=== PATIENT | male | born 1985 | race Caucasian/White ===

== ENCOUNTER 2022-08-26 10:23 | Outpatient (OUT) | payer OTHER, SELFPAY ==
[2022-08-26 10:59] LABS: Bilirubin Urine NEGATIVE (NEGATIVE); Blood Urine NEGATIVE (NEGATIVE); Clarity Urine CLEAR (CLEAR); Color Urine LT. YELLOW (YELLOW); Glucose Urine UA NEGATIVE (NEGATIVE); Ketones Urine NEGATIVE (NEGATIVE); Leukocyte Esterase Urine SMALL (NEGATIVE); Nitrite Urine NEGATIVE (NEGATIVE); Protein Urine NEGATIVE (NEG/TRACE); Specific Gravity Urine 1.015 (1.005-1.025); Urobilinogen Urine 0.2 EU/dL (0.2-1.0); pH Urine 7.5 (5.0-9.0)
[2022-08-26 11:08] LABS: Hematocrit 42.8 % (42.0-54.0); Hemoglobin 14.4 g/dL (14.0-18.0)
[2022-08-26 11:25] LABS: Alanine Aminotransferase 19 U/L (16-63); Albumin Globulin Ratio 1.2; Albumin Level 4.1 g/dL (3.4-5.0); Alkaline Phosphatase 68 U/L (46-116); Amylase 63 U/L (25-115); Anion Gap 12.4; Aspartate Amino Transferase 14 U/L (15-37); BUN Creatinine Ratio 14.3; Bilirubin Total 0.6 mg/dL (0.2-1.0); Calcium 9.3 mg/dL (8.5-10.1); Carbon Dioxide 29.9 mmol/L (21.0-32.0); Chloride 103 mmol/L (98-107); Chol HDL Ratio 3.2; Cholesterol 180 mg/dL (<=200); Estimated GFR (African America >60 (>=60); Estimated GFR (Non-African Ame >60 (>=60); Globulin 3.4 g/dL; Glucose 106 mg/dL (74-106); HDL Cholesterol 57 mg/dL (40-60); LDL Cholesterol Calculated 114.2 mg/dL; Potassium 4.3 mmol/L (3.5-5.1); Sodium 141 mmol/L (136-145); Total Protein 7.5 g/dL (6.4-8.2); Triglycerides 44 mg/dL (<=150); VLDL CHOLESTEROL 8.8 mg/dL
[2022-08-26 11:27] LABS: Estimated Average Glucose 100 mg/dL; Glycohemoglobin A1C 5.1 % (4.5-6.2)
[2022-08-26 11:35] LABS: Prostate Specific Antigen Scrn 1.46 ng/mL (<=4.00)
[2022-08-27 07:09] LABS: HCV Ab Non Reactive (Non Reactive)
[2022-08-27 08:11] LABS: HIV Ab/p24 Ag Screen Non Reactive (Non Reactive)
== END 2022-08-26 10:24 ==
LOC: LAB 10:28
PROVIDERS: PCP Nurse Practitioner Primary Care; Visit Provider Nurse Practitioner Primary Care
DX: Z00.00 Encounter for general adult medical examination without abnormal findings (principal); Z11.59 Encounter for screening for other viral diseases; Z11.4 Encounter for screening for human immunodeficiency virus [HIV]; Z13.6 Encounter for screening for cardiovascular disorders; Z12.5 Encounter for screening for malignant neoplasm of prostate
CPT/HCPCS: 36415; 80053; 80061; 81003; 82150; 83036; 83690; 85014; 85018; 87086; 87150; 87186; G0103

== ENCOUNTER 2022-08-26 15:05 | Outpatient (REF) | payer OTHER, SELFPAY | END 2022-08-26 15:06 | disposition home or self-care (01) | LOC: LAB 15:05 | PROVIDERS: PCP Nurse Practitioner Primary Care; Visit Provider Nurse Practitioner Primary Care | DX: R30.0 Dysuria (principal) ==

== ENCOUNTER 2022-09-20 10:03 | Outpatient (REF) | payer OTHER, SELFPAY | END 2022-09-20 10:04 | disposition home or self-care (01) | LOC: LAB 10:03 | PROVIDERS: PCP Nurse Practitioner Primary Care; Visit Provider Nurse Practitioner Primary Care | DX: N39.0 Urinary tract infection, site not specified (principal) | CPT/HCPCS: 87086 ==

== ENCOUNTER 2022-10-03 20:51 | Outpatient (REF) | payer OTHER, SELFPAY ==
[2022-10-03 21:30] LABS: Bilirubin Urine NEGATIVE (NEGATIVE); Blood Urine SMALL (NEGATIVE); Clarity Urine CLEAR (CLEAR); Color Urine LT. YELLOW (YELLOW); Glucose Urine UA NEGATIVE (NEGATIVE); Ketones Urine NEGATIVE (NEGATIVE); Leukocyte Esterase Urine MODERATE (NEGATIVE); Nitrite Urine NEGATIVE (NEGATIVE); Protein Urine 30 mg/dL (NEG/TRACE); pH Urine 7.5 (5.0-9.0)
[2022-10-03 21:43] LABS: Bacteria Urine SMALL #/HPF (NONE SEEN); Cast Seen? NONE SEEN #/LPF (NONE SEEN); Crystals Seen? None Seen #/HPF (None Seen); Mucus Urine NONE SEEN (NONE SEEN); RBC Urine 0-2 #/HPF (0-2); Squamous Epithelial Cell Urine RARE #/LPF (NONE/RARE); WBC Urine 50-75 #/HPF (NONE SEEN)
== END 2022-10-03 20:52 | disposition home or self-care (01) ==
LOC: LAB 20:51
PROVIDERS: PCP Nurse Practitioner Primary Care; Visit Provider Nurse Practitioner Primary Care
DX: R30.0 Dysuria (principal)
CPT/HCPCS: 81001; 87086; 87150; 87186

== ENCOUNTER 2022-12-20 13:37 | Outpatient (OUT) | payer OTHER, SELFPAY ==
--- NOTE | 2022-12-20 | XR_ITS ---
The [address] [address] Patient Name: MARIAM PURVIS MRN: [id number] date: 1985 Sex: M Assigned Patient Location: LAB Current Patient Location: Accession/Order Number: [id number] Exam Date: 12/20/2022 13:55 Report Date: 12/21/2022 00:15 At the request of: SREEDHAR GARCIA Procedure: XR abdomen 1V EXAMINATION: XR abdomen 1V HISTORY: Kidney stone N20.0 COMPARISON: CT abdomen pelvis 01/25/2021 FINDINGS: KIDNEY/URETER - RIGHT: Questionable 2 adjacent calcifications projecting over superior pole of right kidney, 8 mm and 7 mm respectively. KIDNEY/URETER - LEFT: No visible renal or ureteral calcifications. PELVIS: No visible ureteral stones. Stable pelvic calcifications compatible with phleboliths. BOWEL: No abnormal dilation or deviation. BONES: No acute abnormality. OTHER: Negative. No abnormal gaseous collections. XR/XR abdomen 1V IMPRESSION: 1. Right nephrolithiasis versus summation artifact; new since prior study. Electronically authenticated by: ALDA ALANIS Date: 12/21/2022 00:15
[2022-12-20 15:39] LABS: Prostate Specific Antigen Dx 1.37 ng/mL (<=4.00)
== END 2022-12-20 13:38 | disposition home or self-care (01) ==
LOC: LAB 13:40
PROVIDERS: PCP Nurse Practitioner Primary Care; Visit Provider Urology
DX: Z12.5 Encounter for screening for malignant neoplasm of prostate (principal); N20.0 Calculus of kidney
CPT/HCPCS: 36415; 74018; 84153

== ENCOUNTER 2023-01-03 12:17 | Outpatient (OUT) | payer OTHER, SELFPAY ==
--- NOTE | 2023-01-03 13:04 | PM.PRESUREVA ---
History of Present Illness History of Present Illness Chief complaint: right kidney stone Narrative: Patient presented for preadmission testing. Please see HPI from Dr. Carroll dated 12/30/2022. Review of Systems ROS Narrative Please see ROS from Dr. Carroll dated 12/30/2022. PFSH PFS Medical History (Updated 01/03/23 @ 12:49 by Lizzie Prieto NP) Anxiety ?F41.9 - Anxiety disorder, unspecified (ICD-10) COVID-19 ?U07.1 - COVID-19 (ICD-10) Depression ?F32.A - Depression, unspecified (ICD-10) Electronic cigarette use ?Z78.9 - Other specified health status (ICD-10) Heartburn ?R12 - Heartburn (ICD-10) Hypotension ?I95.9 - Hypotension, unspecified (ICD-10) Insomnia ?G47.00 - Insomnia, unspecified (ICD-10) Kidney stones ?N20.0 - Calculus of kidney (ICD-10) Pancreatitis (2021) ?K85.90 - Acute pancreatitis without necrosis or infection, unspecified (ICD-10) Prostatitis ?N41.9 - Inflammatory disease of prostate, unspecified (ICD-10) Surgical History (Updated 01/03/23 @ 12:49 by Lizzie Prieto NP) History of tonsillectomy ?Z90.89 - Acquired absence of other organs (ICD-10) Family History (Updated 01/03/23 @ 12:49 by Lizzie Prieto NP) Other Family history of colon cancer Family history of diabetes mellitus Family history of heart disease Social History (Updated 01/03/23 @ 12:46 by Lizzie Prieto NP) Within the past year, how often did you have a drink containing alcohol: 2-3 times a week Smoking status: Never smoker Do you use any of these nicotine containing products: e-cigarettes and vaping products Non-prescribed substance use: cannabis (any form) Previous occupational history: [employer] Highest level of school completed/degree received: high school graduate Meds Home Medications and Allergies Allergies Allergy/AdvReac Type Severity Reaction Status Date / Time clindamycin Allergy kim Verified 01/03/23 12:43 metronidazole Allergy kim Verified 01/03/23 12:43 Sulfa (Sulfonamide Allergy Hives Verified 01/03/23 12:43 Antibiotics) Exam Narrative Exam Narrative: Constitutional: Awake, alert, comfortable, well-appearing, nontoxic, interactive, vital signs as charted Head: Normocephalic, atraumatic Neck: Supple, normal appearance, normal range of motion, no meningeal signs, no lymphadenopathy Respiratory: No respiratory distress, breath sounds clear Cardiovascular: Regular rate and rhythm, strong and regular heart tones Abdomen: Nontender, normal bowel sounds, soft, no CVA tenderness Musculoskeletal: Normal gait, no swelling or edema Skin: No rashes or induration, no lesions, only visible skin inspected Neuro: No neurological deficits, normal sensation Psychiatric: Oriented ?3, normal affect Assessment and Plan Assessment and Plan (1) Kidney stones: Plan Right ESWL, possible cystoscopy, right stent placement scheduled with Dr. Carroll 01/19/2023.
--- NOTE | 2023-01-03 13:06 | XR_ITS ---
The [address] [address] Patient Name: MARIAM PURVIS MRN: [id number] date: 1985 Sex: M Assigned Patient Location: [facility] Current Patient Location: [facility] Accession/Order Number: [id number] Exam Date: 01/03/2023 13:00 Report Date: 01/03/2023 13:22 At the request of: SREEDHAR GARCIA Procedure: XR chest 2V EXAM: XR chest 2V HISTORY: Preop exam COMPARISON: None. TECHNIQUE: PA and lateral views of the chest. FINDINGS: The cardiomediastinal silhouette is normal. No focal consolidation is identified. There is no pneumothorax. No pleural effusion is noted. The osseous structures are intact. XR/XR chest 2V IMPRESSION: No acute cardiopulmonary process. Suggestion of COPD. Electronically authenticated by: RUBIN HUYNH Date: 01/03/2023 13:22
[2023-01-03 13:07] LABS: Basophils Percent Auto 0.7 % (0.2-2.0); Eosinophils Absolute Auto 0.1 10^3/uL (0.0-0.7); Hematocrit 41.1 % (42.0-54.0); Hemoglobin 13.7 g/dL (14.0-18.0); Immature Granulocytes Abs Auto 0.02 10^3/uL (0.00-0.03); Immature Granulocytes Pct Auto 0.3 % (0.0-0.5); Lymphocytes Absolute Auto 1.4 10^3/uL (1.2-3.8); Lymphocytes Percent Auto 24.6 % (20.5-60.0); Mean Corpuscular HGB Conc 33.3 g/dL (29.9-35.2); Mean Corpuscular Hemoglobin 32.6 pg (25.9-34.0); Mean Corpuscular Volume 97.9 fL (80.0-94.0); Mean Platelet Volume 9.4 fL (9.5-13.5); Monocytes Absolute Auto 0.3 10^3/uL (0.3-0.8); Monocytes Percent Auto 5.5 % (1.7-12.0); Neutrophils Percent Auto 67.9 % (43.0-75.0); Platelet Count 207 10^3/uL (150-450); Red Cell Distribution Width 12.6 % (11.0-15.0); White Blood Count 5.8 10^3/uL (4.0-11.0)
[2023-01-03 13:51] LABS: Anion Gap 11.9; BUN Creatinine Ratio 12.1; Calcium 8.8 mg/dL (8.5-10.1); Carbon Dioxide 27.7 mmol/L (21.0-32.0); Chloride 104 mmol/L (98-107); Estimated GFR (African America >60 (>=60); Estimated GFR (Non-African Ame >60 (>=60); Glucose 105 mg/dL (74-106); Potassium 4.6 mmol/L (3.5-5.1); Sodium 139 mmol/L (136-145)
[2023-01-03 14:14] LABS: INR 0.96; Partial Thromboplastin Time 26.1 sec (22.3-36.2); Prothrombin Time 10.2 sec (9.0-11.6)
== END 2023-01-03 12:18 | disposition home or self-care (01) ==
PROVIDERS: PCP Nurse Practitioner Primary Care; Visit Provider Urology
DX: Z01.812 Encounter for preprocedural laboratory examination (principal); N20.0 Calculus of kidney; F98.8 Other specified behavioral and emotional disorders with onset usually occurring in childhood and adolescence; N40.0 Benign prostatic hyperplasia without lower urinary tract symptoms; G47.00 Insomnia, unspecified
CPT/HCPCS: 71046; 80048; 85025; 85610; 85730; G0463

== ENCOUNTER 2023-01-19 06:57 | Day surgery (SDC) | payer OTHER, SELFPAY ==
[2023-01-03 13:01] VITALS: BP 95/54; PULSE 60; RESP 14; TEMP 36.3; O2SAT 97; BMI 20.7
[2023-01-19] VITALS (8 sets, daily range): BP systolic 104–178; BP diastolic 73–101; PULSE 49–66; RESP 12–18; TEMP 35.9–36.8; O2SAT 98–100
--- NOTE | 2023-01-19 07:08 | XR_ITS ---
[address] [address] Patient Name: MARIAM PURVIS MRN: [id number] date: 1985 Sex: M Assigned Patient Location: [facility] Current Patient Location: [facility] Accession/Order Number: [id number] Exam Date: 01/19/2023 07:04 Report Date: 01/19/2023 07:35 At the request of: SREEDHAR GARCIA Procedure: XR abdomen 1V EXAMINATION: XR abdomen 1V HISTORY: kidney stone COMPARISON: 12/20/2022 FINDINGS: KIDNEY/URETER - RIGHT: Stable right nephrolith projected over the upper pole measuring 1.4 x 0.8 cm KIDNEY/URETER - LEFT: No visible renal or ureteral calcifications. PELVIS: No visible ureteral calcifications. Any visible calcifications favor phleboliths. BOWEL: No abnormal dilation or deviation. BONES: No acute abnormality. OTHER: Negative. No abnormal gaseous collections. XR/XR abdomen 1V IMPRESSION: Stable right nephrolith Electronically authenticated by: SHAWN FLAHERTY Date: 01/19/2023 07:35
[2023-01-19] MEDS: LACTATED RINGER'S SOLUTION 1,000 ML 50 ML IV (07:29)
[2023-01-19] MEDS: CEFAZOLIN SODIUM/DEXTROSE,ISO 1 GM/50 ML IV.SOLN IV (08:08)
--- NOTE | 2023-01-19 08:48 | PM.URSON ---
Urology Surgery Operative Note Operative Note Procedure Date: 01/19/23 Time Out Performed: yes Pre-op Diagnosis: right nephrolithiasis Post-op Diagnosis: same as pre-op Procedures performed: #1. Right ESWL. Anesthesia: General-LMA Primary Surgeon: Carlos A Carroll Complications: none Estimated blood loss (mL): 0 Findings: large right renal calculus Specimens: none Indications for Procedures: this gentleman has a 1.4 cm right renal calculus which is nonobstructing. He now presents for right ESWL. He has signed an informed consent for this procedure alonng with possible cystoscopy and right stent placement after all risks were explained. Some of these include bleeding, perinephric hematoma, infection and anesthesia. Detailed description of Procedure: The patient was brought to the Operating Room and placed on Siemens electromagnetic lithotripsy treatment table in the supine position. SCDs were placed on their lower extremities and turned on and functioning during the entire case. Timeout was done by all parties in the room. We all agreed upon the patient's identification and the planned procedures for this patient. General Anesthesia was then administered via LMA. Treatment head was then brought to the patient's right side. While using flourscopy the 1.4 cm stone was identified and lined up into the crosshairs. We then began applying shocks at power level II.0 and increased to a maximum power level of 3.5. Intermittent fluoroscopy showed that the stone steadily fragmented. We applied a total of 3000 shocks and our last fluoroscopic image revealed no evidence of soliid stone remaining. The procedure was then terminated. He was then transferred to a rpinckney bed and wheeled to PACU in stable condition.
== END 2023-01-19 09:50 | disposition home or self-care (01) ==
PROVIDERS: PCP Nurse Practitioner Primary Care; Visit Provider Urology
PROC: (CPT 873; principal; 2023-01-19 08:00)
DX: N20.0 Calculus of kidney (principal); G47.00 Insomnia, unspecified; F17.290 Nicotine dependence, other tobacco product, uncomplicated; F41.9 Anxiety disorder, unspecified; Z86.16 Personal history of COVID-19; F32.A Depression, unspecified; R12 Heartburn; Z90.89 Acquired absence of other organs; N40.0 Benign prostatic hyperplasia without lower urinary tract symptoms; N41.1 Chronic prostatitis; N28.1 Cyst of kidney, acquired
CPT/HCPCS: 50590; 36415; 74018; J2704

== ENCOUNTER 2023-08-17 15:38 | Outpatient (OUT) | payer OTHER, SELFPAY ==
--- OUTSIDE RECORDS SUMMARY | 2023-08-17 15:49 | XMS_ITS | CCD ---
Author Organization [facility] Care Team Providers Care Ebay Reseller Name Role Phone ROBERTO KINSEY Referring Unavailable REBECCA HAWKINS Attending Unavailable ROBERTO KINSEY Referring Unavailable Carmen Rebekah Unavailable YUMIKO Holland Attending Provider [phone] Melissa Holland Attending Unavailable Mleissa Holland Admitting Unavailable NO FAMILY, PHYSICIAN Primary [...] Care Unavailable Carlos A CARROLL Attending Unavailable Orzech, Ladonna X Attending Unavailable SHAMMO, NITESH Primary Care Unavailable SHAMMO, NITESH Primary Care Unavailable Orzech, Ladonna X Admitting Unavailable Orzech, Ladonna X Attending Unavailable SHAMMO, NITESH Primary Care Unavailable Carlos A CARROLL Attending Unavailable Allergies Allergy Classification Reported Allergen(s) Allergy Type Date of Onset Reaction(s) Facility (5 sources) Sulfamethoxazole / Trimethoprim; Translations: [sulfamethoxazole-t rimethoprim] Drug Allergy Weal (disorder) [facility] (1 source) Dairy Propensity to adverse reactions stomach upset [place] Other (2 sources) Sulfonamides (Antibiotic); Translations: [Sulfa (Sulfonamide Antibiotics)] Allergy to substance 06-15-19 [facility] (2 sources) Clindamycin; Translations: [clindamycin] Drug Allergy 06-23-19 [facility] (1 source) metroNIDAZOLE Drug Allergy 04-20-19 [facility] (2 sources) Sulfamethoxazole / Trimethoprim; Translations: [Bactrim] Drug Allergy [facility] (4 sources) Clindamycin; Translations: [clindamycin] Drug Allergy Weal (disorder) [facility] (5 sources) Metronidazole; Translations: [metronidazole containing compounds] Drug allergy Weal (disorder) [facility] Medications Current Medications Medication Drug Class(es) Dates Sig (Normalized) Sig (Original) 24 hr alfuzosin hydrochloride 10 mg extended release oral tablet (3 sources) alpha-Adrenergic King Start: 12-30-2022 End: 12-25-2023 take 1 tablet by mouth once daily alfuzosin 10 mg ER Tab 10 mg = 1 tab(s), Oral, Daily, X 90 day(s), # 90 tab(s), Refills(s) 3, Pharmacy: [facility], 181, cm, 12/30/22 9:45:00 EDT, Height/Length [...] day(s), # 42 tab(s), Refills(s) 0, Pharmacy: [facility], 181, cm, 12/30/22 9:45:00 EDT, Height/Length [...] week(s), # 56 cap(s), Refills(s) 0, Pharmacy: [facility], 181, cm, 05/16/23 11:35:00 EST, Height/Length [...] day(s), # 14 tab(s), Refills(s) 0, Pharmacy: [facility], 181, cm, 10/24/22 10:07:00 EDT, Height/Length [...] 10-24-2022 Episodic Other aftercare (1 source) 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; Translations: [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] Onset: 06-24-2022 Episodic Other [...] 19:28 EST FREE TEXT SOURCE: Ivis CALDERON, BOILER OPERATORS SUPERVISOR-C, Ivis CALDERON, BOILER OPERATORS SUPERVISOR-C, Ladonna X Ladonna X FINAL REPORTS Final Report [] Verified Date/Time: 05/18/2023 12:35 EST 5,000 cfu/ml Mixed skin contaminants Performing Locations R1: This test was performed at: [facility], [address] [place] [address], [facility]- , , [facility] Comment on above: Performed By: #### 2 [id number] ####[facility] [address] [place] [address] Screenson 05-18-2023 Screens [id number]#1.00 TIFF Normal [facility] Screens [id number]#1.00 TIFF Normal [facility] Patient Educationon 05-17-19 24 Patient Education Infectious [...] these instructions at home: Medicines ? Take dsaw-osk-izftuus and prescription medicines only as told by [...] Where to find more information ? National [place] of Diabetes and Digestive and Kidney Diseases: (more content not included)... Normal [facility] Urology Office/Clinic Noteon 05-17-2023 Urology Office/Clinic Note [...] Given Patien (more content not included)... Normal [facility] Comment on above: Result Comment: Elec tronically Signed By: CHELY Langston APRN, Ladonna Rodrigues\.br\Date and Time Signed: 05/17/23 16:57 EST RAD - MISCon 01-27-2023 RAD - MISC [id number] 105 [id number]#1.00T IFF Normal [facility] Operative Reporton Operative Report [id number]#1.00T IFF Normal [facility] Lab Reportson 01-12-2023 Lab Reports [id number]#1.00T IFF Normal [facility] Lab Reports [id number]#1.00T IFF Normal [facility] Lab Reports [id number]#1.00T IFF Normal [facility] RAD - MISCon 01-12-2023 RAD - MISC [id number]#1.00T IFF Normal [facility] Ambulatory Visit Summaryon 1 Ambulatory Visit Summary [...] Schedule the Following Appointments Follow Up with JOSE GUTHRIE, Carlos A Burgos, CRYSTAL When: Comments: sched R ESWL w/ poss stent Where: [facility] [address], [place] [address]- [phone] Medications What How Much When Instructions Unchanged [...] these instructions at home: Medicines ? Take txet-lgs-tdflhwx and prescription medicines only as told by [...] ? Ke (more content not included)... Normal [facility] Consent for Procedure/Surger yon 12-30-2022 Consent for Procedure/Surgery [id number]#1.00T IFF Normal [facility] Lab Reportson 12-30-2022 Lab Reports [id number]#1.00T IFF Normal [facility] Patient Educationon 12-31-19 Patient Education Urology Kidney [...] these instructions at home: Medicines ? Take plkz-cfo-hjdndhq and prescription medicines only as told by [...] provider. Document Revised: 11/08/2021 Document Reviewed: 11/08/2021 [employer] Patient Education ? 2022 MD [employer]. Normal [facility] Physician Orderon 12-30-2022 Physician Order [id number]#1.00T IFF Normal [facility] Urology Office/Clinic Noteon 12-30-2022 Urology Office/Clinic Note Chief Complaint PSAKUB HPI Staff 37 yo male here for 2 month f/u. Previous Dx: prostatitis, renal cyst. No hx of urological surgeries. Previous PSA 08/26/22 was 1.4. Pt then started on Levaquin 500mg h89rnmr. [facility] those [facility]... KUB ordered and done 12/20/22 at [facility]. Pt called our office 11/22/22 c/o [...] cortical hypode (more content not included)... Normal [facility] Comment on above: Result Comment: Elec tronically Signed By: JOSE GUTHRIE, Carlos A Burgos\.br\Date and Time Signed: 12/30/22 10:19 EDT\.br\Electronically Co-Signed By: Mary Carmen Montoya\.br\Date and Time Co-Signed: 12/30/22 10:17 EDT RAD - MISCon 12-26-2022 RAD - MISC [id number]#1.00T IFF Normal [facility] Lab Reportson 12-23-2022 Lab Reports [id number]#1.00T IFF Normal [facility] RAD - CT Reporton 11-21-2022 RAD - CT Report [id number]#1.00C D:127 [facility] Lab Reportson 10-25-2022 Lab Reports [id number] [id number]#1.00 CD:127 [facility] Ambulatory Visit Summaryon 0 10-24-2022 Ambulatory Visit Summary MARIAM CLEVELAND :1985 Visit Date:10/24/2022 Ambulatory Visit Instructions Your Diagnosis Prostatitis Renal cyst Prostate cancer screening Tests Performed Urnls Dip Stick Auto w/o Microscopy POC 50704 Your Care Team Attending Physician - Carlos [...] A CARROLL MD Where: [facility] Normal [facility] Lab Reportson 10-24-2022 Lab Reports [id number]#1.00C D:127 Normal [facility] Lab Reports [id number]#1.00 CD:127 Normal [facility] Lab Reports [id number]#1.00 CD:127 Normal [facility] Lab Reports [id number]#1.00 CD:127 Normal [facility] Lab Reports [id number]#1.00 CD:127 Normal [facility] Lab Reports [id number] [id number]#1.00 CD:127 Normal [facility] Patient Educationon 10-25-19 23 Patient Education Infectious [...] these instructions at home: Medicines ? Take zhas-idy-hxbdaxx and prescription medicines only as told by [...] Where to find more information ? National [place] of Diabetes and Digestive and Kidney Diseases: (more content not included)... Normal [facility] Physician Referralon 023 Physician Referral [id number]#1.00C D:127 Normal [facility] Reminderson 10-24-2022 Reminders - [facility] Carm[facility]oya [facility] Sent: 10/24/2022 13:29:00 EDT Show up: 11/24/2022 13:27:00 EDT Subject: PSA Reminder Message Please Remember to:_have pt get PSA drawn after completing abx course (should be done by 11/08/22) for prostatitis. Normal [facility] Urology Office/Clinic Noteon 10-24-2022 Urology Office/Clinic Note [...] [facility] [address], [place] [address]- [phone] Additional Instructions: 2 mos w/ PSA Patient Education Prostatitis I, Mary Carmen Montoya, personally scribed for Dr. Carroll on 10/24/2022 10:54:04. . Documentation recorded by the scribe, Mary Carmen Montoya, accurately reflects the services(s) I performed and decisions made by me. Authenticated by Dr. Carroll on 10/24/2022 10:56:19. Documentation recorded by the scribe, Mary Carmen Montoya, accurately reflects the services(s) I performed and decisions made by me. Authenticated by (more content not included)... Normal [facility] Comment on above: Result Comment: Elec tronically [...] Trimethoprim/Sulfametho xazole <=20 S F Normal [facility] Comment on above: Performed By: #### U RCX #### [facility] [address] [place] [address] Dr. Anisa Carreno UA (CLEAN/CATCH) MICROSCOPIC IF INDICATEon 07-27-2022 Bilirubin Ql (U) Negative Normal NEGATIVE [facility] Comment on above: Performed By: #### U MICRO, ERUR #### [facility] [address] [place] [address] Dr. Anisa Carreno Clarity (U) CLEAR Normal CLEAR [facility] Comment on above: Performed By: #### U MICRO, ERUR #### [facility] [address] [address] [address] Anisa Carreno Color (U) LT. YELLOW Normal YELLOW [facility] Comment on above: Performed By: #### U MICRO, ERUR #### [facility] [address] [place] [address] Dr. Anisa Carreno Glucose Ql (U) Negative Normal NEGATIVE [facility] Comment on above: Performed By: #### U MICRO, ERUR #### [facility] [address] [place] [address] Dr. Anisa Carreno Hemoglobin Ql (U) TRACE-INTACT Abnormal NEGATIVE [facility] Comment on above: Performed By: #### U MICRO, ERUR #### [facility] [address] [place] [address] Dr. Anisa Carreno Ketones Ql (U) Negative Normal NEGATIVE [facility] Comment on above: Performed By: #### U MICRO, ERUR #### [facility] [address] [place] [address] Dr. Anisa Carreno LEUKOCYTES SMALL Abnormal NEGATIVE [facility] Comment on above: Performed By: #### U MICRO, ERUR #### [facility] [address] [place] [address] Dr. Anisa Carreno Nitrite Ql (U) Negative Normal NEGATIVE [facility] Comment on above: Performed By: #### U MICRO, ERUR #### [facility] [address] [address] [address] Anisa Carreno pH (U) 5.5 [pH] Normal 5-9 [facility] Comment on above: Performed By: #### U MICRO, ERUR #### [facility] [address] [place] [address] Dr. Anisa Carreno SPEC GRAVITY 1.025 Normal 1.005-<=1.025 [facility] Comment on above: Performed By: #### U MICRO, ERUR #### [facility] [address] [place] [address] Dr. Anisa Carreno UA PROTEIN Negative Normal NEGATIVE/ TRACE [facility] Comment on above: Performed By: #### U MICRO, ERUR #### [facility] [address] [address] [address] Anisa Carreno UR MICRO IND INDICATED Normal [facility] Comment on above: Performed By: #### U MICRO, ERUR #### [facility] [address] [address] [address] Anisa Carreno Urobilinogen Qn (U) 0.2 {Jody'U}/dL Normal 0.2 - 1.0 [facility] Comment on above: Performed By: #### U MICRO, ERUR #### [facility] [address] [address] [address] Anisa Carreno URINE MICROSCOPIC ONLYon BACTERIA SMALL Abnormal NONE SEEN [facility] Comment on above: Performed By: #### U MICRO, ERUR #### [facility] [address] [place] [address] Dr. Anisa Carreno Bacteria identified Cx Nom (U) CX ALREADY ORDERED Normal [facility] Comment on above: Performed By: #### U MICRO, ERUR #### [facility] [address] [place] [address] Dr. Anisa Carreno CAST NONE SEEN Normal NONE SEEN [facility] Comment on above: Performed By: #### U MICRO, ERUR #### [facility] [address] [address] [address] Anisa Carreno Crystals LM Nom (Urine sed) NONE SEEN Normal NONE SEEN [facility] Comment on above: Performed By: #### U MICRO, ERUR #### [facility] [address] [address] [address] Anisa Carreno Epithelial cells LM Ql (Urine sed) RARE Normal NONE SEEN /RARE [facility] Comment on above: Performed By: #### U MICRO, ERUR #### [facility] [address] [address] [address] Anisa Carreno MUCOUS NONE SEEN Normal NONE SEEN [facility] Comment on above: Performed By: #### U MICRO, ERUR #### [facility] [address] [place] [address] Dr. Anisa Carreno RBC 5-10 Abnormal 0-2 [facility] Comment on above: Performed By: #### U MICRO, ERUR #### [facility] [address] [place] [address] Dr. Anisa Carreno WBC 10-20 Abnormal NONE SEEN [facility] Comment on above: Performed By: #### U MICRO, ERUR #### [facility] [address] [place] [address] Dr. Anisa Carreno CHLAMYDIA/GONOCOCCUS NIDIA (SW AB/URINE/PAPon 06-25-2022 Chlamydia trachomatis, NIDIA Negative Normal Negative [facility] Comment on above: Performed By: #### C T/NGNA #### [facility] [address] [place] [address] Dr. Anisa Carreno Neisseria gonorrhoeae, NIDIA Negative Normal Negative [facility] Comment on above: Performed By: #### C T/NGNA #### [facility] [address] [place] [address] Dr. Anisa Carreno CULTURE URINEon 06-25-2022 CULTURE [...] Trimethoprim/Sulfametho xazole <=20 S F Normal [facility] Comment on above: Performed By: #### U RCX #### [facility] [address] [place] [address] Dr. Anisa Carreno ER URINE PROFILEon 3 Bilirubin Ql (U) Negative Normal NEGATIVE [facility] Comment on above: Performed By: #### U MICRO, ERUR #### [facility] [address] [address] [address] Anisa Carreno Clarity (U) SL CLOUDY Abnormal CLEAR [facility] Comment on above: Performed By: #### U MICRO, ERUR #### [facility] [address] [place] [address] Dr. Anisa Carreno Color (U) LT. YELLOW Normal YELLOW [facility] Comment on above: Performed By: #### U MICRO, ERUR #### [facility] [address] [place] [address] Dr. Anisa Carreno ERUAHD A micrscopic examination will be performed if indicated. Normal [facility] Comment on above: Performed By: #### U MICRO, ERUR #### [facility] [address] [place] [address] Dr. Anisa Carreno Glucose Ql (U) Negative Normal NEGATIVE [facility] Comment on above: Performed By: #### U MICRO, ERUR #### [facility] [address] [place] [address] Dr. Anisa Carreno Hemoglobin Ql (U) TRACE-INTACT Abnormal NEGATIVE [facility] Comment on above: Performed By: #### U MICRO, ERUR #### [facility] [address] [place] [address] Dr. Anisa Carreno Ketones Ql (U) Negative Normal NEGATIVE [facility] Comment on above: Performed By: #### U MICRO, ERUR #### [facility] [address] [place] [address] Dr. Anisa Carreno LEUKOCYTES MODERATE Abnormal NEGATIVE [facility] Comment on above: Performed By: #### U MICRO, ERUR #### [facility] [address] [address] [address] Anisa Carreno Nitrite Ql (U) Negative Normal NEGATIVE [facility] Comment on above: Performed By: #### U MICRO, ERUR #### [facility] [address] [place] [address] Dr. Anisa Carreno pH (U) 6.5 [pH] Normal 5-9 [facility] Comment on above: Performed By: #### U MICRO, ERUR #### [facility] [address] [place] [address] Dr. Anisa Carreno SPEC GRAVITY 1.010 Normal 1.005-<=1.025 [facility] Comment on above: Performed By: #### U MICRO, ERUR #### [facility] [address] [place] [address] Dr. Anisa Carreno UA PROTEIN Negative Normal NEGATIVE/ TRACE [facility] Comment on above: Performed By: #### U MICRO, ERUR #### [facility] [address] [place] [address] Dr. Anisa Carreno UR MICRO IND INDICATED Normal [facility] Comment on above: Performed By: #### U MICRO, ERUR #### [facility] [address] [place] [address] Dr. Anisa Carreno Urobilinogen Qn (U) 0.2 {Jody'U}/dL Normal 0.2 - 1.0 [facility] Comment on above: Performed By: #### U MICRO, ERUR #### [facility] [address] [place] [address] Dr. Anisa Carreno URINE MICROSCOPIC ONLYon BACTERIA TRACE Abnormal NONE SEEN [facility] Comment on above: Performed By: #### U MICRO, ERUR #### [facility] [address] [place] [address] Dr. Anisa Carreno Bacteria identified Cx Nom (U) INDICATED Normal [facility] Comment on above: Performed By: #### U MICRO, ERUR #### [facility] [address] [place] [address] Dr. Anisa Carreno CAST NONE SEEN Normal NONE SEEN [facility] Comment on above: Performed By: #### U MICRO, ERUR #### [facility] [address] [place] [address] Dr. Anisa Carreno Crystals LM Nom (Urine sed) NONE SEEN Normal NONE SEEN [facility] Comment on above: Performed By: #### U MICRO, ERUR #### [facility] [address] [place] [address] Dr. Anisa Carreno Epithelial cells LM Ql (Urine sed) NONE SEEN Normal NONE SEEN /RARE [facility] Comment on above: Performed By: #### U MICRO, ERUR #### [facility] [address] [place] [address] Dr. Anisa Carreno MUCOUS NONE SEEN Normal NONE SEEN [facility] Comment on above: Performed By: #### U MICRO, ERUR #### [facility] [address] [place] [address] Dr. Anisa Carreno RBC 0-2 Normal 0-2 [facility] Comment on above: Performed By: #### U MICRO, ERUR #### [facility] [address] [place] [address] Dr. Anisa Carreno WBC 10-20 Abnormal NONE SEEN [facility] Comment on above: Performed By: #### U MICRO, ERUR #### [facility] [address] [place] [address] Dr. Anisa Carreno CHLAMYDIA/GONOCOCCUS NIDIA ( AB/URINE/PAPon 04-23-2022 Chlamydia trachomatis, NIDIA Negative Normal Negative [facility] Comment on above: Performed By: #### C T/NGNA #### [facility] [address] [address] [address] Anisa Carreno Neisseria gonorrhoeae, NIDIA Negative Normal Negative [facility] Comment on above: Performed By: #### C T/NGNA #### [facility] [address] [place] [address] Dr. Anisa Carreno CULTURE URINEon 04-22-2022 CULTURE [...] Trimethoprim/Sulfametho xazole <=20 S F Normal [facility] Comment on above: Performed By: #### U MICRO, ERUR #### [facility] [address] [place] [address] Dr. Anisa Carreno CBC AUTO DIFFon 04-20-2022 BASO # 0.0 103/ul Normal 0.0-0.1 [facility] Comment on above: Performed By: #### U MICRO, ERUR #### [facility] [address] [place] [address] Dr. Anisa Carreno Basophils/100 WBC (Bld) 0.6 % Normal 0.2-2.0 [facility] Comment on above: Performed By: #### U MICRO, ERUR #### [facility] [address] [place] [address] Dr. Anisa Carreno EO # 0.1 103/ul Normal 0.0-0.7 [facility] Comment on above: Performed By: #### U MICRO, ERUR #### [facility] [address] [place] [address] Dr. Anisa Carreno Eosinophils/100 WBC (Bld) 0.9 % Normal 0.9-7.0 [facility] Comment on above: Performed By: #### U MICRO, ERUR #### [facility] [address] [place] [address] Dr. Anisa Carreno Erythrocyte distribution width (RBC) [Ratio] 12.1 % Normal 11.0-15.0 [facility] Comment on above: Performed By: #### U MICRO, ERUR #### [facility] [address] [place] [address] Dr. Anisa Carreno Hematocrit (Bld) [Volume fraction] 47.2 % Normal 42.0-54.0 [facility] Comment on above: Performed By: #### U MICRO, ERUR #### [facility] [address] [place] [address] Dr. Anisa Carreno Hemoglobin (Bld) [Mass/Vol] 15.8 g/dL Normal 14.0-18.0 [facility] Comment on above: Performed By: #### U MICRO, ERUR #### [facility] [address] [address] [address] Anisa Carreno IG # 0.02 10e3/ul Normal 0.00-0.03 [facility] Comment on above: Performed By: #### U MICRO, ERUR #### [facility] [address] [address] [address] Anisa Carreno IG % 0.3 % Normal 0.0-0.5 [facility] Comment on above: Performed By: #### U MICRO, ERUR #### [facility] [address] [address] [address] Anisa Carreno LYMPH # 1.6 103/ul Normal 1.2-3.8 [facility] Comment on above: Performed By: #### U MICRO, ERUR #### [facility] [address] [place] [address] Dr. Anisa Carreno Lymphocytes/100 WBC (Bld) 24.4 % Normal 20.5-60.0 [facility] Comment on above: Performed By: #### U MICRO, ERUR #### [facility] [address] [place] [address] Dr. Anisa Carreno MANUAL DIFF REQ NO Normal [facility] Comment on above: Performed By: #### U MICRO, ERUR #### [facility] [address] [address] [address] Anisa Carreno MCH (RBC) [Entitic mass] 32.3 pg Normal 25.9-34.0 [facility] Comment on above: Performed By: #### U MICRO, ERUR #### [facility] [address] [address] [address] Anisa Carreno MCHC (RBC) [Mass/Vol] 33.5 g/dL Normal 29.9-35.2 [facility] Comment on above: Performed By: #### U MICRO, ERUR #### [facility] [address] [address] [address] Anisa Carreno MCV (RBC) [Entitic vol] 96.5 fL Critically high 80.0-94.0 [facility] Comment on above: Performed By: #### U MICRO, ERUR #### [facility] [address] [address] [address] Anisa Carreno MONO # 0.5 103/ul Normal 0.3-0.8 [facility] Comment on above: Performed By: #### U MICRO, ERUR #### [facility] [address] [address] [address] Anisa Carreno Monocytes/100 WBC (Bld) 8.1 % Normal 1.7-12.0 [facility] Comment on above: Performed By: #### U MICRO, ERUR #### [facility] [address] [address] [address] Anisa Carreno NEUT # 4.4 103/ul Normal 1.4-6.5 [facility] Comment on above: Performed By: #### U MICRO, ERUR #### [facility] [address] [place] [address] Dr. Anisa Carreno Neutrophils/100 WBC (Bld) 65.7 % Normal 43.0-75.0 [facility] Comment on above: Performed By: #### U MICRO, ERUR #### [facility] [address] [address] [address] Anisa Carreno Platelet mean volume (Bld) [Entitic vol] 8.8 fL Critically low 9.5-13.5 [facility] Comment on above: Performed By: #### U MICRO, ERUR #### [facility] [address] [address] [address] Anisa Carreno PLT 289 103/ul Normal 150-450 [facility] Comment on above: Performed By: #### U MICRO, ERUR #### [facility] [address] [address] [address] Anisa Carreno RBC 4.89 106/ul Normal 4.70-6.10 [facility] Comment on above: Performed By: #### U MICRO, ERUR #### [facility] [address] [address] [address] Anisa Carreno WBC 6.7 103/ul Normal 4.0-11.0 [facility] Comment on above: Performed By: #### U MICRO, ERUR #### [facility] [address] [address] [address] Anisa MOHR URINE PROFILEon 3 Bilirubin Ql (U) Negative Normal NEGATIVE [facility] Comment on above: Performed By: #### U MICRO, ERUR #### [facility] [address] [place] [address] Dr. Anisa Carreno Clarity (U) CLEAR Normal CLEAR [facility] Comment on above: Performed By: #### U MICRO, ERUR #### [facility] [address] [address] [address] Anisa Carreno Color (U) LT. YELLOW Normal YELLOW [facility] Comment on above: Performed By: #### U MICRO, ERUR #### [facility] [address] [place] [address] Dr. Anisa PULLIAMD A micrscopic examination will be performed if indicated. Normal [facility] Comment on above: Performed By: #### U MICRO, ERUR #### [facility] [address] [place] [address] Dr. Anisa Carreno Glucose Ql (U) Negative Normal NEGATIVE [facility] Comment on above: Performed By: #### U MICRO, ERUR #### [facility] [address] [place] [address] Dr. Anisa Carreno Hemoglobin Ql (U) TRACE-INTACT Abnormal NEGATIVE [facility] Comment on above: Performed By: #### U MICRO, ERUR #### [facility] [address] [address] [address] Anisa Carreno Ketones Ql (U) Negative Normal NEGATIVE [facility] Comment on above: Performed By: #### U MICRO, ERUR #### [facility] [address] [address] [address] Anisa Carreno LEUKOCYTES SMALL Abnormal NEGATIVE [facility] Comment on above: Performed By: #### U MICRO, ERUR #### [facility] [address] [place] [address] Dr. Anisa Carreno Nitrite Ql (U) Negative Normal NEGATIVE [facility] Comment on above: Performed By: #### U MICRO, ERUR #### [facility] [address] [place] [address] Dr. Anisa Carreno pH (U) 6.0 [pH] Normal 5-9 [facility] Comment on above: Performed By: #### U MICRO, ERUR #### [facility] [address] [place] [address] Dr. Anisa Carreno SPEC GRAVITY 1.015 Normal 1.005-<=1.025 [facility] Comment on above: Performed By: #### U MICRO, ERUR #### [facility] [address] [place] [address] Dr. Anisa Carreno UA PROTEIN Negative Normal NEGATIVE/ TRACE [facility] Comment on above: Performed By: #### U MICRO, ERUR #### [facility] [address] [place] [address] Dr. Anisa Carreno UR MICRO IND INDICATED Normal [facility] Comment on above: Performed By: #### U MICRO, ERUR #### [facility] [address] [place] [address] Dr. Anisa Carreno Urobilinogen Qn (U) 0.2 {Jody'U}/dL Normal 0.2 - 1.0 [facility] Comment on above: Performed By: #### U MICRO, ERUR #### [facility] [address] [place] [address] Dr. Anisa Carreno LIPASEon 04-20-2022 Lipase [Catalytic activity/Vol] 166.0 U/L Normal 73.0-393.0 [facility] Comment on above: Performed By: #### L IPA, CMP ####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
[2023-08-17 16:39] LABS: Hematocrit 42.4 % (42.0-54.0); Hemoglobin 14.2 g/dL (14.0-18.0); Mean Corpuscular HGB Conc 33.5 g/dL (29.9-35.2); Mean Corpuscular Hemoglobin 32.5 pg (25.9-34.0); Mean Platelet Volume 9.7 fL (9.5-13.5); Platelet Count 269 10^3/uL (150-450); Red Blood Count 4.37 10^6/uL (4.70-6.10); Red Cell Distribution Width 11.9 % (11.0-15.0); White Blood Count 7.8 10^3/uL (4.0-11.0)
[2023-08-17 16:58] LABS: Chol HDL Ratio 3.5; Cholesterol 222 mg/dL (<=200); HDL Cholesterol 63 mg/dL (40-60); Triglycerides 54 mg/dL (<=150); VLDL CHOLESTEROL 10.8 mg/dL
[2023-08-17 16:59] LABS: Alanine Aminotransferase 53 U/L (16-63); Albumin Globulin Ratio 1.6; Albumin Level 4.5 g/dL (3.4-5.0); Alkaline Phosphatase 73 U/L (46-116); Anion Gap 9.9; Aspartate Amino Transferase 11 U/L (15-37); BUN Creatinine Ratio 12.6; Calcium 9.1 mg/dL (8.5-10.1); Carbon Dioxide 30.1 mmol/L (21.0-32.0); Chloride 100 mmol/L (98-107); Estimated GFR (African America >60 (>=60); Estimated GFR (Non-African Ame >60 (>=60); Globulin 2.9 g/dL; Glucose 97 mg/dL (74-106); Sodium 136 mmol/L (136-145); Total Protein 7.4 g/dL (6.4-8.2)
== END 2023-08-17 15:39 | disposition home or self-care (01) ==
LOC: LAB 15:39
PROVIDERS: PCP Nurse Practitioner; Visit Provider Nurse Practitioner
DX: R53.83 Other fatigue (principal); Z13.6 Encounter for screening for cardiovascular disorders; R25.2 Cramp and spasm
CPT/HCPCS: 36415; 80053; 80061; 83735; 84402; 84403; 85027

== ENCOUNTER 2023-08-17 15:45 | Outpatient (OUT) | payer OTHER, SELFPAY ==
--- OUTSIDE RECORDS SUMMARY | 2023-07-27 11:51 | XMS_ITS | CCD ---
Author Organization [facility] Care Team Providers Care Solar Mechanical Engineer Name Role Phone ROBERTO KINSEY Referring Unavailable REBECCA HAWKINS Attending Unavailable ROBERTO KINSEY Referring Unavailable Rebekah Morales Unavailable YUMIKO Holland Attending Provider Melissa Holland Attending Unavailable Melissa Holland Admitting Unavailable NO FAMILY, PHYSICIAN Primary Care Unavailable REQUEST, NONE LISTED Primary Care Unavaila ble REINECK, DR GIO Walters Admitting Unavailabl e REINECK, DR GIO Walters Attending Unavailabl e GRECHNY ., SABRA LOPEZ Consulting Unavailabl e SHAMMO, NITESH Admitting Unavailable SHAMMO, NITESH Attending Unavailable REQUEST, NONE LISTED Primary Care Unavaila ble SHAMMO, NITESH Consulting Unavailable REQUEST, NONE LISTED Primary Care Unavaila ble DIAB ., MARLYS Admitting Unavailable DIAB ., MARLYS Attending Unavailable DIAB ., MARLYS Consulting Unavailable HAY ., DR BECKER Admitting Unavailable HAY ., DR BECKER Attending Unavailable REQUEST, NONE LISTED Primary Care Unavaila ble HAY ., DR BECKER Consulting Unavailable SOUZA ., MR SHERMAN Consulting Unavailable SHAMMO, NITESH MARY LOU Primary Care Physician SHAMMO, NITESH Primary Care Unavailable Carlos A CARROLL Attending Unavailable SHAMMO, NITESH Primary Care Unavailable SHAMMO, NITESH Referring Unavailable Carlos A CARROLL Attending Unavailable SHAMMO, NITESH Primary Care Unavailable Carlos A CARROLL Attending Unavailable Orzech Ladonna X Attending Unavailable SHAMMO, NITSEH Primary Care Unavailable SHAMMO, NITESH Primary Care Unavailable Orzech, Ladonna X Admitting Unavailable Orzech, Ladonna X Attending Unavailable SHAMMO, NITESH Primary Care Unavailable Carlos A CARROLL Attending Unavailable Allergies Allergy Classification Reported Allergen(s) Allergy Type Date of Onset Reaction(s) Facility (5 sources) Sulfamethoxazole / Trimethoprim; Translations: [sulfamethoxazole-t rimethoprim] Drug Allergy Weal (disorder) [facility] (1 source) Dairy Propensity to adverse reactions stomach upset [employer] Other (2 sources) Sulfonamides (Antibiotic); Translations: [Sulfa (Sulfonamide Antibiotics)] Allergy to substance 06-15-19 [facility] (2 sources) Clindamycin; Translations: [clindamycin] Drug Allergy 06-23-19 23 [facility] (1 source) metroNIDAZOLE Drug Allergy 04-20-19 23 [facility] (2 sources) Sulfamethoxazole / Trimethoprim; Translations: [Bactrim] Drug Allergy [facility] (4 sources) Clindamycin; Translations: [clindamycin] Drug Allergy Weal (disorder) [facility] (5 sources) Metronidazole; Translations: [metronidazole containing compounds] Drug allergy Weal (disorder) [facility] Medications Current Medications Medication Drug Class(es) Dates Sig (Normalized) Sig (Original) 24 hr alfuzosin hydrochloride 10 mg extended release oral tablet (3 sources) alpha-Adrenergic King Start: 12-30-2022 End: 12-25-2023 take 1 tablet by mouth once daily alfuzosin 10 mg ER Tab 10 mg = 1 tab(s), Oral, Daily, X 90 day(s), # 90 tab(s), Refills(s) 3, Pharmacy: [id number], 181, cm, 12/30/22 9:45:00 EDT, Height/Length Dosing, 70, kg, 12/30/22 9:45:00 EDT, Weight Dosing Start Date: 12/30/22 Stop Date: 12/25/23 Status: Ordered Calcium and Magnesium oral tablet (1 source) Start: 10-24-2022 Calcium and Magnesium oral tablet 1 tab(s), Oral, Daily, 30 tab(s) Start Date: 10/24/22 Status: Ordered ciprofloxacin 500 mg oral tablet (1 source) Quinolone Antimicrobial Start: 12-30-2022 End: 01-20-2023 take 1 tablet by mouth every twelve hours Cipro 500 mg Tab 500 mg = 1 tab(s), Oral, q12hr, X 21 day(s), # 42 tab(s), Refills(s) 0, Pharmacy: [id number], 181, cm, 12/30/22 9:45:00 EDT, Height/Length Dosing, 70, kg, 12/30/22 9:45:00 EDT, Weight Dosing Start Date: 12/30/22 Stop Date: 01/20/23 Status: Ordered cyclobenzaprine hydrochloride 10 mg oral tablet (1 source) Muscle Relaxant Start: 05-02-2017 take 10 mg by mouth three times daily Cyclobenzaprine Active 10 MG PO Three times daily May 02, 2017 12:00am diclofenac sodium 0.01 mg/mg topical gel (1 source) Nonsteroidal Anti-inflammatory Drug Start: 05-02-2017 apply 2 g topically four times daily Diclofenac Sodium (Voltaren) 1 % gel Active 2 GM TOPICAL Four times daily May 02, 2017 1:34pm apply to single elbow, wrist or hand; gently massage into area; for hand includes palm/fingers/back of hand doxycycline hyclate 100 mg oral capsule (2 sources) Tetracycline-class Drug Start: 05-16-2023 End: 06-13-2023 take 1 capsule by mouth twice daily doxycycline hyclate 100 mg Cap 100 mg = 1 cap(s), Oral, BID, X 4 week(s), # 56 cap(s), Refills(s) 0, Pharmacy: [id number], 181, cm, 05/16/23 11:35:00 EST, Height/Length Dosing, 70, kg, 05/16/23 11:35:00 EST, Weight Dosing Start Date: 05/16/23 Stop Date: 06/13/23 Status: Ordered levoFLOXacin 500 mg oral tablet (1 source) Quinolone Antimicrobial Start: 10-24-2022 End: 11-07-2022 take 1 tablet by mouth every twenty-four hours Levaquin 500 mg Tab 500 mg = 1 tab(s), Oral, q24hr, X 14 day(s), # 14 tab(s), Refills(s) 0, Pharmacy: [id number], 181, cm, 10/24/22 10:07:00 EDT, Height/Length Dosing, 70, kg, 10/24/22 10:07:00 EDT, Weight Dosing Start Date: 10/24/22 Stop Date: 11/07/22 Status: Ordered Multi Vitamin+ (4 sources) Start: 10-24-2022 Multi Vitamin+ 1 tab Start Date: 10/24/22 Status: Ordered predniSONE (2 sources) Start: 05-16-2023 predniSONE 10 mg Tab 10 mg = 1 tab(s) Start Date: 05/16/23 Status: Ordered tiZANidine 4 mg oral tablet (1 source) Central alpha-2 Adrenergic Agonist Start: 06-14-2017 take 4 mg by mouth once daily Tizanidine Active 4 MG PO Daily June 13, 2017 11:00pm Problems Active Problems Problem Classification Problem Date Documented Da te Episodic/Chronic Attention-deficit, conduct, and disruptive behavior disorders (4 sources) Attention deficit hyperactivity disorder, 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 Chronic Calculus of urinary tract (4 sources) Kidney stone; Translations: [Calculus of kidney] Onset: 12-30-2022 Episodic Gastrointestinal hemorrhage (1 source) Hematochezia; Translations: [Melena] 06-14-2017 Episodic Genitourinary symptoms and ill-defined conditions (4 sources) Dysuria; Translations: [Dysuria] Onset: 03-18-2022 Episodic Hyperplasia of prostate (5 sources) Benign prostatic hypertrophy without outflow obstruction; Translations: [Benign prostatic hyperplasia without lower urinary tract symptoms] Onset: 12-30-2022 Chronic Immunizations and screening for infectious disease (2 sources) Contact with and (suspected) exposure to other viral communicable diseases; Translations: [Contact with and (suspected) exposure to other viral communicable diseases] Onset: 11-15-2021 Resolved: 11-15-2021 Episodic Inflammatory conditions of male genital organs (5 sources) Chronic prostatitis; Translations: [Chronic prostatitis] Onset: 12-30-2022 Chronic Inflammatory conditions of male genital organs (1 source) Prostatitis; Translations: [Inflammatory disease of prostate, unspecified] Onset: 10-24-2022 Episodic Other aftercare (1 source) Other long-term (current) drug therapy; Translations: [OTH ADJUNCT PHILOSOPHY FACULTY CURRENT DRUG THERAPY] Onset: 06-24-2022 Episodic Other diseases of kidney and ureters (2 sources) Acquired renal cyst without neoplastic change; Translations: [Cyst of kidney, acquired] Onset: 10-24-2022 Episodic Other diseases of kidney and ureters (4 sources) Cyst of kidney 10-24-2022 Episodic Other screening for suspected conditions (not mental disorders or infectious disease) (2 sources) Encounter for screening for malignant neoplasm of prostate; Translations: [Screening for malignant neoplasm done] Onset: 10-24-2022 Episodic Residual codes; unclassified (4 sources) Insomnia 10-19-2022 Episodic Spondylosis; intervertebral disc disorders; other back problems (1 source) Chronic thoracic back pain; Translations: [Pain in thoracic spine] 06-14-2017 Episodic Substance-related disorders (1 source) Nicotine dependence, cigarettes, uncomplicated; Translations: [NICOTINE DEPEND CIGARETTES UNCOMP] Onset: 06-24-2022 Chronic Unclassified (4 sources) Chronic pain of right upper limb 10-19-2022 Unclassified (4 sources) Patient encounter status 10-24-2022 Urinary tract infections (2 sources) Other urethritis; Translations: [Urinary tract infection, site not specified] Onset: 04-22-2022 Episodic Past or Other Problems Problem Classification Problem Date Documented Da te Episodic/Chronic Bacterial infection; unspecified site (1 source) Chlamydial infection, unspecified; Translations: [CHLAMYDIAL INFECTION UNSPECIFIED] Onset: 04-22-2022 Episodic E Codes: Struck by; against (1 source) Striking against or struck by other objects, initial encounter; Translations: [STRIKING AGNST/STRUCK OTH OBJ INIT] Onset: 10-04-2021 Episodic Nausea and vomiting (4 sources) Nausea; Translations: [NAUSEA] Onset: 04-20-2022 Episodic Open wounds of head; neck; and trunk (1 source) Laceration without foreign body of right eyelid and periocular area, initial encounter; Translations: [LAC NO FB RT EYELID PERIOCULAR INIT] Onset: 10-04-2021 Episodic Other eye disorders (3 sources) Ocular pain, right eye; Translations: [OCULAR PAIN RIGHT EYE] Onset: 10-03-2021 Episodic Other upper respiratory infections (1 source) Acute upper respiratory infection, unspecified Onset: 11-15-2021 Resolved: 11-15-2021 Episodic Sexually transmitted infections (not HIV or hepatitis) (1 source) Gonococcal infection, unspecified; Translations: [GONOCOCCAL INFECTION UNSPECIFIED] Onset: 04-22-2022 Episodic Superficial injury; contusion (3 sources) Contusion of right eyelid and periocular area, initial encounter; Translations: [Injury of conjunctiva and corneal abrasion without foreign body, right eye, initial encounter] Onset: 10-04-2021 Episodic Results Test Name Value Interpretation Reference Range Facility C Urineon 05-18-2023 Bacteria identified Cx Nom (U) Microbiology PROCEDURE: Urine Culture [R1] SOURCE: U Random BODY SITE: COLLECTED DATE/TIME: 05/16/2023 11:46 EST RECEIVED DATE/TIME: 05/16/2023 19:28 EST START DATE/TIME: 05/16/2023 19:28 EST FREE TEXT SOURCE: Ivis CALDERON, PETROLEUM INSPECTOR SUPERVISOR-C, Ivis CALDERON, PETROLEUM INSPECTOR SUPERVISOR-C, Ladonna X Ladonna X FINAL REPORTS Final Report [] Verified Date/Time: 05/18/2023 12:35 EST 5,000 cfu/ml Mixed skin contaminants Performing Locations R1: This test was performed at: [facility], [address] [place] [address], [facility] , , [facility] Comment on above: Performed By: #### [id number] ####[facility] [address] [place], [place] [id number] Screenson 05-18-2023 Screens [id number]#1.00 TIFF Normal [facility] Screens [id number] TIFF Normal [facility] Patient Educationon 05-17-19 24 Patient Education Infectious Disease Prostatitis Prostatitis is swelling or inflammation of the prostate gland, also called the prostate. This gland is about 1.5 inches wide and 1 inch high, and it is involved in making semen. The prostate is located below a man's bladder, in front of the rectum. There are four types of prostatitis: ? Chronic prostatitis (CP), also called chronic pelvic pain syndrome (CPPS). This is the most common type of prostatitis. It is associated with increased muscle tone in the area between the hip bones (pelvic area), around the prostate. This type is also known as a pelvic floor disorder. ? Chronic bacterial prostatitis. This type usually results from an acute bacterial infection in the prostate gland that keeps coming back or has not been treated properly. The symptoms are less severe than those caused by acute bacterial prostatitis, which lasts a shorter time. ? Asymptomatic inflammatory prostatitis. This type does not have symptoms and does not need treatment. This is diagnosed when tests are done for other disorders of the urinary tract or reproductive tract. ? Acute bacterial prostatitis. This type starts quickly and results from an acute bacterial infection in the prostate gland. It is usually associated with a bladder infection, high fever, and chills. This is the least common type of prostatitis. What are the causes? Bacterial prostatitis is caused by an infection from bacteria. Chronic nonbacterial prostatitis may be caused by: ? Factors related to the nervous system. This system includes thebrain, spinal cord, and nerves. ? An autoimmune response. This happens when the body's disease-fighting system attacks healthy tissue in the body by mistake. ? Psychological factors. These have to do with how the mind works. The causes of the other types of prostatitis are usually not known. What are the signs or symptoms? Symptoms of this condition depend on the type of prostatitis you have. Acute bacterial prostatitis Symptoms may include: ? Pain or burning during urination. ? Frequent and sudden urges to urinate. ? Trouble starting to urinate. ? Fever. ? Chills. ? Pain in your muscles or joints, lower back, or lower abdomen. Other types of prostatitis Symptoms may include: ? Sudden urges to urinate, or urinating often. ? Trouble starting to urinate. ? Weak urine stream. ? Dribbling after urination. ? Discharge coming from the penis. ? Pain in the testicles, the penis, or the tip of the penis. ? Pain in the area in front of the rectum and below the scrotum (perineum). ? Pain when ejaculating. How is this diagnosed? This condition may be diagnosed based on: ? A physical and medical exam. ? A digital rectal exam. For this, the health care provider may use a finger to feel the prostate. ? A urine test to check for bacteria. ? A semen sample or blood tests. ? Ultrasound. ? Urodynamic tests to check how your body handles urine. ? Cystoscopy to look inside your bladder or inside the part of your body that drains urine from the bladder (urethra). How is this treated? Treatment for this condition depends on the type of prostatitis. Treatment may involve: ? Medicines to relieve pain or inflammation, or to help relax your muscles. ? Physical therapy. ? Heat therapy. ? Biofeedback. These techniques help you control certain body functions. ? Relaxation exercises. ? Antibiotic medicine, if your condition is caused by bacteria. ? Sitz baths. These warm water baths help to relax your pelvic floor muscles, which helps to relieve pressure on the prostate. Follow these instructions at home: Medicines ? Take qhrr-vaq-cmvinnz and prescription medicines only as told by your health care provider. ? If you were prescribed an antibiotic medicine, take it as told by your health care provider. Do not stop using the antibiotic even if you start to feel better. Managing pain and swelling ? Take sitz baths as directed by your health care provider. For a sitz bath, sit in warm water that is deep enough to cover your hips and buttocks. ? If directed, apply heat to the affected area as often as told by your health care provider. Use the heat source that your health care provider recommends, such as a moist heat pack or a heating pad. ? Place a towel between your skin and the heat source. ? Leave the heat on for 20?30 minutes. ? Remove the heat if your skin turns bright red. This is especially important if you are unable to feel pain, heat, or cold. You may have a greater risk of getting burned. General instructions ? Do exercises as told by your health care provider, if you were prescribed physical therapy, biofeedback, or relaxation exercises. ? Keep all follow-up visits as told by your health care provider. This is important. Where to find more information ? National [place] of Diabetes and Digestive and Kidney Diseases: (more content not included)... Normal [facility] Urology Office/Clinic Noteon 05-17-2023 Urology Office/Clinic Note Chief Complaint possible prostatitis HPI Staff 37 year old male here for possible prostatitis. Dr. Carroll Pt. Last seen 12/30/22. Previous DX: kidney stone, chronic prostatitis (Pt. was given Cipro 250mg x3wks at last visit), BPH and renal cyst. S/P Rt. ESWL done 01/19/23. Dysuria: mild Incomplete bladder emptying: no Hematuria: UA shows trace today Frequency: no Urgency: yes Nocturia: no Stream: good stream Post void dripping: no Wearing pads/ Depends: no Urge incontinence: no Stress incontinence: no Incontinence without Sensory Awareness: no Abdominal pain: no Flank pain: no History of Present Illness I have reviewed and verified the staff HPI to be accurate for this encounter. Review of Systems PHQ Score Initial Depression Screen Score: 0 SCORE Physical Exam Vitals & Measurements HT: 71 in HT: 181 cm WT: 70 kg WT: 154 lb BMI: 21.37 General: Well developed, well nourished, in no acute distress. Genitourinary: Flank Pain: none. Bladder: nonpalpable. Assessment/Plan 1. Chronic prostatitis (N41.1: Chronic prostatitis) UCx 04/20/22, 06/22/22, 07/27/22 - Proteus mirabilis, given Keflex, Rocephin, Doxycycline, and Cipro. Was tx'd with Levaquin 500mg QD x14 days at prior OV and again on 11/23/22 due presentation of pressure in prostate. [1] UA today negative for infection, does have trace intact blood. Pt denies gross hematuria, but does admit to perineal pressure. States that this is not overly bothersome right now, but typically starts as pressure and progresses to full blown UTI . C/o muscle and joint aches, which have been worse since taking cipro months ago. Does admit that he tends to be very sensitive to medications. Reports that he generally improves w/ abx but sxs come right back. Pt is here today requesting cysto d/t prostatitis. Discussed w/ pt that cysto does not necessarily have any clinical significance regarding prostatitis at this time. Pt has tolerated doxycycline okay in the past. Recommend completing longer course of doxycycline to see if this prevents recurrence. Continue alfuzosin 10 mg QD, timed voids. If pt fails therapy, may consider cysto in the future. Will discuss at time of f/u visit. - f/u 3 mos w/ metabolic workup, sooner if needed 2. BPH (benign prostatic hyperplasia) (N40.0: Benign prostatic hyperplasia without lower urinary tract symptoms) Pt previously prescribed alfuzosin 10 mg QD. Reports he has recently stopped this as he does not feel it makes a difference. Discussed importance of alfuzosin in optimizing urination to prevent prostatitis flares. Ordered: Urine Culture 3. Kidney stone (N20.0: Calculus of kidney) CTU 10/25/22 [facility] - nonobstructing 1.2cm RUP stone, no hydro, no L stones. KUB 12/20/22 [facility] - two questionable adjacent 8mm and 7mm stones in RSP, no L stones. [2] s/p R ESWL 01/19/23 Reports that he still occasionally sees small dark grains of sand that pass. Denies flank pain or hematuria. Discussed generalized stone prevention - pt encouraged to increase fluid intake so that he/she producing 2.5L of urine daily. Add 1/4 cup of lemon juice to water throughout the day or can also drink sugar free lemonade or clear soda. Avoid dark marycruz. Restrict sodium intake. Restrict animal protein. Pt was to f/u w/ metabolic workup, but was not able to get ahold of pt. Discussed metabolic workup and valuable information it can potentially give us regarding stone prevention. Pt agrees to complete. - f/u 3 mos w/ met workup. 4. Renal cyst (N28.1: Cyst of kidney, acquired) CT AP w/ con 01/25/21 - bilateral cortical hypodensities, favoring cysts. No hydro. [3] 5. Prostate cancer screening (Z12.5: Encounter for screening for malignant neoplasm of prostate) PSA 08/26/22 - 1.46 12/20/22 - 1.37 [4] Follow-up No qualifying data available Patient Education Benign Prostatic Hyperplasia Dietary Guidelines to Help Prevent Kidney Stones Prostatitis Problem List/Past Medical History Ongoing ADD (attention deficit disorder) BPH (benign prostatic hyperplasia) Chronic prostatitis Chronic right shoulder pain Insomnia Kidney stone Prostate cancer screening Renal cyst Historical No qualifying data Procedure/Surgical History Tonsillectomy. Medications alfuzosin 10 mg ER Tab, 10 mg= 1 tab(s), Oral, Daily, 3 refills, Not taking doxycycline hyclate 100 mg Cap, 100 mg= 1 cap(s), Oral, BID Multi Vitamin+, 1 tab predniSONE 10 mg Tab, 10 mg= 1 tab(s) Allergies clindamycin (Hives) Bactrim (Hives) metronidazole (Hives) Social History Tobacco Never (less than 100 in lifetime) Tobacco Use:. Current vaping or e-cigarette use Smokeless Tobacco Use:. Vaping, Household tobacco concerns: No. Yes, 12/30/2022 Family History Colon cancer stage 1: Grandparent. Diabetes mellitus type 1: Grandparent. Immunizations Vaccine Date Status Comments influenza virus vaccine, inactivated - Not Given Patien (more content not included)... Normal [facility] Comment on above: Result Comment: Elec tronically Signed By: CHELY Langston APRN, Ladonna Rodrigues\.br\Date and Time Signed: 05/17/23 16:57 EST RAD - MISCon 01-27-2023 RAD - MISC [id number] IFF Normal [facility] Operative Reporton Operative Report [id number] IFF Normal [facility] Lab Reportson 01-12-2023 Lab Reports [id number]#1.00T IFF Normal [facility] Lab Reports [id number] IFF Normal [facility] Lab Reports [id number] IFF Normal [facility] RAD - MISCon 01-12-2023 RAD - MISC [id number] IFF Normal [facility] Ambulatory Visit Summaryon 1 Ambulatory Visit Summary MARIAM [place] :1985 Visit Date:12/30/2022 Ambulatory Visit Instructions Your Diagnosis Kidney stone Chronic prostatitis Prostate cancer screening Renal cyst Your Care Team Attending Physician - Carlos A CARROLL MD Primary Care Physician - NITESH JACOBSEN CNP This Is Your Medications List Contact prescribing physician if questions or concerns multivitamin (Multi Vitamin+) Procedures Performed Tonsillectomy. Discharge Vitals Heart Rate (Peripheral) 68 Respiratory Rate 16 Blood Pressure 95/70 Height 181 cm Height 71 in Weight 70 kg Weight 154 lb BMI 21.37 What to do next You Need to Schedule the Following Appointments Follow Up with Carlos A CARROLL MD, URL When: Comments: tracy R ESWL w/ poss stent Where: [facility] [address], [place] [address] [phone] Medications What How Much When Instructions Unchanged multivitamin (Multi Vitamin+) 1 tab Contact prescribing physician if questions or concerns Allergies clindamycin (Hives) Bactrim (Hives) metronidazole (Hives) Problems Ongoing - Any problem that you are currently receiving treatment for. ADD (attention deficit disorder) Chronic prostatitis Chronic right shoulder pain Insomnia Kidney stone Prostate cancer screening Renal cyst Education Materials Kidney Stones Kidney stones are rock-like masses that form inside of the kidneys. Kidneys are organs that make pee (urine). A kidney stone may move into other parts of the urinary tract, including: ? The tubes that connect the kidneys to the bladder (ureters). ? The bladder. ? The tube that carries urine out of the body (urethra). Kidney stones can cause very bad pain and can block the flow of pee. The stone usually leaves your body (passes) through your pee. You may need to have a doctor take out the stone. What are the causes? Kidney stones may be caused by: ? A condition in which certain glands make too much parathyroid hormone (primary hyperparathyroidism). ? A buildup of a type of crystals in the bladder made of a chemical called uric acid. The body makes uric acid when you eat certain foods. ? Narrowing (stricture) of one or both of the ureters. ? A kidney blockage that you were born with. ? Past surgery on the kidney or the ureters, such as gastric bypass surgery. What increases the risk? You are more likely to develop this condition if: ? You have had a kidney stone in the past. ? You have a family history of kidney stones. ? You do not drink enough water. ? You eat a diet that is high in protein, salt (sodium), or sugar. ? You are overweight or very overweight (obese). What are the signs or symptoms? Symptoms of a kidney stone may include: ? Pain in the side of the belly, right below the ribs (flank pain). Pain usually spreads (radiates) to the groin. ? Needing to pee often or right away (urgently). ? Pain when going pee (urinating). ? Blood in your pee (hematuria). ? Feeling like you may vomit (nauseous). ? Vomiting. ? Fever and chills. How is this treated? Treatment depends on the size, location, and makeup of the kidney stones. The stones will often pass out of the body through peeing. You may need to: ? Drink more fluid to help pass the stone. In some cases, you may be given fluids through an IV tube put into one of your veins at the hospital. ? Take medicine for pain. ? Make changes in your diet to help keep kidney stones from coming back. Sometimes, medical procedures are needed to remove a kidney stone. This may involve: ? A procedure to break up kidney stones using a beam of light (laser) or shock waves. ? Surgery to remove the kidney stones. Follow these instructions at home: Medicines ? Take hhvx-ypt-cwqvmry and prescription medicines only as told by your doctor. ? Ask your doctor if the medicine prescribed to you requires you to avoid driving or using heavy machinery. Eating and drinking ? Drink enough fluid to keep your pee pale yellow. You may be told to drink at least 8?10 glasses of water each day. This will help you pass the stone. ? If told by your doctor, change your diet. This may include: ? Limiting how much salt you eat. ? Eating more fruits and vegetables. ? Limiting how much meat, poultry, fish, and eggs you eat. ? Follow instructions from your doctor about eating or drinking restrictions. General instructions ? Collect pee samples as told by your doctor. You may need to collect a pee sample: ? 24 hours after a stone comes out. ? 8?12 weeks after a stone comes out, and every 6?12 months after that. ? Strain your pee every time you pee (urinate), for as long as told. Use the strainer that your doctor recommends. ? Do not throw out the stone. Keep it so that it can be tested by your doctor. ? Ke (more content not included)... [facility] Consent for Procedure/Surger yon 12-30-2022 Consent for Procedure/Surgery [id number] IFF Normal [facility] Lab Reportson 12-30-2022 Lab Reports [id number] IFF Normal [facility] Patient Educationon 12-31-19 Patient Education Urology Kidney Stones Kidney stones are rock-like masses that form inside of the kidneys. Kidneys are organs that make pee (urine). A kidney stone may move into other parts of the urinary tract, including: ? The tubes that connect the kidneys to the bladder (ureters). ? The bladder. ? The tube that carries urine out of the body (urethra). Kidney stones can cause very bad pain and can block the flow of pee. The stone usually leaves your body (passes) through your pee. You may need to have a doctor take out the stone. What are the causes? Kidney stones may be caused by: ? A condition in which certain glands make too much parathyroid hormone (primary hyperparathyroidism). ? A buildup of a type of crystals in the bladder made of a chemical called uric acid. The body makes uric acid when you eat certain foods. ? Narrowing (stricture) of one or both of the ureters. ? A kidney blockage that you were born with. ? Past surgery on the kidney or the ureters, such as gastric bypass surgery. What increases the risk? You are more likely to develop this condition if: ? You have had a kidney stone in the past. ? You have a family history of kidney stones. ? You do not drink enough water. ? You eat a diet that is high in protein, salt (sodium), or sugar. ? You are overweight or very overweight (obese). What are the signs or symptoms? Symptoms of a kidney stone may include: ? Pain in the side of the belly, right below the ribs (flank pain). Pain usually spreads (radiates) to the groin. ? Needing to pee often or right away (urgently). ? Pain when going pee (urinating). ? Blood in your pee (hematuria). ? Feeling like you may vomit (nauseous). ? Vomiting. ? Fever and chills. How is this treated? Treatment depends on the size, location, and makeup of the kidney stones. The stones will often pass out of the body through peeing. You may need to: ? Drink more fluid to help pass the stone. In some cases, you may be given fluids through an IV tube put into one of your veins at the hospital. ? Take medicine for pain. ? Make changes in your diet to help keep kidney stones from coming back. Sometimes, medical procedures are needed to remove a kidney stone. This may involve: ? A procedure to break up kidney stones using a beam of light (laser) or shock waves. ? Surgery to remove the kidney stones. Follow these instructions at home: Medicines ? Take oovx-vwt-gzrpxxa and prescription medicines only as told by your doctor. ? Ask your doctor if the medicine prescribed to you requires you to avoid driving or using heavy machinery. Eating and drinking ? Drink enough fluid to keep your pee pale yellow. You may be told to drink at least 8?10 glasses of water each day. This will help you pass the stone. ? If told by your doctor, change your diet. This may include: ? Limiting how much salt you eat. ? Eating more fruits and vegetables. ? Limiting how much meat, poultry, fish, and eggs you eat. ? Follow instructions from your doctor about eating or drinking restrictions. General instructions ? Collect pee samples as told by your doctor. You may need to collect a pee sample: ? 24 hours after a stone comes out. ? 8?12 weeks after a stone comes out, and every 6?12 months after that. ? Strain your pee every time you pee (urinate), for as long as told. Use the strainer that your doctor recommends. ? Do not throw out the stone. Keep it so that it can be tested by your doctor. ? Keep all follow-up visits as told by your doctor. This is important. You may need follow-up tests. How is this prevented? To prevent another kidney stone: ? Drink enough fluid to keep your pee pale yellow. This is the best way to prevent kidney stones. ? Eat healthy foods. ? Avoid certain foods as told by your doctor. You may be told to eat less protein. ? Stay at a healthy weight. Where to find more information ? National Kidney Foundation (NKF): www.kidney.org ? [employer] (UCF): www.urologyhealth.org Contact a doctor if: ? You have pain that gets worse or does not get better with medicine. Get help right away if: ? You have a fever or chills. ? You get very bad pain. ? You get new pain in your belly (abdomen). ? You pass out (faint). ? You cannot pee. Summary ? Kidney stones are rock-like masses that form inside of the kidneys. ? Kidney stones can cause very bad pain and can block the flow of pee. ? The stones will often pass out of the body through peeing. ? Drink enough fluid to keep your pee pale yellow. This information is not intended to replace advice given to you by your health care provider. Make sure you discuss any questions you have with your health care provider. Document Revised: 11/08/2021 Document Reviewed: 11/08/2021 [employer] Patient Education ? 2022 [employer]. [facility] Physician Orderon 12-30-2022 Physician Order [id number] IFF Normal [facility] Urology Office/Clinic Noteon 12-30-2022 Urology Office/Clinic Note Chief Complaint PSAKUB HPI Staff 37 yo male here for 2 month f/u. Previous Dx: prostatitis, renal cyst. No hx of urological surgeries. Previous PSA 08/26/22 was 1.4. Pt then started on Levaquin 500mg [id number]. [facility]. due to those results... KUB ordered and done 12/20/22 at [facility]. Pt called our office 11/22/22 c/o prostate pressure. Was given another round of Levaquin therapy. Repeat PSA 12/20/22 is 1.37. Currently having prostate pressure. Not aggravated when sitting. States the pressure is above the pubic bone. Mild Pain & Burning while voiding for the past 2wks. C/O low energy. Denies visible blood in urine. Occasional difficulty getting stream started. Intermittent cloudy urine. History of Present Illness Tests reviewed: reviewed UA, PSA, CTU, KUB I have reviewed the previous health record information and history for this patient from Dr. Carroll. I have reviewed and verified the staff HPI to be accurate for this encounter. Review of Systems PHQ Score Initial Depression Screen Score: 0 ROS - Provider Constitutional: denies weight loss, denies hot flashes. Eyes: denies eye problems. Gastrointestinal: denies nausea, denies vomiting. Cardiovascular: denies chest pain or angina. Integumentary: no dryness Musculoskeletal: denies musculoskeletal symptoms. ENMT: denies otolaryngeal symptoms. Respiratory: no shortness of breath. Heme/Lymph: denies easy bleeding tendency, denies easy bruising tendency. Psychiatric: no confusion, no anxiety. Genitourinary: See HPI. Physical Exam Vitals & Measurements HR: 68(Peripheral) RR: 16 BP: 95/70 HT: 71 in HT: 181 cm WT: 70 kg WT: 154 lb BMI: 21.37 General Appearance: alert, no distress, well nourished, well developed male. Genitourinary: normal scrotum, normal testes, normal urethra, normal epididymis, normal vas deferens/spermatic cord. Flank Pain: none. Bladder: nonpalpable. Assessment/Plan 1. Kidney stone (N20.0: Calculus of kidney) CTU 10/25/22 [facility] - nonobstructing 1.2cm RUP stone, no hydro, no L stones. KUB 12/20/22 [facility] - two questionable adjacent 8mm and 7mm stones in RSP, no L stones. Discussed management options including medical expulsive therapy x 4-6 week vs intervention including extracorporeal shockwave lithotripsy vs ureteroscopy with laser lithotripsy/stone basket extraction possible stent. Risks/benefits of each were discussed including but not limited to: MET- renal damage, pain or infection; ESWL- bleeding, hematoma, pain, infection, inability to break up the stone, ureteral obstruction, cardiac arrhythmias, damage to surrounding structures and need for additional procedures; ureteroscopy - bleeding, pain, infection, damage to surrounding structures, ureteral perforation, stricture, inability to treat the stone and need for additional procedures. If a stent is placed, pt understands this is not permanent and needs to be removed or exchanged within 3 months to prevent encrustation, infection, permanent renal damage and need for more invasive procedures. Pt is candidate for ESWL. -Will schedule R ESWL w/ possible stent placement. The procedure risks, benefits, details and treatment alternatives have been discussed with the patient. These include blood in the urine, infection, bleeding around the kidney, kidney bruising, inability to break up the stone, need for blood transfusion, blockage from stone fragments, and need for additional procedures, among others. Full informed consent has been obtained. Will order General anesthesia. 2. Chronic prostatitis (N41.1: Chronic prostatitis) UCx 04/20/22, 06/22/22, 07/27/22 - Proteus mirabilis, given Keflex, Rocephin, Doxycycline, and Cipro. Was tx'd with Levaquin 500mg QD x14 days at prior OV and again on 11/23/22 due presentation of pressure in prostate. UA today negative for blood and infection. Continues to have prostate pressure. Has mild pain/burning with urination. Reports cloudy urine a few weeks ago. Admits he does have some hesitancy with urination. C/o lethargy. States Cipro improved sxs the most. Pt to take Cipro x3 weeks. -Take Cipro 250mg x3wks. Rx sent to [facility]. 3. BPH (benign prostatic hyperplasia) (N40.0: Benign prostatic hyperplasia without lower urinary tract symptoms) Discussed pt has enlarged prostate which obstructs urine channel and promotes prostate infection. See #2. Advised pt medication for bladder outlet will improve long-term urinary sxs. Pt agrees to try Alfuzosin 10mg qd. Discussed the medication side effects, and the patient will monitor closely for these, as well as for symptom improvement. If severe side effects occur, the medication should be stopped and the office notified. -Begin Alfuzosin. Rx sent to [facility]. 4. Prostate cancer screening (Z12.5: Encounter for screening for malignant neoplasm of prostate) PSA 08/26/22 - 1.46 12/20/22 - 1.37 5. Renal cyst (N28.1: Cyst of kidney, acquired) CT AP w/ con 01/25/21 - bilateral cortical hypode (more content not included)... [facility] Comment on above: Result Comment: Elec tronically Signed By: JOSE GUTHRIE, Carlos A Morton.br\Date and Time Signed: 12/30/22 10:19 EDT\.br\Electronically Co-Signed By: Mary Carmen Montoya\.br\Date and Time Co-Signed: 12/30/22 10:17 EDT RAD - MISCon 12-26-2022 RAD - MISC [id number] IFF Normal [facility] Lab Reportson 12-23-2022 Lab Reports [id number] IFF [facility] RAD - CT Reporton 11-21-2022 RAD - CT Report [id number] D:127 Normal [facility] Lab Reportson 10-25-2022 Lab Reports [id number]#1.00 CD:127 Normal [facility] Ambulatory Visit Summaryon 0 10-24-2022 Ambulatory Visit Summary MARIAM C[place] :1985 Visit Date:10/24/2022 Ambulatory Visit Instructions Your Diagnosis Prostatitis Renal cyst Prostate cancer screening Tests Performed Urnls Dip Stick Auto w/o Microscopy POC 64025 Your Care Team Attending Physician - Carlos A CARROLL MD Primary Care Physician - NITESH JACOBSEN CNP Referring Physician - NITESH JACOBSEN CNP This Is Your Medications List levofloxacin (Levaquin 500 mg Tab) Contact prescribing physician if questions or concerns multivitamin (Multi Vitamin+) multivitamin with minerals (Calcium and Magnesium oral tablet) Procedures Performed Tonsillectomy. Discharge Vitals Heart Rate (Peripheral) 80 Blood Pressure 100/60 Height 181 cm Height 71 in Weight 70 kg Weight 154 lb BMI 21.37 What to do next Scheduled Follow-Up Appointments Monday 9:15 AM EDT With: Carlos A CARROLL MD Where: [facility] Lab Reportson 10-24-2022 Lab Reports [id number] D:127 Normal [facility] Lab Reports [id number] CD:127 Normal [facility] Lab Reports [id number] CD:127 Normal [facility] Lab Reports [id number] CD:127 Normal [facility] Lab Reports [id number] CD:127 Normal [facility] Lab Reports [id number]#1.00 CD:127 Normal [facility] Patient Educationon 10-25-19 23 Patient Education Infectious Disease Prostatitis Prostatitis is swelling or inflammation of the prostate gland, also called the prostate. This gland is about 1.5 inches wide and 1 inch high, and it is involved in making semen. The prostate is located below a man's bladder, in front of the rectum. There are four types of prostatitis: ? Chronic prostatitis (CP), also called chronic pelvic pain syndrome (CPPS). This is the most common type of prostatitis. It is associated with increased muscle tone in the area between the hip bones (pelvic area), around the prostate. This type is also known as a pelvic floor disorder. ? Chronic bacterial prostatitis. This type usually results from an acute bacterial infection in the prostate gland that keeps coming back or has not been treated properly. The symptoms are less severe than those caused by acute bacterial prostatitis, which lasts a shorter time. ? Asymptomatic inflammatory prostatitis. This type does not have symptoms and does not need treatment. This is diagnosed when tests are done for other disorders of the urinary tract or reproductive tract. ? Acute bacterial prostatitis. This type starts quickly and results from an acute bacterial infection in the prostate gland. It is usually associated with a bladder infection, high fever, and chills. This is the least common type of prostatitis. What are the causes? Bacterial prostatitis is caused by an infection from bacteria. Chronic nonbacterial prostatitis may be caused by: ? Factors related to the nervous system. This system includes thebrain, spinal cord, and nerves. ? An autoimmune response. This happens when the body's disease-fighting system attacks healthy tissue in the body by mistake. ? Psychological factors. These have to do with how the mind works. The causes of the other types of prostatitis are usually not known. What are the signs or symptoms? Symptoms of this condition depend on the type of prostatitis you have. Acute bacterial prostatitis Symptoms may include: ? Pain or burning during urination. ? Frequent and sudden urges to urinate. ? Trouble starting to urinate. ? Fever. ? Chills. ? Pain in your muscles or joints, lower back, or lower abdomen. Other types of prostatitis Symptoms may include: ? Sudden urges to urinate, or urinating often. ? Trouble starting to urinate. ? Weak urine stream. ? Dribbling after urination. ? Discharge coming from the penis. ? Pain in the testicles, the penis, or the tip of the penis. ? Pain in the area in front of the rectum and below the scrotum (perineum). ? Pain when ejaculating. How is this diagnosed? This condition may be diagnosed based on: ? A physical and medical exam. ? A digital rectal exam. For this, the health care provider may use a finger to feel the prostate. ? A urine test to check for bacteria. ? A semen sample or blood tests. ? Ultrasound. ? Urodynamic tests to check how your body handles urine. ? Cystoscopy to look inside your bladder or inside the part of your body that drains urine from the bladder (urethra). How is this treated? Treatment for this condition depends on the type of prostatitis. Treatment may involve: ? Medicines to relieve pain or inflammation, or to help relax your muscles. ? Physical therapy. ? Heat therapy. ? Biofeedback. These techniques help you control certain body functions. ? Relaxation exercises. ? Antibiotic medicine, if your condition is caused by bacteria. ? Sitz baths. These warm water baths help to relax your pelvic floor muscles, which helps to relieve pressure on the prostate. Follow these instructions at home: Medicines ? Take potl-teu-kgscbej and prescription medicines only as told by your health care provider. ? If you were prescribed an antibiotic medicine, take it as told by your health care provider. Do not stop using the antibiotic even if you start to feel better. Managing pain and swelling ? Take sitz baths as directed by your health care provider. For a sitz bath, sit in warm water that is deep enough to cover your hips and buttocks. ? If directed, apply heat to the affected area as often as told by your health care provider. Use the heat source that your health care provider recommends, such as a moist heat pack or a heating pad. ? Place a towel between your skin and the heat source. ? Leave the heat on for 20?30 minutes. ? Remove the heat if your skin turns bright red. This is especially important if you are unable to feel pain, heat, or cold. You may have a greater risk of getting burned. General instructions ? Do exercises as told by your health care provider, if you were prescribed physical therapy, biofeedback, or relaxation exercises. ? Keep all follow-up visits as told by your health care provider. This is important. Where to find more information ? National [place] of Diabetes and Digestive and Kidney Diseases: (more content not included)... [facility] Physician Referralon 023 Physician Referral [id number] D:127 Normal [facility] Reminderson 10-24-2022 Reminders - From: Mary Carmen Montoya To: ANTONIO Carroll; Sent: 10/24/2022 13:29:00 EDT Show up: 11/24/2022 13:27:00 EDT Subject: PSA Reminder Message Please Remember to:_have pt get PSA drawn after completing abx course (should be done by 11/08/22) for prostatitis. [facility] Urology Office/Clinic Noteon 10-24-2022 Urology Office/Clinic Note Chief Complaint New Pt referal HPI Staff Evaluation requested by Nitesh POWELL due to recurrent prostatitis. Pt is a new pt. Never before seen in our office. CT AP w/ 01/25/21 - Chlam/Jason Swab 04/20/22 +C&S 04/20/22- >100k Proteus Mirabilis 04/20/22- BUN 16.0 & Cr 0.94 - Chlam/Jason Swab 06/22/22 +C&S 06/22/22- >100k Proteus Mirabilis +C&S 07/27/22- >100k Proteus Mirabilis PSA 08/26/22 1.46 Dysuria: _on and off still feels irritation Incomplete bladder emptying: _denies Hematuria: denies visible blood Frequency: 5 times a day Urgency: denies Nocturia: one a night Stream: a little bit Leaking: denies Post void dripping: denies Wearing pads/ Depends: denies Urge incontinence: denies Stress incontinence: denies Incontinence without Sensory Awareness: denies Abdominal pain: denies Flank pain: denies Sexual complaints: denies History of Present Illness Tests reviewed: reviewed UA, referral records I have reviewed the previous health record information and history for this patient from external providers_. I have reviewed and verified the staff HPI to be accurate for this encounter. There have been no associated fever, chills, flank pain, or blood in the urine. Denies any urinary infections since last encounter. Review of Systems PHQ Score Initial Depression Screen Score: 0 ROS - Provider Constitutional: denies weight loss, denies hot flashes. Eyes: denies eye problems. Gastrointestinal: denies nausea, denies vomiting. Cardiovascular: denies chest pain or angina. Integumentary: no dryness Musculoskeletal: denies musculoskeletal symptoms. ENMT: denies otolaryngeal symptoms. Respiratory: no shortness of breath. Heme/Lymph: denies easy bleeding tendency, denies easy bruising tendency. Psychiatric: no confusion, no anxiety. Genitourinary: See HPI. Physical Exam Vitals & Measurements HR: 80(Peripheral) BP: 100/60 HT: 71 in HT: 181 cm WT: 70 kg WT: 154 lb BMI: 21.37 General Appearance: alert, no distress, well nourished, well developed male. Head: normocephalic . Eyes: normal orbit and globe. ENMT: normal examination of external ears. Chest: Lungs CTA, respirations non labored. Cardiovascular: regular rate and rhythm. Abdomen: soft, non distended, mild R cva tenderness, no mass or organomegaly, no hernia. Genitourinary: normal scrotum, normal testes, normal urethra, normal epididymis, normal vas deferens/spermatic cord. Flank Pain: none. Bladder: nonpalpable. Penis: normal shaft, normal glans. Lymph Nodes: unremarkable palpation of the cervical area. Skin: warm, dry, no bruising. Psychiatric: cooperative, affect appropriate for age, normal judgement, euthymic mood. Assessment/Plan New pt referred by SHERRY Meza for repeated bacterial prostatitis. No hx of urological surgeries. 1. Prostatitis (N41.9: Inflammatory disease of prostate, unspecified) UCx 04/20/22, 06/22/22, 07/27/22 - Proteus mirabilis. Pt was given Keflex, Rocephin, Doxycycline, and Cipro. States Cipro seemed to have improved sxs the most. Reports he was on Cipro x7 days. Admits he does have gut sensitivity to abx. Advised pt to have probiotics and yogurt daily while on abx. Pt to begin Levaquin 500mg QD x14 days. Discussed the medication side effects, and the patient will monitor closely for these, as well as for symptom improvement. If severe side effects occur, the medication should be stopped and the office notified. stream is good. he empties well and voids q2-3 hours during the day. No recent CT scan done. UA today shows trace-intact blood and is negative for infection. Discussed importance of adequate bladder emptying as well as increased fluid intake. Pt has CT scan scheduled tomorrow and will schedule a possible cystoscopy depending on results. All questions/concerns were discussed. Pt to call the office if he encounters any issues prior. Pt acknowledges understanding. 2. Renal cyst (N28.1: Cyst of kidney, acquired) CT AP w/ con 01/25/21 showed bilateral cortical hypodensities, favoring cysts. No hydro. 3. Prostate cancer screening (Z12.5: Encounter for screening for malignant neoplasm of prostate) Most recent PSA 08/26/22 is 1.46. Discussed this may be elevated due to prostate infection. Pt to get PSA redrawn after completing abx course. Follow-up With When Contact Information JOSE GUTHRIE, Carlos A Burgos, URL [facility] [address], [place] [phone]- [phone] Additional Instructions: 2 mos w/ PSA Patient Education Prostatitis I, Mary Carmen Montyoa, personally scribed for Dr. Carroll on 10/24/2022 10:54:04. . Documentation recorded by the scribMary Carmen gooden, accurately reflects the services(s) I performed and decisions made by me. Authenticated by Dr. Carroll on 10/24/2022 10:56:19. Documentation recorded by the bethanyibMary Carmen gooden, accurately reflects the services(s) I performed and decisions made by me. Authenticated by (more content not included)... Normal [facility] Comment on above: Result Comment: Elec tronically Signed By: Carlos A CARROLL MD\.br\Date and Time Signed: 10/24/22 10:57 EDT\.br\Electronically Co-Signed By: Mary Carmen Montoya\.br\Date and Time Co-Signed: 10/24/22 10:54 EDT CULTURE URINEon 07-29-2022 CULTURE URINE Isolate 1 Proteus mirabilis >100,000 cfu/mL of ORGANISM 1 Proteus mirabilis ANTIBIOTIC M.I.C RX STATUS Ampicillin <=2 S F Ampicillin/Sulbactam <=2 S F Piperacillin/Tazobactam <=4 S F Cefazolin <=4 S F Ceftazidime <=1 S F Ceftriaxone <=1 S F Ertapenem <=0.5 S F Imipenem 1 S F Amikacin <=2 S F Gentamicin <=1 S F Tobramycin <=1 S F Ciprofloxacin <=0.25 S F Levofloxacin <=0.12 S F Nitrofurantoin 128 R F Trimethoprim/Sulfametho xazole <=20 S F Normal [facility] Comment on above: Performed By: #### U RCX #### [facility] [address] [place] [address] Dr. Anisa Carreno UA (CLEAN/CATCH) MICROSCOPIC IF INDICATEon 07-27-2022 Bilirubin Ql (U) Negative Normal NEGATIVE [facility] Comment on above: Performed By: #### U MICRO, ERUR #### [facility] [address] [address] [address] Anisa Carreno Clarity (U) CLEAR Normal CLEAR [facility] Comment on above: Performed By: #### U MICRO, ERUR #### [facility] [address] [address] [address] Anisa Carreno Color (U) LT. YELLOW Normal YELLOW [facility] Comment on above: Performed By: #### U MICRO, ERUR #### [facility] [address] [place] [address] Dr. Anisa Carreno Glucose Ql (U) Negative Normal NEGATIVE [facility] Comment on above: Performed By: #### U MICRO, ERUR #### [facility] [address] [place] [address] Dr. Anisa Carreno Hemoglobin Ql (U) TRACE-INTACT Abnormal NEGATIVE [facility] Comment on above: Performed By: #### U MICRO, ERUR #### [facility] [address] [place] [address] Dr. Anisa Carreno Ketones Ql (U) Negative Normal NEGATIVE [facility] Comment on above: Performed By: #### U MICRO, ERUR #### [facility] [address] [place] [address] Dr. Anisa Carreno LEUKOCYTES SMALL Abnormal NEGATIVE [facility] Comment on above: Performed By: #### U MICRO, ERUR #### [facility] [address] [place] [address] Dr. Anisa Carreno Nitrite Ql (U) Negative Normal NEGATIVE [facility] Comment on above: Performed By: #### U MICRO, ERUR #### [facility] [address] [address] [address] Anisa Carreno pH (U) 5.5 [pH] Normal 5-[address] [facility] Comment on above: Performed By: #### U MICRO, ERUR #### [facility] [address] [place] [address] Dr. Anisa Carreno SPEC GRAVITY 1.025 Normal 1.005-<=1.025 [facility] Comment on above: Performed By: #### U MICRO, ERUR #### [facility] [address] [place] [address] Dr. Anisa Carreno UA PROTEIN Negative Normal NEGATIVE/ TRACE [facility] Comment on above: Performed By: #### U MICRO, ERUR #### [facility] [address] [address] [address] Anisa Carreno UR MICRO IND INDICATED Normal [facility] Comment on above: Performed By: #### U MICRO, ERUR #### [facility] [address] [address] [address] Anisa Carreno Urobilinogen Qn (U) 0.2 {Jody'U}/dL Normal 0.2 - 1.0 [facility] Comment on above: Performed By: #### U MICRO, ERUR #### [facility] [address] [address] [address] Anisa Carreno URINE MICROSCOPIC ONLYon BACTERIA SMALL Abnormal NONE SEEN [facility] Comment on above: Performed By: #### U MICRO, ERUR #### [facility] [address] [place] [address] Dr. Anisa Carreno Bacteria identified Cx Nom (U) CX ALREADY ORDERED Normal [facility] Comment on above: Performed By: #### U MICRO, ERUR #### [facility] [address] [address] [address] Anisa Carreno CAST NONE SEEN Normal NONE SEEN [facility] Comment on above: Performed By: #### U MICRO, ERUR #### [facility] [address] [address] [address] Anisa Carreno Crystals LM Nom (Urine sed) NONE SEEN Normal NONE SEEN [facility] Comment on above: Performed By: #### U MICRO, ERUR #### [facility] [address] [address] [address] Anisa Carreno Epithelial cells LM Ql (Urine sed) RARE Normal NONE SEEN /RARE [facility] Comment on above: Performed By: #### U MICRO, ERUR #### [facility] [address] [address] [address] Anisa Carreno MUCOUS NONE SEEN Normal NONE SEEN [facility] Comment on above: Performed By: #### U MICRO, ERUR #### [facility] [address] [place] [address] Dr. Anisa Carreno RBC 5-10 Abnormal 0-2 [facility] Comment on above: Performed By: #### U MICRO, ERUR #### [facility] [address] [place] [address] Dr. Anisa Carreno WBC 10-20 Abnormal NONE SEEN [facility] Comment on above: Performed By: #### U MICRO, ERUR #### [facility] [address] [place] [address] Dr. Anisa Carreno CHLAMYDIA/GONOCOCCUS NIDIA (SW AB/URINE/PAPon 06-25-2022 Chlamydia trachomatis, NIDIA Negative Normal Negative [facility] Comment on above: Performed By: #### C T/NGNA #### [facility] [address] [place] [address] Dr. Anisa Carreno Neisseria gonorrhoeae, NIDIA Negative Normal Negative [facility] Comment on above: Performed By: #### C T/NGNA #### [facility] [address] [place] [address] Dr. Anisa Carreno CULTURE URINEon 06-25-2022 CULTURE URINE Isolate 1 Proteus mirabilis 100,000 cfu/mL of ORGANISM 1 Proteus mirabilis ANTIBIOTIC M.I.C RX STATUS Ampicillin <=2 S F Ampicillin/Sulbactam <=2 S F Piperacillin/Tazobactam <=4 S F Cefazolin <=4 S F Ceftazidime <=1 S F Ceftriaxone <=1 S F Ertapenem <=0.5 S F Imipenem 1 S F Amikacin <=2 S F Gentamicin <=1 S F Tobramycin <=1 S F Ciprofloxacin <=0.25 S F Levofloxacin <=0.12 S F Nitrofurantoin 128 R F Trimethoprim/Sulfametho xazole <=20 S F Normal [facility] Comment on above: Performed By: #### U RCX #### [facility] [address] [place] [address] Dr. Anisa Carreno ER URINE PROFILEon 3 Bilirubin Ql (U) Negative Normal NEGATIVE [facility] Comment on above: Performed By: #### U MICRO, ERUR #### [facility] [address] [address] [address] Anisa Carreno Clarity (U) SL CLOUDY Abnormal CLEAR [facility] Comment on above: Performed By: #### U MICRO, ERUR #### [facility] [address] [place] [address] Dr. Anisa Carreno Color (U) LT. YELLOW Normal YELLOW [facility] Comment on above: Performed By: #### U MICRO, ERUR #### [facility] [address] [place] [address] Dr. Anisa Carreno ERUAHD A micrscopic examination will be performed if indicated. Normal [facility] Comment on above: Performed By: #### U MICRO, ERUR #### [facility] [address] [place] [address] Dr. Anisa Carreno Glucose Ql (U) Negative Normal NEGATIVE [facility] Comment on above: Performed By: #### U MICRO, ERUR #### [facility] [address] [place] [address] Dr. Anisa Carreno Hemoglobin Ql (U) TRACE-INTACT Abnormal NEGATIVE [facility] Comment on above: Performed By: #### U MICRO, ERUR #### [facility] [address] [place] [address] Dr. Anisa Crareno Ketones Ql (U) Negative Normal NEGATIVE [facility] Comment on above: Performed By: #### U MICRO, ERUR #### [facility] [address] [place] [address] Dr. Anisa Carreno LEUKOCYTES MODERATE Abnormal NEGATIVE [facility] Comment on above: Performed By: #### U MICRO, ERUR #### [facility] [address] [place] [address] Dr. Anisa Carreno Nitrite Ql (U) Negative Normal NEGATIVE [facility] Comment on above: Performed By: #### U MICRO, ERUR #### [facility] [address] [place] [address] Dr. Anisa Carreno pH (U) 6.5 [pH] Normal 5-[address] [facility] Comment on above: Performed By: #### U MICRO, ERUR #### [facility] [address] [address] [address] Anisa Carreno SPEC GRAVITY 1.010 Normal 1.005-<=1.025 [facility] Comment on above: Performed By: #### U MICRO, ERUR #### [facility] [address] [place] [address] Dr. Anisa Carreno UA PROTEIN Negative Normal NEGATIVE/ TRACE [facility] Comment on above: Performed By: #### U MICRO, ERUR #### [facility] [address] [place] [address] Dr. Anisa Carreno UR MICRO IND INDICATED Normal [facility] Comment on above: Performed By: #### U MICRO, ERUR #### [facility] [address] [place] [address] Dr. Anisa Carreno Urobilinogen Qn (U) 0.2 {Jody'U}/dL Normal 0.2 - 1.0 [facility] Comment on above: Performed By: #### U MICRO, ERUR #### [facility] [address] [place] [address] Dr. Anisa Carreno URINE MICROSCOPIC ONLYon BACTERIA TRACE Abnormal NONE SEEN [facility] Comment on above: Performed By: #### U MICRO, ERUR #### [facility] [address] [place] [address] Dr. Anisa Carreno Bacteria identified Cx Nom (U) INDICATED Normal [facility] Comment on above: Performed By: #### U MICRO, ERUR #### [facility] [address] [place] [address] Dr. Anisa Carreno CAST NONE SEEN Normal NONE SEEN [facility] Comment on above: Performed By: #### U MICRO, ERUR #### [facility] [address] [place] [address] Dr. Anisa Carreno Crystals LM Nom (Urine sed) NONE SEEN Normal NONE SEEN [facility] Comment on above: Performed By: #### U MICRO, ERUR #### [facility] [address] [place] [address] Dr. Anisa Carreno Epithelial cells LM Ql (Urine sed) NONE SEEN Normal NONE SEEN /RARE [facility] Comment on above: Performed By: #### U MICRO, ERUR #### [facility] [address] [place] [address] Dr. Anisa Carreno MUCOUS NONE SEEN Normal NONE SEEN [facility] Comment on above: Performed By: #### U MICRO, ERUR #### [facility] [address] [address] [address] Anisa Carreno RBC 0-2 Normal 0-2 [facility] Comment on above: Performed By: #### U MICRO, ERUR #### [facility] [address] [place] [address] Dr. Anisa Carreno WBC 10-20 Abnormal NONE SEEN [facility] Comment on above: Performed By: #### U MICRO, ERUR #### [facility] [address] [place] [address] Dr. Anisa Carreno CHLAMYDIA/GONOCOCCUS NIDIA (SW AB/URINE/PAPon 04-23-2022 Chlamydia trachomatis, NIDIA Negative Normal Negative [facility] Comment on above: Performed By: #### C T/NGNA #### [facility] [address] [place] [address] Dr. Anisa Carreno Neisseria gonorrhoeae, NIDIA Negative Normal Negative [facility] Comment on above: Performed By: #### C T/NGNA #### [facility] [address] [place] [address] Dr. Anisa Carreno CULTURE URINEon 04-22-2022 CULTURE URINE Isolate 1 Proteus mirabilis >100,000 cfu/mL of ORGANISM 1 Proteus mirabilis ANTIBIOTIC M.I.C RX STATUS Ampicillin <=2 S F Ampicillin/Sulbactam <=2 S F Piperacillin/Tazobactam <=4 S F Cefazolin <=4 S F Ceftazidime <=1 S F Ceftriaxone <=1 S F Ertapenem <=0.5 S F Imipenem 1 S F Amikacin <=2 S F Gentamicin <=1 S F Tobramycin <=1 S F Ciprofloxacin <=0.25 S F Levofloxacin <=0.12 S F Nitrofurantoin 128 R F Trimethoprim/Sulfametho xazole <=20 S F Normal [facility] Comment on above: Performed By: #### U MICRO, ERUR #### [facility] [address] [place] [address] Dr. Anisa Carreno CBC AUTO DIFFon 04-20-2022 BASO # 0.0 103/ul Normal 0.0-0.[address] [facility] Comment on above: Performed By: #### U MICRO, ERUR #### [facility] [address] [place] [address] Dr. Anisa Carreno Basophils/100 WBC (Bld) 0.6 % Normal 0.2-2.0 [facility] Comment on above: Performed By: #### U MICRO, ERUR #### [facility] [address] [place] [address] Dr. Anisa Carreno EO # 0.1 103/ul Normal 0.0-0.7 [facility] Comment on above: Performed By: #### U MICRO, ERUR #### [facility] [address] [place] [address] Dr. Anisa Carreno Eosinophils/100 WBC (Bld) 0.9 % Normal 0.9-7.0 [facility] Comment on above: Performed By: #### U MICRO, ERUR #### [facility] [address] [place] [address] Dr. Anisa Carreno Erythrocyte distribution width (RBC) [Ratio] 12.1 % Normal 11.0-15.[address] [facility] Comment on above: Performed By: #### U MICRO, ERUR #### [facility] [address] [place] [address] Dr. Anisa Carreno Hematocrit (Bld) [Volume fraction] 47.2 % Normal 42.0-54.0 [facility] Comment on above: Performed By: #### U MICRO, ERUR #### [facility] [address] [place] [address] Dr. Anisa Carreno Hemoglobin (Bld) [Mass/Vol] 15.8 g/dL Normal 14.0-18.0 [facility] Comment on above: Performed By: #### U MICRO, ERUR #### [facility] [address] [address] [address] Anisa Carreno IG # 0.02 10e3/ul Normal 0.00-0.[address] [facility] Comment on above: Performed By: #### U MICRO, ERUR #### [facility] [address] [address] [address] Anisa Carreno IG % 0.3 % Normal 0.0-0.[address] [facility] Comment on above: Performed By: #### U MICRO, ERUR #### [facility] [address] [address] [address] Anisa Carreno LYMPH # 1.6 103/ul Normal 1.2-3.[address] [facility] Comment on above: Performed By: #### U MICRO, ERUR #### [facility] [address] [address] [address] Anisa Carreno Lymphocytes/100 WBC (Bld) 24.4 % Normal 20.5-60.[address] [facility] Comment on above: Performed By: #### U MICRO, ERUR #### [facility] [address] [address] [address] Anisa Carreno MANUAL DIFF REQ NO Normal [facility] Comment on above: Performed By: #### U MICRO, ERUR #### [facility] [address] [address] [address] Anisa Carreno MCH (RBC) [Entitic mass] 32.3 pg Normal 25.9-34.[address] [facility] Comment on above: Performed By: #### U MICRO, ERUR #### [facility] [address] [address] [address] Anisa Carreno MCHC (RBC) [Mass/Vol] 33.5 g/dL Normal 29.9-35.[address] [facility] Comment on above: Performed By: #### U MICRO, ERUR #### [facility] [address] [address] [address] Anisa Carreno MCV (RBC) [Entitic vol] 96.5 fL Critically high 80.0-94.[address] [facility] Comment on above: Performed By: #### U MICRO, ERUR #### [facility] [address] [address] [address] Anisa Carreno MONO # 0.5 103/ul Normal 0.3-0.8 [facility] Comment on above: Performed By: #### U MICRO, ERUR #### [facility] [address] [place] [address] Dr. Anisa Carreno Monocytes/100 WBC (Bld) 8.1 % Normal 1.7-12.[address] [facility] Comment on above: Performed By: #### U MICRO, ERUR #### [facility] [address] [place] [address] Dr. Anisa Carreno NEUT # 4.4 103/ul Normal 1.4-6.5 [facility] Comment on above: Performed By: #### U MICRO, ERUR #### [facility] [address] [place] [address] Dr. Anisa Carreno Neutrophils/100 WBC (Bld) 65.7 % Normal 43.0-75.0 [facility] Comment on above: Performed By: #### U MICRO, ERUR #### [facility] [address] [place] [address] Dr. Anisa Carreno Platelet mean volume (Bld) [Entitic vol] 8.8 fL Critically low 9.5-13.[address] [facility] Comment on above: Performed By: #### U MICRO, ERUR #### [facility] [address] [place] [address] Dr. Anisa Carreno PLT 289 103/ul Normal 150-450 [facility] Comment on above: Performed By: #### U MICRO, ERUR #### [facility] [address] [place] [address] Dr. Anisa Carreno RBC 4.89 106/ul Normal 4.70-6.10 [facility] Comment on above: Performed By: #### U MICRO, ERUR #### [facility] [address] [place] [address] Dr. Anisa Carreno WBC 6.7 103/ul Normal 4.0-11.0 [facility] Comment on above: Performed By: #### U MICRO, ERUR #### [facility] [address] [address] [address] Anisa MOHR URINE PROFILEon 3 Bilirubin Ql (U) Negative Normal NEGATIVE [facility] Comment on above: Performed By: #### U MICRO, ERUR #### [facility] [address] [place] [address] Dr. Anisa Carreno Clarity (U) CLEAR Normal CLEAR [facility] Comment on above: Performed By: #### U MICRO, ERUR #### [facility] [address] [address] [address] Anisa Carreno Color (U) LT. YELLOW Normal YELLOW [facility] Comment on above: Performed By: #### U MICRO, ERUR #### [facility] [address] [place] [address] Dr. Anisa PEREZ A micrscopic examination will be performed if indicated. Normal [facility] Comment on above: Performed By: #### U MICRO, ERUR #### [facility] [address] [address] [address] Anisa Carreno Glucose Ql (U) Negative Normal NEGATIVE [facility] Comment on above: Performed By: #### U MICRO, ERUR #### [facility] [address] [place] [address] Dr. Anisa Carreno Hemoglobin Ql (U) TRACE-INTACT Abnormal NEGATIVE [facility] Comment on above: Performed By: #### U MICRO, ERUR #### [facility] [address] [address] [address] Anisa Carreno Ketones Ql (U) Negative Normal NEGATIVE [facility] Comment on above: Performed By: #### U MICRO, ERUR #### [facility] [address] [place] [address] Dr. Anisa Carreno LEUKOCYTES SMALL Abnormal NEGATIVE [facility] Comment on above: Performed By: #### U MICRO, ERUR #### [facility] [address] [address] [address] Anisa Carreno Nitrite Ql (U) Negative Normal NEGATIVE [facility] Comment on above: Performed By: #### U MICRO, ERUR #### [facility] [address] [address] [address] Anisa Carreno pH (U) 6.0 [pH] Normal 5-[address] [facility] Comment on above: Performed By: #### U MICRO, ERUR #### [facility] [address] [place] [address] Dr. Anisa Carreno SPEC GRAVITY 1.015 Normal 1.005-<=1.025 [facility] Comment on above: Performed By: #### U MICRO, ERUR #### [facility] [address] [place] [address] Dr. Anisa Carreno UA PROTEIN Negative Normal NEGATIVE/ TRACE [facility] Comment on above: Performed By: #### U MICRO, ERUR #### [facility] [address] [place] [address] Dr. Anisa Carreno UR MICRO IND INDICATED Normal [facility] Comment on above: Performed By: #### U MICRO, ERUR #### [facility] [address] [place] [address] Dr. Anisa Carreno Urobilinogen Qn (U) 0.2 {Jody'U}/dL Normal 0.2 - 1.[address] [facility] Comment on above: Performed By: #### U MICRO, ERUR #### [facility] [address] [place] [address] Dr. Anisa Carreno LIPASEon 04-20-2022 Lipase [Catalytic activity/Vol] 166.0 U/L Normal 73.0-393.[address] [facility] Comment on above: Performed By: #### L IPA, CMP #### [facility] [address] [place] [address] Dr. Anisa Carreno PROF 14(COMP METB)on 023 Albumin [Mass/Vol] 4.4 g/dL Normal 3.4-5.[address] [facility] Comment on above: Performed By: #### L IPA, CMP #### [facility] [address] [place] [address] Dr. Anisa Carreno Albumin/Globulin [Mass ratio] 1.3 {ratio} Normal [facility] Comment on above: Performed By: #### L IPA, CMP #### [facility] [address] [place] [address] Dr. Anisa Carreno ALP [Catalytic activity/Vol] 63 U/L Normal 46-[address] [facility] Comment on above: Performed By: #### L IPA, CMP #### [facility] [address] [address] [address] Anisa Carreno ALT [Catalytic activity/Vol] 20 U/L Normal 16-63 [facility] [facility] Comment on above: Performed By: #### L IPA, CMP #### [facility] [address] [place] [address] Dr. Anisa Carreno Anion gap [Moles/Vol] 13.0 mmol/L Normal [facility] Comment on above: Performed By: #### L IPA, CMP #### [facility] [address] [place] [address] Dr. Anisa Carreno AST [Catalytic activity/Vol] 10 U/L Critically low 15-[address] [facility] Comment on above: Performed By: #### L IPA, CMP #### [facility] [address] [place] [address] Dr. Anisa Carreno Bilirubin [Mass/Vol] 0.7 mg/dL Normal 0.2-1.[address] [facility] Comment on above: Performed By: #### L IPA, CMP #### [facility] [address] [place] [address] Dr. Anisa Carreno Calcium [Mass/Vol] 9.4 mg/dL Normal 8.5-10.[address] [facility] Comment on above: Performed By: #### L IPA, CMP #### [facility] [address] [place] [address] Dr. Anisa Carreno Chloride [Moles/Vol] 102 mmol/L Normal 98-[address] [facility] Comment on above: Performed By: #### L IPA, CMP #### [facility] [address] [place] [address] Dr. Anisa Carreno CO2 [Moles/Vol] 29.6 mmol/L Normal 21.0-32.[address] [facility] Comment on above: Performed By: #### L IPA, CMP #### [facility] [address] [address] [address] Anisa Carreno Creatinine [Mass/Vol] 0.94 mg/dL Normal 0.70-1.30 [facility] Comment on above: Performed By: #### L IPA, CMP #### [facility] [address] [address] [address] Anisa Carreno EGFR-AF AUSTRIAN >60 Normal >=[address] [facility] Comment on above: Performed By: #### L IPA, CMP #### [facility] [address] [address] [address] Anisa Carreno EGFR-NON AF AUSTRIAN >60 Normal >=60 [facility] Comment on above: Performed By: #### L IPA, CMP #### [facility] [address] [place] [address] Dr. Anisa Carreno Globulin (S) [Mass/Vol] 3.3 g/dL Normal [facility] Comment on above: Performed By: #### L IPA, CMP #### [facility] [address] [place] [address] Dr. Anisa Carreno Glucose [Mass/Vol] 101 mg/dL Normal 74-[address] [facility] Comment on above: Performed By: #### L IPA, CMP #### [facility] [address] [place] [address] Dr. Anisa Carreno Potassium [Moles/Vol] 4.6 mmol/L Normal 3.5-5.1 [facility] Comment on above: Performed By: #### L IPA, CMP #### [facility] [address] [address] [address] Anisa Carreno Protein [Mass/Vol] 7.7 g/dL Normal 6.4-8.2 [facility] Comment on above: Performed By: #### L IPA, CMP #### [facility] [address] [place] [address] Dr. Anisa Carreno Sodium [Moles/Vol] 140 mmol/L Normal 136-145 [facility] Comment on above: Performed By: #### L IPA, CMP #### [facility] [address] [place] [address] Dr. Anisa Carreno Urea nitrogen [Mass/Vol] 16.0 mg/dL Normal 7.0-18.[address] [facility] Comment on above: Performed By: #### L IPA, CMP #### [facility] [address] [place] [address] Dr. Anisa Carreno Urea nitrogen/Creatini ne [Mass ratio] 17.0 mg/mg Normal [facility] Comment on above: Performed By: #### L IPA, CMP #### [facility] [address] [place] [address] Dr. Anisa Carreno PROTIMEon 04-20-2022 INR Coag (PPP) [Relative time] 0.94 {INR} Normal [facility] Comment on above: Performed By: #### P T, PTT #### [facility] [address] [place] [address] Dr. Anisa Carreno INR GUIDELINES SEE BELOW Normal [facility] Comment on above: Result Comment: SAURABH RED INR: 2.0 - 3.0 CONDITIONS NOT LISTED BELOW 2.5 - 3.5 FOR PROSTHETIC HEART VALVE REPLACEMENT 2.5 - 3.5 RECURRENT THROMBOSIS Performed By: #### P T, PTT #### [facility] [address] [place] [address] Dr. Anisa Carreno PT Coag (PPP) [Time] 10.0 s Normal 9.0-11.6 [facility] Comment on above: Performed By: #### P T, PTT #### [facility] [address] [place] [address] Dr. Anisa Carreno PTTon 04-20-2022 aPTT Coag (Bld) [Time] 29.6 s Normal 22.3-36.2 [facility] Comment on above: Performed By: #### P T, PTT #### [facility] [address] [place] [address] Dr. Anisa Carreno URINE MICROSCOPIC ONLYon BACTERIA SMALL Abnormal NONE SEEN [facility] Comment on above: Performed By: #### U MICRO, ERUR #### [facility] [address] [place] [address] Dr. Anisa Carreno Bacteria identified Cx Nom (U) INDICATED Normal [facility] Comment on above: Performed By: #### U MICRO, ERUR #### [facility] [address] [place] [address] Dr. Anisa Carreno CAST NONE SEEN Normal NONE SEEN [facility] Comment on above: Performed By: #### U MICRO, ERUR #### [facility] [address] [place] [address] Dr. Anisa Carreno Crystals LM Nom (Urine sed) NONE SEEN Normal NONE SEEN [facility] Comment on above: Performed By: #### U MICRO, ERUR #### [facility] [address] [place] [address] Dr. Anisa Carreno Epithelial cells LM Ql (Urine sed) FEW Abnormal NONE SEEN /RARE [facility] Comment on above: Performed By: #### U MICRO, ERUR #### [facility] [address] [place] [address] Dr. Anisa Carreno MUCOUS NONE SEEN Normal NONE SEEN [facility] Comment on above: Performed By: #### U MICRO, ERUR #### [facility] [address] [place] [address] Dr. Anisa Carreno RBC 2-5 Abnormal 0-2 [facility] Comment on above: Performed By: #### U MICRO, ERUR #### [facility] [address] [place] [address] Dr. Anisa Carreno WBC 20-50 Abnormal NONE SEEN [facility] Comment on above: Performed By: #### U MICRO, ERUR #### [facility] [address] [place] [address] Dr. Anisa Carreno Chlamydia/GC/Trich NAAon Chlamydia Trachomotis, NIDIA Negative Normal Negative [facility] Comment on above: Performed By: #### G CCHLAMTRI #### [facility] , Neisseria Gonorrhoeae, NIDIA Negative Normal Negative [facility] Comment on above: Performed By: #### G CCHLAMTRI #### [facility] , Trichomonas NIDIA Negative Normal Negative [facility] Comment on above: Result Comment: Perf ormed at: =G - [facility] [address] [place] [id number] Transportation Worker: Gail Aguilar MD, Phone: [phone] PERFORMED BY: [facility] [place] [address] PATHOLOGIST MANUFACTURING COST ESTIMATOR MARSHA HUGGINS M.D. Performed By: #### G [facility] #### [facility] , SARS-CoV-2 (COVID-19) RNA NA A+probe Ql (Resp)on 11-15-2021 SARS-CoV-2 (COVID-19) RNA NIDIA+probe Ql (Unsp spec) Negative [employer] Other CNOVon 06-07-2018 CNOV Office Visit (GMIT) MARIAM CLEVELAND ([id number]) 1985 M Date Time Provider Department 06/07/18 9:30 AM REBECCA HAWKINS During your visit today, we recorded the following information about you: Rebecca Hawkins MD 06/07/2018 11:10 AM Signed [facility] CONNECTIVE TISSUE DISORDERS CLINIC Patient: Mariam [facility] # [id number] Date of clinic visit: June 07, 2018 PRESENTING PROBLEM: Mariam Cleveland is a 32 year old old man who was comes to Genetics Clinic for evaluation for a possible connective tissue disorder. The [facility] EMR was reviewed prior to the visit including available clinic notes, physician consultations, laboratory tests, imaging reports, cardiac studies, and other investigations and evaluations. Briefly, Mariam Cleveland first came to medical attention due to a long standing history of joint and muscle pain as long as he can remember. He was seen by his PCP and concerns were raised for Marfan syndrome. He was referred to genetics for further evaluation Relevant connective tissue evaluations include: Cardiology: - He had an ECHO in Apr 2018 which was normal. - he has a history of abnormal heart rate and feeling of blacking out after he drinks coffee or after exercise. - He has passed out in the past. He states he was in bad shape mentally and physically. - He has had an EKG in the past and he reports this as normal. We do not have copies of this. - He states he has feeling of triple beating He has never seen a catholic priest. Ophthalmology: - he wears glasses for mild myopia -1.25 - last eye exam 1-2 years ago. He states this was a full exam. No mention of abnormal lens, etc. - he has a sister with macular degeneration Orthopedics: - He has dislocated almost every joint he can think of - He has not seen physicians for this but he has seen chiropractor - No history of fractures - He has a floating rib and experienced lung pain. He read online that this could be a pneumothorax but he never went in for medical attention and it resolved on its own Other: - He has multiple food intolerances and GI issues that have resolved with elimination - he reports increased skin elasticity - He has normal scars - No easy bruising PAST MEDICAL HISTORY: No past medical history on file. MEDICATIONS: None ALLERGIES: ALLERGIES Allergies not on file SOCIAL HISTORY: Social History Socioeconomic History Marital status: Unknown Spouse name: Not on file Number of children: Not on file Years of education: Not on file Highest education level: Not on file Social Needs Financial resource strain: Not on file Food insecurity - worry: Not on file Food insecurity - inability: Not on file Transportation needs - medical: Not on file Transportation needs - non-medical: Not on file Occupational History Not on file Tobacco Use Smoking status: Not on file Substance and Sexual Activity Alcohol use: Not on file Drug use: Not on file Sexual activity: Not on file Other Topics Concerns: Not on file Social History Narrative Not on file He hasn't worked for years 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 FAMILY HISTORY: Please see scanned documents for details. Dad is 6'2 He has a sister who is 5'11 . No history of sudden or known aortic disease. REVIEW OF SYSTEMS: GENERAL: Normal stature for family EYES: as per HPI EARS:No concerns or reported abnormalities ORAL CAVITY: reports high palate CARDIAC:as per HPI RESP:pneumothorax, unknown GI: as per HPI MSI: No concerns for abnormal foot arches, club feet, hammer toes, pectus abnormality, scoliosis, INTEGUMENT: increased elasticity, he thinks he may have hernias NEURO: everything hurts chronic pain improved by chiropractor and diet. All other systems were reviewed and are negative unless otherwise specified. PHYSICAL EXAM: *Please note upper segment lower segment ratios are not calculated due to the inability to objectively assess. General: well appearing, no acute distress HEENT: normocephalic, extraocular muscles intact, pupils are equal, round, and reactive to light, sclerae are non-injected, non-icteric, nondysmoprhic, high palate, dental decay Cardiovascular: RRR, no murmurs, normal perfusion RESP: normal respiratory motion Abdomen: soft, nontender, without palpable masses or organomegaly Neurologic: normal gait, strength and muscle tone SKIN: mildly increased elasticity with normal scars, no evidence of easy bruising SKELETAL EXAM: Facial features: characteristic facial features absent High Arched Palate: Yes Bifid Uvula: No Dental crowding: Yes Arachnodactyly: No Pectus Excavatum: no Pectus Carinatum: no Scoliosis: no Joint Laxity: no Beighton score= 1/9 Pes Planus: no Asthenia: No Reduced Extension of Elbows (<170): No Wrist Sign: No Thumb Sign: No MARFAN ASSESSMENT: REVISED GHENT CRITERIA FOR MARFAN SYNDROME: Scoring of systemic features: - Wrist AND thumb sign- 3 (wrist OR thumb sign- 1) - Pectus carinatum- 2 (Pectus excavatum- 1, chest asymmetry- 1) - Hindfoot deformity- 2 (Plain pes planus- 1) - Pneumothorax- 2 - Dural ectasia- 2 - Protrusio acetabuli- 2 - Reduced US/LS AND increased arm/height AND no severe scoliosis- 1 - Scoliosis or thoracolumbar kyphosis- 1 - Reduced elbow extension- 1 - Facial features (3/5)-1 (dolichocephaly, enophthalmos, downslanting palpebral - fissures, malar hypoplasia, retrognathia) - Skin striae- 1 - Myopia > 3- 1 - MVP- 1 Total (max 20)*= 0/20 *>/=7 indicates systemic involvement In the absence of family history: (1) aortic diameter at the sinuses of Valsalva (Z>/=2.0) AND ectopia lentis= Marfan syndrome* (2)aortic diameter at the sinuses of Valsalva (Z>/=2.0) AND FBN1 mutation = Marfan syndrome (3)aortic diameter at the sinuses of Valsalva (Z>/=2.0) AND systemic features (>/=7 points)= Marfan syndrome* (4) ectopia lentis and FBN1 mutation with known association with aortic dilation= Marfan syndrome In the presence of family history: (5) ectopia lentis AND family history of Marfan syndrome (as defined above)= Marfan syndrome (6) systemic features (>7 points) AND family history of Marfan syndrome (as defined above)= Marfan syndrome* (7) aortic diameter at the sinuses of Valsalva (Z>/=2.0 above 20 years old, >/=3 below 20 years) AND family history of Marfan Syndrome (as defined above) = Marfan syndrome* Note: -Ectopia lentis with or without systemic features and with an FBN1 mutation not known with aortic involvement or no FBN1= ectopia lentis syndrome -aortic diameter at the sinuses of Valsalva (Z<2.0) AND systemic features (<5) without ectopia lentis = MASS (myopia, MVP, borderline, non progressive aortic root dilation, skeletal findings and striae) -MVP AND aortic diameter at the sinuses of Valsalva (Z<2.0) AND systemic features (<5) without ectopia lentis= MVP syndrome *Caveat: Without discriminating features of Sphrintzen Ruelas, Loeys Vandana or vascular Zaida Danlos syndrome AND after TGFBR1/2, biochemistry, COL3A1 if indicated. Reprinted from Aron, et al 2010. Major diagnostic criteria should all be met to establish a diagnosis of EDS, hypermobility type/ Connective tissue disorder NOS: ? Joint hypermobility with score of five or more on the nine-point: ABSENT ? Soft skin with normal or only slightly increased extensibility: PRESENT ? Soft skin: PRESENT ? Skin hyperextensibility greater than 1-1.5 cm assesed on forearm: ABSENT ? Absence of fragility or other significant skin or soft tissue abnormalities, which are suggestive of other types of EDS: ? Spontaneous or easily induced skin cuts or tears ABSENT ? Spontaneous or easily induced tears or ruptures of tendons, ligaments, vessels, or other internal organs ABSENT ? Surgical complications, such as vessel rupture or sutures tearing through tissues and failing to hold ABSENT ? Spontaneous wound dehiscence ABSENT ? Recurrent or incisional hernias ABSENT ? Significant skin hyperextensibility (>1.5 cm on the volar surface of the forearm) ABSENT ? Thin, translucent skin ABSENT ? Atrophic scars ABSENT ? Molluscoid pseudotumors ABSENT Minor diagnostic criteria are supportive of but not sufficient to establish a diagnosis of EDS, hypermobility type: ? Positive family history of EDS, hypermobility type (or family history of joint laxity), without significant skin or soft tissue fragility, in a pattern consistent with autosomal dominant inheritance ABSENT ? Recurrent joint dislocations or subluxations PRESENT ? Chronic joint, limb, and/or back pain PRESENT ? Easy bruising ABSENT ? Functional bowel disorders (functional gastritis, irritable bowel syndrome) Unknown ? Neurally-mediated hypotension or postural orthostatic tachycardia Unknown ? High, narrow palate PRESENT ? Dental crowding PRESENT Vascular EDS ASSESSMENT: -Two major diagnostic criteria has a high specificity for EDS, vascular type; -One or more minor criteria supports the diagnosis of the vascular type of EDS but is not sufficient to establish the diagnosis. MAJOR CRITERIA: Arterial rupture: No Intestinal rupture: No Uterine rupture during : NA Family history of the vascular type of EDS: No MINOR CRITERIA: Thin, translucent skin: No Easy bruising: No Facial appearance (thin lips and philtrum, small chin, thin nose, large eyes): No Acrogeria: No Hypermobility of small joints: No Tendon/muscle rupture: No Early-onset varicose veins: No Arteriovenous carotid-cavernous sinus fistula: Unknown Pneumothorax/pneumohemo thorax: Unknown Chronic joint subluxations/dislocatio ns: Yes Congenital dislocation of the hips: No Talipes equinovarus (clubfoot): No Gingival recession: No IMPRESSION: Mariam Cleveland is a 32 year old male who does not meet criteria required for the clinical diagnosis of Marfan syndrome or other connective tissue disorder. He mentioned that he has been unemployed for many years and is looking to receive disability. We do not assess for disability in our clinic and recommend that he make an appointment with [facility]. In addition, he provides a vague history of near-syncope. It is under very vague circumstances. He may benefit from a cardiology evaluation to better assess. RECOMMENDATIONS: No evidence of a connective tissue disorder No genetic testing is indicated Plan as above The majority time, >50%, was spent on counseling and coordination of care with the patient and/or family member. The approximate physician face to face time was 30 minutes. Rebecca Hawkins MD [facility] [place] [address]/ [place] [id number] [facility]/[phone] or appointments office fax Referring Provider: ROBERTO KINSEY [[id number]] Allergies As of Date: 06/07/2018 (Not on File) Date Reviewed: Never Reviewed Visit Diagnosis:Chronic pain syndrome [G89.4] Problem List As Of Date: 06/07/2018 (None) Encounter Status:Closed by REBECCA HAWKINS MD on 06/07/18 Normal [facility] CNOV Office Visit (GMIT) MARIAM CLEVELAND ([id number]) 1985 M Date Time Provider Department 06/07/18 9:00 AM [facility] During your visit today, we recorded the following information about you: Valeria Gutierrez CGC 07/02/2018 1:45 PM Signed GENETIC COUNSELING CONSULTATION Mariam Cleveland is a 32 year old male with a history of joint pain and hypermobility referred for genetic counseling by Dr. Roberto Kinsey. He is unaccompanied to his appointment today. The patient was seen in conjunction with Dr Rebecca Hawkins, Clinical [facility]. Please see her clinic note for additional information, including physical exam. HISTORY OF PRESENT ILLNESS: Mariam Cleveland raised concern for possible Marfan syndrome with his primary care doctor in April 2017 due to history of Marfanoid habitus, hypermobility, and poor exercise tolerance. Today he also brings up concern for possible Zaida Danlos syndrome. He recalls first hearing about Marfan/EDS when a nurse brought up possibility to him. He reports longstanding issues with his joints including generalized hypermobility and subluxations. He has good success with treatment through chiropractor. He has had issues with chronic pain involving his nerves, bones, joints, and muscles since his 20s. He has fatigue. He has allergies/sensitivites to multiple foods including corn, wheat, eggs, dairy, some nuts. His main symptom is GI. His PCP ordered echocardiogram which was reassuring. He reports different sensation of heartbeat when he overexerts and wonders if this could represent MVP. He will start to black out with exertion. Mariam Cleveland was referred to genetics for further evaluation of connective tissue disorder. Cardiology evaluations: ECHO 05/04/2017 [facility] Aortic dilatation: No, but aortic dimensions not provided on OSH echo report Mitral valve prolapse: No Arterial tortuosity: Unknown Dural ectasia: Unknown Last eye exam: Unsure Checkerer Hand: Unknown - glasses since childhood - myopia -1.25 - dilated eye exams WNL in the past Surgical history: No past surgical history on file. 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 Age diagnosed 30s, in hands; symptoms within the past year. Improved with topicals. Hypermobility: Yes Dislocations: Multiple subluxations, twisted vertebrae , believes most of his joints have been affected at one point. Able to self correct or utilizes chiropractor. Hernias: Umbilical hernia, currently untreated. Has area in L inguinal region that he thinks may be weak Striae: No Soft/Velvety skin: Yes Abnormal scars: No Thin skin: No Hyperextensible skin: No Livedo reticularis: No Easy bruising: No Varicose veins: No Pes planus: High arches, was a toe walker in childhood Food or environmental allergies: Involvement, food and seasonal/environmental Gastrointestinal inflammatory disease: GI ulcers, able to improve with diet changes, supplements Hollow organs such as intestine, uterus and spleen prone to rupture: No SOCIAL HISTORY: Mariam Cleveland lives in [place], [place]. He does not have children. FAMILY HISTORY: The full family history will be available under scanned documents in the electronic medical record. Significant diagnoses are listed below: Sister, 37, 5'11 , macular degeneration, endometriosis, myopia; four children, her daughter wore helmet due to ?plagiocephaly Mother, 58, 5'4 , ortho/spine issues with multiple surgeries, DDD and herniations of discs Maternal aunt, healthy Maternal uncle, healthy Maternal grandfather, 80, knee replacements Maternal grandmother, 80, several of her relatives of CHF in her 60s Father, 58, 6'2 , healthy, knee injuries as a teen, lanky build, similar skin texture Paternal uncle x2, tall stature, healthy Paternal aunt, tall stature, healthy Paternal grandfather, at 78, ?liver v kidney failure, overweight, diabetes Paternal grandmother, at 75, cancer, diabetes Patient's maternal ancestors are of [place], [place], and [place] descent, and paternal ancestors are of [place] and [place] descent. The remainder of the family history is negative for aneurysms, sudden , early-onset stroke/NH, known genetic disease, defects, multiple miscarriages or stillbirths, infant , developmental delay, mental retardation and consanguinity. IMPRESSION AND GENETIC COUNSELING: Mariam Cleveland is a 32 year old male with a history of joint pain, hypermobility, Marfanoid habitus. His family history is significant for tall stature in his sister, father. He had echocardiogram that did not show mitral valve or aortic disease. We briefly discussed the etiology of connective tissue disorders, which encompasses a group of conditions that can affect multiple parts of the body, such as the skeletal system (such as joint hypermobility, scoliosis, chest wall defects), skin (such as abnormal scarring, increased extensibility), eyes (such as myopia), and cardiovascular system (such as aortic dilation or aneurysm). There are multiple genetic syndromes that fall into the category of connective tissue disorders. For some of these conditions, such as Marfan syndrome and the vascular type of Zaida Danlos syndrome, the genetics of these disorders is well understood and clinical genetic testing is available. For other disorders, such as the hypermobile type of EDS, the genetic cause is not yet known. We reviewed the process of the genetics evaluation. Consideration of genetic testing or further clinical evaluations will be based upon his physical examination findings. Mariam Cleveland was evaluated by Dr. Rebecca Hawkins. Please see her note for additional details. Briefly, Mariam Cleveland's exam and history were not consistent with Marfan syndrome, Zaida Danlos syndrome, or other known genetic connective tissue disorder. The patient was seen for a total of 30 minutes in [id number] counseling. This plan is being carried out under oversight of Dr. Rebecca Hawkins, Clinical Machine Sander. This note is available to the patient through [employer] and will be sent to the referring provider through [facility] or the [place] Mail as necessary. Valeria Gutierrez MS, [facility], Licensed Genetic Counselor [facility] CC: Dr. Rebecca Wooten [facility] CC: Mariam Cleveland [address] [facility] [address] Roberto Kinsey DO [address] [facility] [address] Referring Provider: ROBERTO KINSEY [[id number]] Allergies As of Date: 06/07/2018 (Not on File) Date Reviewed: Never Reviewed Primary Visit Diagnosis:Chronic pain syndrome [G89.4] Problem List As Of Date: 06/07/2018 (None) Encounter Status:Closed by VALERIA GUTIERREZ CGC on 07/02/18 [facility] PROGRESSon 06-07-2018 Protein mass conc HNO ID: [id number] Author: Rebecca Hawkins Service: ? Author Type: Physician Type: Progress Notes Filed: 06/07/2018 11:10 AM Note Text: MEDICAL GENETICS CLINIC CONNECTIVE TISSUE DISORDERS CLINIC Patient: Mariam Cleveland Clinic # [id number] Date of clinic visit: June 07, 2018 PRESENTING PROBLEM: Mariam Cleveland is a 32 year old old man who was comes to Genetics Clinic for evaluation for a possible connective tissue disorder. The [facility] EMR was reviewed prior to the visit including available clinic notes, physician consultations, laboratory tests, imaging reports, cardiac studies, and other investigations and evaluations. Briefly, Mariam Cleveland first came to medical attention due to a long standing history of joint and muscle pain as long as he can remember. He was seen by his PCP and concerns were raised for Marfan syndrome. He was referred to genetics for further evaluation Relevant connective tissue evaluations include: Cardiology: - He had an ECHO in Apr 2018 which was normal. - he has a history of abnormal heart rate and feeling of blacking out after he drinks coffee or after exercise. - He has passed out in the past. He states he was in bad shape mentally and physically. - He has had an EKG in the past and he reports this as normal. We do not have copies of this. - He states he has feeling of triple beating He has never seen a catholic priest. Ophthalmology: - he wears glasses for mild myopia -1.25 - last eye exam 1-2 years ago. He states this was a full exam. No mention of abnormal lens, etc. - he has a sister with macular degeneration Orthopedics: - He has dislocated almost every joint he can think of - He has not seen physicians for this but he has seen chiropractor - No history of fractures - He has a floating rib and experienced lung pain. He read online that this could be a pneumothorax but he never went in for medical attention and it resolved on its own Other: - He has multiple food intolerances and GI issues that have resolved with elimination - he reports increased skin elasticity - He has normal scars - No easy bruising PAST MEDICAL HISTORY: No past medical history on file. MEDICATIONS: None ALLERGIES: ALLERGIES Allergies not on file SOCIAL HISTORY: Social History Socioeconomic History Marital status: Unknown Spouse name: Not on file Number of children: Not on file Years of education: Not on file Highest education level: Not on file Social Needs Financial resource strain: Not on file Food insecurity - worry: Not on file Food insecurity - inability: Not on file Transportation needs - medical: Not on file Transportation needs - non-medical: Not on file Occupational History Not on file Tobacco Use Smoking status: Not on file Substance and Sexual Activity Alcohol use: Not on file Drug use: Not on file Sexual activity: Not on file Other Topics Concerns: Not on file Social History Narrative Not on file He hasn't worked for years 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 FAMILY HISTORY: Please see scanned documents for details. Dad is 6'2 He has a sister who is 5'11 . No history of sudden or known aortic disease. REVIEW OF SYSTEMS: GENERAL: Normal stature for family EYES: as per HPI EARS:No concerns or reported abnormalities ORAL CAVITY: reports high palate CARDIAC:as per HPI RESP:pneumothorax, unknown GI: as per HPI MSI: No concerns for abnormal foot arches, club feet, hammer toes, pectus abnormality, scoliosis, INTEGUMENT: increased elasticity, he thinks he may have hernias NEURO: everything hurts chronic pain improved by chiropractor and diet. All other systems were reviewed and are negative unless otherwise specified. PHYSICAL EXAM: *Please note upper segment lower segment ratios are not calculated due to the inability to objectively assess. General: well appearing, no acute distress HEENT: normocephalic, extraocular muscles intact, pupils are equal, round, and reactive to light, sclerae are non-injected, non-icteric, nondysmoprhic, high palate, dental decay Cardiovascular: RRR, no murmurs, normal perfusion RESP: normal respiratory motion Abdomen: soft, nontender, without palpable masses or organomegaly Neurologic: normal gait, strength and muscle tone SKIN: mildly increased elasticity with normal scars, no evidence of easy bruising SKELETAL EXAM: Facial features: characteristic facial features absent High Arched Palate: Yes Bifid Uvula: No Dental crowding: Yes Arachnodactyly: No Pectus Excavatum: no Pectus Carinatum: no Scoliosis: no Joint Laxity: no Beighton score= 1/9 Pes Planus: no Asthenia: No Reduced Extension of Elbows (<170): No Wrist Sign: No Thumb Sign: No MARFAN ASSESSMENT: REVISED GHENT CRITERIA FOR MARFAN SYNDROME: Scoring of systemic features: - Wrist AND thumb sign- 3 (wrist OR thumb sign- 1) - Pectus carinatum- 2 (Pectus excavatum- 1, chest asymmetry- 1) - Hindfoot deformity- 2 (Plain pes planus- 1) - Pneumothorax- 2 - Dural ectasia- 2 - Protrusio acetabuli- 2 - Reduced US/LS AND increased arm/height AND no severe scoliosis- 1 - Scoliosis or thoracolumbar kyphosis- 1 - Reduced elbow extension- 1 - Facial features (3/5)-1 (dolichocephaly, enophthalmos, downslanting palpebral - fissures, malar hypoplasia, retrognathia) - Skin striae- 1 - Myopia > 3- 1 - MVP- 1 Total (max 20)*= 0/20 *>/=7 indicates systemic involvement In the absence of family history: (1) aortic diameter at the sinuses of Valsalva (Z>/=2.0) AND ectopia lentis= Marfan syndrome* (2)aortic diameter at the sinuses of Valsalva (Z>/=2.0) AND FBN1 mutation = Marfan syndrome (3)aortic diameter at the sinuses of Valsalva (Z>/=2.0) AND systemic features (>/=7 points)= Marfan syndrome* (4) ectopia lentis and FBN1 mutation with known association with aortic dilation= Marfan syndrome In the presence of family history: (5) ectopia lentis AND family history of Marfan syndrome (as defined above)= Marfan syndrome (6) systemic features (>7 points) AND family history of Marfan syndrome (as defined above)= Marfan syndrome* (7) aortic diameter at the sinuses of Valsalva (Z>/=2.0 above 20 years old, >/=3 below 20 years) AND family history of Marfan Syndrome (as defined above) = Marfan syndrome* Note: -Ectopia lentis with or without systemic features and with an FBN1 mutation not known with aortic involvement or no FBN1= ectopia lentis syndrome -aortic diameter at the sinuses of Valsalva (Z<2.0) AND systemic features (<5) without ectopia lentis = MASS (myopia, MVP, borderline, non progressive aortic root dilation, skeletal findings and striae) -MVP AND aortic diameter at the sinuses of Valsalva (Z<2.0) AND systemic features (<5) without ectopia lentis= MVP syndrome *Caveat: Without discriminating features of Sphrintzen Ruelas, Loeys Vandana or vascular Zaida Danlos syndrome AND after TGFBR1/2, biochemistry, COL3A1 if indicated. Reprinted from Aron et al 2010. Major diagnostic criteria should all be met to establish a diagnosis of EDS, hypermobility type/ Connective tissue disorder NOS: ? Joint hypermobility with score of five or more on the nine-point: ABSENT ? Soft skin with normal or only slightly increased extensibility: PRESENT ? Soft skin: PRESENT ? Skin hyperextensibility greater than 1-1.5 cm assesed on forearm: ABSENT ? Absence of fragility or other significant skin or soft tissue abnormalities, which are suggestive of other types of EDS: ? Spontaneous or easily induced skin cuts or tears ABSENT ? Spontaneous or easily induced tears or ruptures of tendons, ligaments, vessels, or other internal organs ABSENT ? Surgical complications, such as vessel rupture or sutures tearing through tissues and failing to hold ABSENT ? Spontaneous wound dehiscence ABSENT ? Recurrent or incisional hernias ABSENT ? Significant skin hyperextensibility (>1.5 cm on the volar surface of the forearm) ABSENT ? Thin, translucent skin ABSENT ? Atrophic scars ABSENT ? Molluscoid pseudotumors ABSENT Minor diagnostic criteria are supportive of but not sufficient to establish a diagnosis of EDS, hypermobility type: ? Positive family history of EDS, hypermobility type (or family history of joint laxity), without significant skin or soft tissue fragility, in a pattern consistent with autosomal dominant inheritance ABSENT ? Recurrent joint dislocations or subluxations PRESENT ? Chronic joint, limb, and/or back pain PRESENT ? Easy bruising ABSENT ? Functional bowel disorders (functional gastritis, irritable bowel syndrome) Unknown ? Neurally-mediated hypotension or postural orthostatic tachycardia Unknown ? High, narrow palate PRESENT ? Dental crowding PRESENT Vascular EDS ASSESSMENT: -Two major diagnostic criteria has a high specificity for EDS, vascular type; -One or more minor criteria supports the diagnosis of the vascular type of EDS but is not sufficient to establish the diagnosis. MAJOR CRITERIA: Arterial rupture: No Intestinal rupture: No Uterine rupture during : NA Family history of the vascular type of EDS: No MINOR CRITERIA: Thin, translucent skin: No Easy bruising: No Facial appearance (thin lips and philtrum, small chin, thin nose, large eyes): No Acrogeria: No Hypermobility of small joints: No Tendon/muscle rupture: No Early-onset varicose veins: No Arteriovenous carotid-cavernous sinus fistula: Unknown Pneumothorax/pneumohemo thorax: Unknown Chronic joint subluxations/dislocatio ns: Yes Congenital dislocation of the hips: No Talipes equinovarus (clubfoot): No Gingival recession: No IMPRESSION: Mariam Cleveland is a 32 year old male who does not meet criteria required for the clinical diagnosis of Marfan syndrome or other connective tissue disorder. He mentioned that he has been unemployed for many years and is looking to receive disability. We do not assess for disability in our clinic and recommend that he make an appointment with [facility]. In addition, he provides a vague history of near-syncope. It is under very vague circumstances. He may benefit from a cardiology evaluation to better assess. RECOMMENDATIONS: No evidence of a connective tissue disorder No genetic testing is indicated Plan as above The majority time, >50%, was spent on counseling and coordination of care with the patient and/or family member. The approximate physician face to face time was 30 minutes. Rebecca Hawkins MD [facility] [place] [facility] [address]/ [place] [id number] [facility]/[phone] or appointments office fax Normal [facility] Protein mass conc HNO ID: [id number] Author: Valeria Gutierrez Service: ? Author Type: Genetic Counselor Type: Progress Notes Filed: 07/02/2018 1:45 PM Note Text: GENETIC COUNSELING CONSULTATION Mariam Cleveland is a 32 year old male with a history of joint pain and hypermobility referred for genetic counseling by Dr. Roberto Kinsey. He is unaccompanied to his appointment today. The patient was seen in conjunction with Dr Rebecca Hawkins, Clinical Machine Sander. Please see her clinic note for additional information, including physical exam. HISTORY OF PRESENT ILLNESS: Mariam Cleveland raised concern for possible Marfan syndrome with his primary care doctor in April 2017 due to history of Marfanoid habitus, hypermobility, and poor exercise tolerance. Today he also brings up concern for possible Zaida Danlos syndrome. He recalls first hearing about Marfan/EDS when a nurse brought up possibility to him. He reports longstanding issues with his joints including generalized hypermobility and subluxations. He has good success with treatment through chiropractor. He has had issues with chronic pain involving his nerves, bones, joints, and muscles since his 20s. He has fatigue. He has allergies/sensitivites to multiple foods including corn, wheat, eggs, dairy, some nuts. His main symptom is GI. His PCP ordered echocardiogram which was reassuring. He reports different sensation of heartbeat when he overexerts and wonders if this could represent MVP. He will start to black out with exertion. Mariam Cleveland was referred to genetics for further evaluation of connective tissue disorder. Cardiology evaluations: ECHO 05/04/2017 [facility] Aortic dilatation: No, but aortic dimensions not provided on OSH echo report Mitral valve prolapse: No Arterial tortuosity: Unknown Dural ectasia: Unknown Last eye exam: Unsure Checkerer Hand: Unknown - glasses since childhood - myopia -1.25 - dilated eye exams WNL in the past Surgical history: No past surgical history on file. 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 Age diagnosed 30s, in hands; symptoms within the past year. Improved with topicals. Hypermobility: Yes Dislocations: Multiple subluxations, twisted vertebrae , believes most of his joints have been affected at one point. Able to self correct or utilizes chiropractor. Hernias: Umbilical hernia, currently untreated. Has area in L inguinal region that he thinks may be weak Striae: No Soft/Velvety skin: Yes Abnormal scars: No Thin skin: No Hyperextensible skin: No Livedo reticularis: No Easy bruising: No Varicose veins: No Pes planus: High arches, was a toe walker in childhood Food or environmental allergies: Involvement, food and seasonal/environmental Gastrointestinal inflammatory disease: GI ulcers, able to improve with diet changes, supplements Hollow organs such as intestine, uterus and spleen prone to rupture: No SOCIAL HISTORY: Mariam Cleveland lives in [place], [place]. He does not have children. FAMILY HISTORY: The full family history will be available under scanned documents in the electronic medical record. Significant diagnoses are listed below: Sister, 37, 5'11 , macular degeneration, endometriosis, myopia; four children, her daughter wore helmet due to ?plagiocephaly Mother, 58, 5'4 , ortho/spine issues with multiple surgeries, DDD and herniations of discs Maternal aunt, healthy Maternal uncle, healthy Maternal grandfather, 80, knee replacements Maternal grandmother, 80, several of her relatives of CHF in her 60s Father, 58, 6'2 , healthy, knee injuries as a teen, lanky build, similar skin texture Paternal uncle x2, tall stature, healthy Paternal aunt, tall stature, healthy Paternal grandfather, at 78, ?liver v kidney failure, overweight, diabetes Paternal grandmother, at 75, cancer, diabetes Patient's maternal ancestors are of [place], [place], and [place] descent, and paternal ancestors are of [place] African and [place] descent. The remainder of the family history is negative for aneurysms, sudden , early-onset stroke/NH, known genetic disease, defects, multiple miscarriages or stillbirths, , developmental delay, mental retardation and consanguinity. IMPRESSION AND GENETIC COUNSELING: Mariam Cleveland is a 32 year old male with a history of joint pain, hypermobility, Marfanoid habitus. His family history is significant for tall stature in his sister, father. He had echocardiogram that did not show mitral valve or aortic disease. We briefly discussed the etiology of connective tissue disorders, which encompasses a group of conditions that can affect multiple parts of the body, such as the skeletal system (such as joint hypermobility, scoliosis, chest wall defects), skin (such as abnormal scarring, increased extensibility), eyes (such as myopia), and cardiovascular system (such as aortic dilation or aneurysm). There are multiple genetic syndromes that fall into the category of connective tissue disorders. For some of these conditions, such as Marfan syndrome and the vascular type of Zaida Danlos syndrome, the genetics of these disorders is well understood and clinical genetic testing is available. For other disorders, such as the hypermobile type of EDS, the genetic cause is not yet known. We reviewed the process of the genetics evaluation. Consideration of genetic testing or further clinical evaluations will be based upon his physical examination findings. Mariam Cleveland was evaluated by Dr. Rebecca Hawkins. Please see her note for additional details. Briefly, Mariam Cleveland's exam and history were not consistent with Marfan syndrome, Zaida Danlos syndrome, or other known genetic connective tissue disorder. The patient was seen for a total of 30 minutes in [id number] counseling. This plan is being carried out under oversight of Dr. Rebecca Hawkins, Clinical Machine Sander. This note is available to the patient through [employer] and will be sent to the referring provider through [employer] or the [place] Mail as necessary. Valeria Gutierrez MS, [facility], Licensed Genetic Counselor [facility] CC: Dr. Rebecca Wooten, [facility] CC: Mariam Cleveland [address] [place] [address] Roberto Kinsey, DO [address] [facility] [id number] Normal [facility] Vital Signs Date Time Vital Sign Value Performing Clinician Facility 12-30-2022 09:44-0400 Blood Pressure Location Carlos A CARROLL [facility] 12-30-2022 09:44-0400 Diastolic blood pressure 70 mm[Hg] Carlos A CARROLL [facility] 12-30-2022 09:44-0400 Heart rate 68 /min Carlos A CARROLL [facility] 12-30-2022 09:44-0400 Respiratory rate 16 /min Carlos A CARROLL [facility] 12-30-2022 09:44-0400 Systolic blood pressure 95 mm[Hg] Carlos A CARROLL [facility] 10-24-2022 10:02-0400 Blood Pressure Location Carlos A CARROLL [facility] 10-24-2022 10:02-0400 Diastolic blood pressure 60 mm[Hg] CarlosA CARROLL [facility] 10-24-2022 10:02-0400 Heart rate 80 /min Carlos A CARROLL [facility] 10-24-2022 10:02-0400 Systolic blood pressure 100 mm[Hg] Carlos A CARROLL [facility] 11-15-2021 17:00-0400 Body height 187.96 cm Rebekah Morales Other [employer] Other 11-15-2021 17:00-0400 Body mass index (BMI) [Ratio] 18.61 kg/m2 Rebekah Morales Other [employer] Other 11-15-2021 17:00-0400 Body temperature 97.7 [degF] Rebekah Morales Other [employer] Other 11-15-2021 17:00-0400 Body weight 65.77 kg Rebekah Morales Other [employer] Other 11-15-2021 17:00-0400 Respiratory rate 18 /min Rebekah Morales Other [employer] Other 11-15-2021 17:00-0400 SaO2% (BldA) [Mass fraction] 96 % Rebekah Morales Other [employer] Other Encounters Encounter Date Encounter Type Care Provider Facility Start: 09-04-2023 ambulatory NITESH SHAMMO Facility:[facility] Start: 05-16-2023 End: 05-17-2023 ambulatory NITESH SHAMMO Facility[facility] Start: 05-16-2023 End: 05-16-2023 Lab Drop off Ladonna X [facility] Start: 05-16-2023 End: 05-16-2023 Patient encounter procedure Ladonna X Orzech [facility] Start: 01-19-2023 End: 01-20-2023 ambulatory NITESH SHAMMO Facility:CD:[id number] Start: 12-30-2022 End: 12-31-2022 ambulatory NITESH SHAMMO Facility:[facility] Start: 12-30-2022 End: 12-30-2022 Patient encounter procedure Carlos A CARROLL [facility] Start: 10-24-2022 End: 10-25-2022 ambulatory NITESH SHAMMO Facility:[facility] Start: 10-24-2022 End: 10-24-2022 Patient encounter procedure Carlos A CARROLL [facility] Start: 08-10-2022 ambulatory NITESH SHAMMO Facility:[facility] Start: 07-30-2022 Encounter for genera l adult medical examination without abnormal findings NITESH SHAMMO [facility] Start: 07-27-2022 End: 07-27-2022 ambulatory NITESH SHAMMO Facility: Start: 07-27-2022 End: 07-27-2022 Encounter for general adult medical examination without abnormal findings NITESH SHAMMO Facility:[facility] Start: 06-22-2022 End: 06-22-[address] NONE LISTED REQUEST Facility:[facility] Start: 04-20-2022 End: 04-20-[address] NONE LISTED REQUEST Facility:[facility] Start: 03-18-2022 End: 03-18-2022 ambulatory Melissa Holland Facility:[facility] Start: 03-18-2022 End: 03-18-2022 ambulatory YUMIKO Holland Work Phone: [facility] Work Phone: Start: 03-18-2022 End: 03-18-2022 Departed Referred YUMIKO Holland Work Phone: [facility] [place] Work Phone: Start: 11-15-2021 End: 11-15-2021 ambulatory Rebekah Morales Other [employer] Other Start: 11-15-2021 Office outpatient ne w 20 minutes Rebekah Morales [facility] Start: 10-03-2021 End: 10-03-[address] EUGENIO RIVAS . Facility: Start: 06-07-2018 End: 06-07-2018 Patient encounter procedure REBECCA HAWKINS [facility] Procedures Date Procedure Procedure Detail Performing Clinician Tonsillectomy Carlos Aralph CARROLL Plan of Treatment Date Care Activity Detail Author Start: 03-18-2022 [facility] Immunizations Immunization Date Immunization Notes Care Provider Ramiro perry 06-18-1997 measles, mumps, rubella, and varicella virus vaccine Carlos Aralph CARROLL [facility] NEGATED: Highlighted row has not occurred!05-16-2023 influenza virus vaccine, unspecified formulation Ladonna Langston [facility] Payers Date Payer Category Payer Medicaid [id number] 2022 Self-pay [id number] 1984 Unknown [id number] [id number] 1984 Unknown [id number] 1984 Unknown [id number] 1984 Unknown [id number] 2.16.84 [id number] 1984 Unknown [id number] 2.16.8 [id number] 1984 Unknown [id number] 2.16.8 [id number] 1984 Unknown [id number] 2.16.8 [id number] 1984 Unknown [id number] 2.16.8 [id number] 1984 Unknown [id number] 2.16.8 [id number] 1984 Unknown [id number] 2.16.8 [id number] 1984 Unknown [id number] 2.16.8 [id number] 1959 Unknown [id number] 2.16. [id number] 1959 Unknown [id number] Unknown [id number] 2.16.8 [id number] Social History Date Type Detail Facility Unknown if ever smoked [employer] Other Sex Assigned At [facility] Start: 06-14-2017 Tobacco smoking stat us VAIS Smoker (finding) [facility] Start: 1985 Sex Assigned At Male F [facility] Tobacco Vaping [facility] Tobacco smoking status No Smokin g Status Entered [facility] Start: 12-30-2022 Tobacco smoking status Never s moked tobacco (finding) [facility] Functional Status Date Assessment Result Facility 05-16-2023 Functional Status N/A [facility] 12-30-2022 Functional Status N/A [facility] 10-24-2022 Functional Status N/A [facility] Hospital Discharge instructions 12-30-2022 Note Date & Type Note Facility 12-30-2022 Hospital Discharg e instructions Patient Education 12/30/2022 10:03:39 Kidney Stones, Ctps-jf-Taqd Kidney Stones Kidney stones are rock-like masses that form inside of the kidneys. Kidneys are organs that make pee (urine). A kidney stone may move into other parts of the urinary tract, including: The tubes that connect the kidneys to the bladder (ureters). The bladder. The tube that carries urine out of the body (urethra). Kidney stones can cause very bad pain and can block the flow of pee. The stone usually leaves your body (passes) through your pee. You may need to have a doctor take out the stone. What are the causes? Kidney stones may be caused by: A condition in which certain glands make too much parathyroid hormone (primary hyperparathyroidism). A buildup of a type of crystals in the bladder made of a chemical called uric acid. The body makes uric acid when you eat certain foods. Narrowing (stricture) of one or both of the ureters. A kidney blockage that you were born with. Past surgery on the kidney or the ureters, such as gastric bypass surgery. What increases the risk? You are more likely to develop this condition if: You have had a kidney stone in the past. You have a family history of kidney stones. You do not drink enough water. You eat a diet that is high in protein, salt (sodium), or sugar. You are overweight or very overweight (obese). What are the signs or symptoms? Symptoms of a kidney stone may include: Pain in the side of the belly, right below the ribs (flank pain). Pain usually spreads (radiates) to the groin. Needing to pee often or right away (urgently). Pain when going pee (urinating). Blood in your pee (hematuria). Feeling like you may vomit (nauseous). Vomiting. Fever and chills. How is this treated? Treatment depends on the size, location, and makeup of the kidney stones. The stones will often pass out of the body through peeing. You may need to: Drink more fluid to help pass the stone. In some cases, you may be given fluids through an IV tube put into one of your veins at the hospital. Take medicine for pain. Make changes in your diet to help keep kidney stones from coming back. Sometimes, medical procedures are needed to remove a kidney stone. This may involve: A procedure to break up kidney stones using a beam of light (laser) or shock waves. Surgery to remove the kidney stones. Follow these instructions at home: Medicines Take txgj-srp-agymcjt and prescription medicines only as told by your doctor. Ask your doctor if the medicine prescribed to you requires you to avoid driving or using heavy machinery. Eating and drinking Drink enough fluid to keep your pee pale yellow. You may be told to drink at least 8 10 glasses of water each day. This will help you pass the stone. If told by your doctor, change your diet. This may include: ?Limiting how much salt you eat. ?Eating more fruits and vegetables. ?Limiting how much meat, poultry, fish, and eggs you eat. Follow instructions from your doctor about eating or drinking restrictions. General instructions Collect pee samples as told by your doctor. You may need to collect a pee sample: ?24 hours after a stone comes out. ?8 12 weeks after a stone comes out, and every 6 12 months after that. Strain your pee every time you pee (urinate), for as long as told. Use the strainer that your doctor recommends. Do not throw out the stone. Keep it so that it can be tested by your doctor. Keep all follow-up visits as told by your doctor. This is important. You may need follow-up tests. How is this prevented? To prevent another kidney stone: Drink enough fluid to keep your pee pale yellow. This is the best way to prevent kidney stones. Eat healthy foods. Avoid certain foods as told by your doctor. You may be told to eat less protein. Stay at a healthy weight. Where to find more information National Kidney Foundation (NKF): www.kidney.org U[employer] (UCF): www.urologyhealth.org Contact a doctor if: You have pain that gets worse or does not get better with medicine. Get help right away if: You have a fever or chills. You get very bad pain. You get new pain in your belly (abdomen). You pass out (faint). You cannot pee. Summary Kidney stones are rock-like masses that form inside of the kidneys. Kidney stones can cause very bad pain and can block the flow of pee. The stones will often pass out of the body through peeing. Drink enough fluid to keep your pee pale yellow. This information is not intended to replace advice given to you by your health care provider. Make sure you discuss any questions you have with your health care provider. Document Revised: 11/08/2021 Document Reviewed: 11/08/2021 [employer] Patient Education 2022 [employer]. Follow Up Care 10/24/2022 10:53:30 With:JOSE GUTHRIE, Carlos A Burgos, URL Address: [facility] [address] , [place] [address] [phone] When: Unknown Comments:tracy Burgos ESWL w/ poss stent [facility] Hospital Discharge instructions 10-24-2022 Note Date & Type Note Facility 10-24-2022 Hospital Discharg e instructions Patient Education 10/24/2022 10:53:50 Prostatitis Prostatitis Prostatitis is swelling or inflammation of the prostate gland, also called the prostate. This gland is about 1.5 inches wide and 1 inch high, and it is involved in making semen. The prostate is located below a man's bladder, in front of the rectum. There are four types of prostatitis: Chronic prostatitis (CP), also called chronic pelvic pain syndrome (CPPS). This is the most common type of prostatitis. It is associated with increased muscle tone in the area between the hip bones (pelvic area), around the prostate. This type is also known as a pelvic floor disorder. Chronic bacterial prostatitis. This type usually results from an acute bacterial infection in the prostate gland that keeps coming back or has not been treated properly. The symptoms are less severe than those caused by acute bacterial prostatitis, which lasts a shorter time. Asymptomatic inflammatory prostatitis. This type does not have symptoms and does not need treatment. This is diagnosed when tests are done for other disorders of the urinary tract or reproductive tract. Acute bacterial prostatitis. This type starts quickly and results from an acute bacterial infection in the prostate gland. It is usually associated with a bladder infection, high fever, and chills. This is the least common type of prostatitis. What are the causes? Bacterial prostatitis is caused by an infection from bacteria. Chronic nonbacterial prostatitis may be caused by: Factors related to the nervous system. This system includes thebrain, spinal cord, and nerves. An autoimmune response. This happens when the body's disease-fighting system attacks healthy tissue in the body by mistake. Psychological factors. These have to do with how the mind works. The causes of the other types of prostatitis are usually not known. What are the signs or symptoms? Symptoms of this condition depend on the type of prostatitis you have. Acute bacterial prostatitis Symptoms may include: Pain or burning during urination. Frequent and sudden urges to urinate. Trouble starting to urinate. Fever. Chills. Pain in your muscles or joints, lower back, or lower abdomen. Other types of prostatitis Symptoms may include: Sudden urges to urinate, or urinating often. Trouble starting to urinate. Weak urine stream. Dribbling after urination. Discharge coming from the penis. Pain in the testicles, the penis, or the tip of the penis. Pain in the area in front of the rectum and below the scrotum (perineum). Pain when ejaculating. How is this diagnosed? This condition may be diagnosed based on: A physical and medical exam. A digital rectal exam. For this, the health care provider may use a finger to feel the prostate. A urine test to check for bacteria. A semen sample or blood tests. Ultrasound. Urodynamic tests to check how your body handles urine. Cystoscopy to look inside your bladder or inside the part of your body that drains urine from the bladder (urethra). How is this treated? Treatment for this condition depends on the type of prostatitis. Treatment may involve: Medicines to relieve pain or inflammation, or to help relax your muscles. Physical therapy. Heat therapy. Biofeedback. These techniques help you control certain body functions. Relaxation exercises. Antibiotic medicine, if your condition is caused by bacteria. Sitz baths. These warm water baths help to relax your pelvic floor muscles, which helps to relieve pressure on the prostate. Follow these instructions at home: Medicines Take uaya-shb-nsmrcaw and prescription medicines only as told by your health care provider. If you were prescribed an antibiotic medicine, take it as told by your health care provider. Do not stop using the antibiotic even if you start to feel better. Managing pain and swelling Take sitz baths as directed by your health care provider. For a sitz bath, sit in warm water that is deep enough to cover your hips and buttocks. If directed, apply heat to the affected area as often as told by your health care provider. Use the heat source that your health care provider recommends, such as a moist heat pack or a heating pad. ?Place a towel between your skin and the heat source. ?Leave the heat on for 20 30 minutes. ?Remove the heat if your skin turns bright red. This is especially important if you are unable to feel pain, heat, or cold. You may have a greater risk of getting burned. General instructions Do exercises as told by your health care provider, if you were prescribed physical therapy, biofeedback, or relaxation exercises. Keep all follow-up visits as told by your health care provider. This is important. Where to find more information National [place] of Diabetes and Digestive and Kidney Diseases: https://www.niddk.nih.gov Contact a health care provider if: Your symptoms get worse. You have a fever. Get help right away if: You have chills. You feel light-headed or feel like you may faint. You cannot urinate. You have blood or blood clots in your urine. Summary Prostatitis is swelling or inflammation of the prostate gland. Treatment for this condition depends on the type of prostatitis. Take gewn-bur-yfepxrv and prescription medicines only as told by your health care provider. Get help right away of you have chills, feel light-headed, feel like you may faint, cannot urinate, or have blood or blood clots in your urine. This information is not intended to replace advice given to you by your health care provider. Make sure you discuss any questions you have with your health care provider. Document Revised: 04/10/2020 Document Reviewed: 04/10/2020 [employer] Patient Education 2022 [employer]. Follow Up Care 08/10/2022 13:43:17 With:Carlos A CARROLL MD, URL Address: [facility] [address], [place] [address] [phone] When: Unknown Comments:2 mos w/ PSA [facility] Evaluation note 11-15-2021 Note Date & Type Note Facility 11-15-2021 Evaluation note Encounter Date Diagnosis Assessment Notes Oct, Contact with and (suspected) exposure to other viral communicable diseases (ICD-10 - Z20.828) Oct, Viral upper respiratory infection (ICD-10 - J06.9) Viral upper respiratory infection: adult home care material was printed Drink plenty of fluids, get plenty of rest. Take tylenol or ibupren as needed for aches, pains, fever. Follow up with your family physician if no improvement in 2 or 3 days. [employer] Other Evaluation + Plan note Note Date & Type Note Facility Evaluation + Plan note Future Appointments Appointment Date:12/30/2022 09:15:00 AM Scheduled Provider:Carlos A CARROLL MD Location:[facility] Appointment Type:URO Office Visit Diagnostic Tests PendingPSA Total 10/24/22 [facility] Evaluation + Plan note Note Date & Type Note Facility Evaluation + Plan note Future Appointments Appointment Date:08/11/2023 10:45:00 AM Scheduled Provider:Carlos A CARROLL MD Location:[facility] Appointment Type:URO Office Visit [facility] Evaluation + Plan note Note Date & Type Note Facility Evaluation + Plan note Future Appointments Appointment Date:08/11/2023 10:45:00 AM Scheduled Provider:Carlos A CARROLL MD Location:[facility] Appointment Type:URO Office Visit Diagnostic Tests PendingUrine Culture 05/16/23 [facility] Evaluation note Note Date & Type Note Facility Evaluation note No assessment information availa [facility] Work Phone: Hospital course Narrative Note Date & Type Note Facility Hospital course Narrative No data available for this section [facility] Hospital Discharge instructions Note Date & Type Note Facility Hospital Discharge instructions No data available for this section [facility] Progress note Note Date & Type Note Facility Progress note No data available for this section [facility] Summary Purpose Family History No Family History Records FoundNo Family History Records FoundNo Family History Records Found No data available for this section No data available for this section No data available for this section No Family History Records Found Advance Directives No Advanced Directives Records Found Advance Directive Response Recorded Date/ Time Advance Directives No April 1:29pm Additional Source Comments (unrecognized sect ion and content) No Status Records FoundNo Status Records FoundNo Status Records FoundNo Status Records Found INFORMATION SOURCE (unrecogn ized section and content) DATE CREATED AUTHOR 07/03/2018 [facility] DATE CREATED AUTHOR AUTHOR'S ORGANIZ ATION 03/30/2022 [facility] DATE CREATED AUTHOR AUTHOR'S ORGANIZ ATION 07/30/2022 [facility] DATE CREATED AUTHOR AUTHOR'S ORGANIZ ATION 07/25/2023 [facility] REASON FOR VISIT (unrecogniz ed section and content) SILVER IMPALA, FATIGUE, H/A, CONGESTION, SINUS DRAINAGE, LOOSE STOOL Care Teams (unrecognized sec tion and content) Team Status: Inactive Member Role Status Delvin Holland APRN Attending Provider Active Goals (unrecognized section and content) Goals may be documented in a n alternate section FOR RECORDS PERTAINING TO PATIENTS WHO ARE OR HAVE BEEN ENROLLED IN A CHEMICAL DEPENDENCY/SUBSTANCEABUSE PROGRAM, SOME INFORMATION MAY BE OMITTED. This clinical summary was aggregated from multiple sources. Caution should be exercised in using it in the provision of clinical care. This summary normalizes information from multiple sources, and as a consequence, information in this document may materially change the coding, format and clinical context of patient data. In addition, data may be omitted in some cases. CLINICAL DECISIONS SHOULD BE BASED ON THE PRIMARY CLINICAL RECORDS. [facility], [facility]. provides no warranty or guarantee of the accuracy or completeness of information in this document.
--- OUTSIDE RECORDS SUMMARY | 2023-08-17 16:10 | XMS_ITS | CCD ---
Author Organization [facility] Care Team Providers Care Hand Molder Meat Name Role Phone ROBERTO KINSEY Referring Unavailable REBECCA HAWKINS Attending Unavailable ROBERTO KINSEY Referring Unavailable Carmen Rebekah Unavailable YUMIKO Holland Attending Provider Melissa Holland [...] Drug Allergy Weal (disorder) [facility] (1 source) Dairy Propensity to adverse reactions stomach upset [facility] Other (2 sources) Sulfonamides (Antibiotic); Translations: [Sulfa (Sulfonamide Antibiotics)] Allergy to substance 06-15-19 [facility] (2 sources) Clindamycin; Translations: [clindamycin] Drug Allergy 06-23-19 [facility] (1 source) metroNIDAZOLE Drug Allergy 04-20-19 [facility] (2 sources) Sulfamethoxazole / Trimethoprim; Translations: [Bactrim] Drug Allergy [facility] (4 sources) Clindamycin; Translations: [clindamycin] Drug Allergy Weal (disorder) [facility] (5 sources) Metronidazole; Translations: [metronidazole containing compounds] Drug allergy Weal (disorder) [facility] Medications Current Medications Medication Drug Class(es) Dates Sig (Normalized) Sig (Original) 24 hr alfuzosin hydrochloride 10 mg extended release oral tablet (3 sources) alpha-Adrenergic King Start: 12-30-2022 End: 12-25-2023 take 1 tablet by mouth once daily alfuzosin 10 mg ER Tab 10 mg = 1 tab(s), Oral, Daily, X 90 day(s), # 90 tab(s), Refills(s) 3, Pharmacy: [facility], 181, cm, 12/30/22 9:45:00 EDT, Height/Length [...] day(s), # 42 tab(s), Refills(s) 0, Pharmacy: [facility], 181, cm, 12/30/22 9:45:00 EDT, Height/Length [...] week(s), # 56 cap(s), Refills(s) 0, Pharmacy: [facility], 181, cm, 05/16/23 11:35:00 EST, Height/Length [...] day(s), # 14 tab(s), Refills(s) 0, Pharmacy: [facility], 181, cm, 10/24/22 10:07:00 EDT, Height/Length [...] 10-24-2022 Episodic Other aftercare (1 source) 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; 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] Onset: 06-24-2022 Episodic Other [...] 19:28 EST FREE TEXT SOURCE: Ivis CALDERON, CODING FILE CLERK-C, Ivis CALDERON, CODING FILE CLERK-C, Ladonna X Ladonna X FINAL REPORTS Final Report [] Verified Date/Time: 05/18/2023 12:35 EST 5,000 cfu/ml Mixed skin contaminants Performing Locations R1: This test was performed at: [facility], [address] [place] [address], [facility] , , [facility] Comment on above: Performed By: #### 2 [id number] ####[facility] [address] [place] [address] Screenson 05-18-2023 Screens [id number]#1.00 TIFF [facility] Screens [id number]#1.00 TIFF [facility] Patient Educationon 05-17-19 24 Patient Education Infectious [...] these instructions at home: Medicines ? Take bjqh-vzz-ueflxkn and prescription medicines only as told by [...] Where to find more information ? National [place] of Diabetes and Digestive and Kidney Diseases: (more content not included)... Normal [facility] Urology Office/Clinic Noteon 05-17-2023 Urology Office/Clinic Note [...] Given Patien (more content not included)... [facility] Comment on above: Result Comment: Elec tronically Signed By: CHELY Langston APRN, Ladonna Rodrigues\.br\Date and Time Signed: 05/17/23 16:57 EST RAD - MISCon 01-27-2023 RAD - MISC [id number]#1.00T IFF [facility] Operative Reporton Operative Report [id number]#1.00T IFF [facility] Lab Reportson 01-12-2023 Lab Reports [id number]#1.00T IFF [facility] Lab Reports [id number]#1.00T IFF [facility] Lab Reports [id number]#1.00T IFF [facility] RAD - MISCon 01-12-2023 RAD - MISC [id number]#1.00T IFF [facility] Ambulatory Visit Summaryon 1 Ambulatory Visit Summary [...] [facility] [address], [place] [phone] Medications What How Much When Instructions Unchanged [...] these instructions at home: Medicines ? Take vpgo-qtq-duyfmpu and prescription medicines only as told by [...] ? Ke (more content not included)... [facility] Consent for Procedure/Surger yon 12-30-2022 Consent for Procedure/Surgery [id number]#1.00T IFF [facility] Lab Reportson 12-30-2022 Lab Reports [id number]#1.00T IFF [facility] Patient Educationon 12-31-19 Patient Education Urology Kidney [...] these instructions at home: Medicines ? Take spir-sxd-hlkavgx and prescription medicines only as told by [...] provider. Document Revised: 11/08/2021 Document Reviewed: 11/08/2021 [employer] Patient Education ? 2022 [employer]. [facility] Physician Orderon 12-30-2022 Physician Order [id number]#1.00T IFF [facility] Urology Office/Clinic Noteon 12-30-2022 Urology Office/Clinic Note Chief Complaint PSAKUB HPI Staff 37 yo male here for 2 month f/u. Previous Dx: prostatitis, renal cyst. No hx of urological surgeries. Previous PSA 08/26/22 was 1.4. Pt then started on Levaquin 500mg s07ptmb. [facility]... KUB ordered and done 12/20/22 at [facility]. Pt called our office 11/22/22 c/o [...] cortical hypode (more content not included)... [facility] Comment on above: Result Comment: Elec tronically Signed By: JOSE GUTHRIE, Carlos A Burgos\.br\Date and Time Signed: 12/30/22 10:19 EDT\.br\Electronically Co-Signed By: Mary Carmen Montoya\.br\Date and Time Co-Signed: 12/30/22 10:17 EDT RAD - MISCon 12-26-2022 RAD - MISC [id number]#1.00T IFF [facility] Lab Reportson 12-23-2022 Lab Reports [id number]#1.00T IFF [facility] RAD - CT Reporton 11-21-2022 RAD - CT Report [id number]#1.00C D:127 [facility] Lab Reportson 10-25-2022 Lab Reports [id number]#1.00 CD:127 [facility] Ambulatory Visit Summaryon 0 10-24-2022 Ambulatory Visit Summary MARIAM CLEVELAND :1985 Visit Date:10/24/2022 Ambulatory Visit Instructions Your Diagnosis Prostatitis Renal cyst Prostate cancer screening Tests Performed Urnls Dip Stick Auto w/o Microscopy POC 02104 Your Care Team Attending Physician - Carlos [...] A CARROLL MD Where: [facility] Lab Reportson 10-24-2022 Lab Reports [id number]#1.00C D:127 [facility] Lab Reports [id number]#1.00 CD:127 [facility] Lab Reports [id number]#1.00 CD:127 [facility] Lab Reports [id number]#1.00 CD:127 [facility] Lab Reports [id number]#1.00 CD:127 [facility] Lab Reports [id number]#1.00 CD:127 [facility] Patient Educationon 10-25-19 23 Patient Education Infectious [...] these instructions at home: Medicines ? Take axce-wat-noqeuwb and prescription medicines only as told by [...] Where to find more information ? National [place] of Diabetes and Digestive and Kidney Diseases: (more content not included)... [facility] Physician Referralon 023 Physician Referral [id number]#1.00C D:127 [facility] Reminderson 10-24-2022 Reminders - From: Mary Carmen Montoya [facility] Sent: 10/24/2022 13:29:00 EDT Show up: 11/24/2022 13:27:00 EDT Subject: PSA Reminder Message Please Remember to:_have pt get PSA drawn after completing abx course (should be done by 11/08/22) for prostatitis. [facility] Urology Office/Clinic Noteon 10-24-2022 Urology Office/Clinic Note [...] Urology [address], [place] [phone] Additional Instructions: 2 mos w/ PSA Patient [...] Authenticated by (more content not included)... [facility] Comment on above: Result Comment: Elec tronically [...] Trimethoprim/Sulfametho xazole <=20 S F Normal [facility] Comment on above: Performed By: #### U RCX #### [facility] [address] [place] [address] Dr. Anisa Carreno UA (CLEAN/CATCH) MICROSCOPIC IF INDICATEon 07-27-2022 Bilirubin Ql (U) Negative Normal NEGATIVE [facility] Comment on above: Performed By: #### U MICRO, ERUR #### [facility] [address] [place] [address] Dr. Anisa Carreno Clarity (U) CLEAR Normal CLEAR [facility] Comment on above: Performed By: #### U MICRO, ERUR #### [facility] [address] [address] [address] Anisa Carreno Color (U) LT. YELLOW Normal YELLOW [facility] Comment on above: Performed By: #### U MICRO, ERUR #### [facility] [address] [place] [address] Dr. Anisa Carreno Glucose Ql (U) Negative Normal NEGATIVE [facility] Comment on above: Performed By: #### U MICRO, ERUR #### [facility] [address] [place] [address] Dr. Anisa Carreno Hemoglobin Ql (U) TRACE-INTACT Abnormal NEGATIVE [facility] Comment on above: Performed By: #### U MICRO, ERUR #### [facility] [address] [place] [address] Dr. Anisa Carreno Ketones Ql (U) Negative Normal NEGATIVE [facility] Comment on above: Performed By: #### U MICRO, ERUR #### [facility] [address] [place] [address] Dr. Anisa Carreno LEUKOCYTES SMALL Abnormal NEGATIVE [facility] Comment on above: Performed By: #### U MICRO, ERUR #### [facility] [address] [place] [address] Dr. Anisa Carreno Nitrite Ql (U) Negative Normal NEGATIVE [facility] Comment on above: Performed By: #### U MICRO, ERUR #### [facility] [address] [address] [address] Anisa Carreno pH (U) 5.5 [pH] Normal 5-9 [facility] Comment on above: Performed By: #### U MICRO, ERUR #### [facility] [address] [place] [address] Dr. Anisa Carreno SPEC GRAVITY 1.025 Normal 1.005-<=1.025 [facility] Comment on above: Performed By: #### U MICRO, ERUR #### [facility] [address] [place] [address] Dr. Anisa Carreno UA PROTEIN Negative Normal NEGATIVE/ TRACE [facility] Comment on above: Performed By: #### U MICRO, ERUR #### [facility] [address] [address] [address] Anisa Carreno UR MICRO IND INDICATED Normal [facility] Comment on above: Performed By: #### U MICRO, ERUR #### [facility] [address] [address] [address] Anisa Carreno Urobilinogen Qn (U) 0.2 {Jody'U}/dL Normal 0.2 - 1.0 [facility] Comment on above: Performed By: #### U MICRO, ERUR #### [facility] [address] [address] [address] Anisa Carreno URINE MICROSCOPIC ONLYon BACTERIA SMALL Abnormal NONE SEEN [facility] Comment on above: Performed By: #### U MICRO, ERUR #### [facility] [address] [place] [address] Dr. Anisa Carreno Bacteria identified Cx Nom (U) CX ALREADY ORDERED Normal [facility] Comment on above: Performed By: #### U MICRO, ERUR #### [facility] [address] [place] [address] Dr. Anisa Carreno CAST NONE SEEN Normal NONE SEEN [facility] Comment on above: Performed By: #### U MICRO, ERUR #### [facility] [address] [address] [address] Anisa Carreno Crystals LM Nom (Urine sed) NONE SEEN Normal NONE SEEN [facility] Comment on above: Performed By: #### U MICRO, ERUR #### [facility] [address] [address] [address] Anisa Carreno Epithelial cells LM Ql (Urine sed) RARE Normal NONE SEEN /RARE [facility] Comment on above: Performed By: #### U MICRO, ERUR #### [facility] [address] [address] [address] Anisa Carreno MUCOUS NONE SEEN Normal NONE SEEN [facility] Comment on above: Performed By: #### U MICRO, ERUR #### [facility] [address] [place] [address] Dr. Anisa Carreno RBC 5-10 Abnormal 0-2 [facility] Comment on above: Performed By: #### U MICRO, ERUR #### [facility] [address] [place] [address] Dr. Anisa Carreno WBC 10-20 Abnormal NONE SEEN [facility] Comment on above: Performed By: #### U MICRO, ERUR #### [facility] [address] [place] [address] Dr. Anisa Carreno CHLAMYDIA/GONOCOCCUS NIDIA (SW AB/URINE/PAPon 06-25-2022 Chlamydia trachomatis, NIDIA Negative Normal Negative [facility] Comment on above: Performed By: #### C T/NGNA #### [facility] [address] [place] [address] Dr. Anisa Carreno Neisseria gonorrhoeae, NIDIA Negative Normal Negative [facility] Comment on above: Performed By: #### C T/NGNA #### [facility] [address] [place] [address] Dr. Anisa Carreno CULTURE URINEon 06-25-2022 CULTURE [...] Trimethoprim/Sulfametho xazole <=20 S F Normal [facility] Comment on above: Performed By: #### U RCX #### [facility] [address] [place] [address] Dr. Anisa Carreno ER URINE PROFILEon 3 Bilirubin Ql (U) Negative Normal NEGATIVE [facility] Comment on above: Performed By: #### U MICRO, ERUR #### [facility] [address] [address] [address] Anisa Carreno Clarity (U) SL CLOUDY Abnormal CLEAR [facility] Comment on above: Performed By: #### U MICRO, ERUR #### [facility] [address] [place] [address] Dr. Anisa Carreno Color (U) LT. YELLOW Normal YELLOW [facility] Comment on above: Performed By: #### U MICRO, ERUR #### [facility] [address] [place] [address] Dr. Anisa Carreno ERUAHD A micrscopic examination will be performed if indicated. Normal [facility] Comment on above: Performed By: #### U MICRO, ERUR #### [facility] [address] [place] [address] Dr. Anisa Carreno Glucose Ql (U) Negative Normal NEGATIVE [facility] Comment on above: Performed By: #### U MICRO, ERUR #### [facility] [address] [place] [address] Dr. Anisa Carreno Hemoglobin Ql (U) TRACE-INTACT Abnormal NEGATIVE [facility] Comment on above: Performed By: #### U MICRO, ERUR #### [facility] [address] [place] [address] Dr. Anisa Carreno Ketones Ql (U) Negative Normal NEGATIVE [facility] Comment on above: Performed By: #### U MICRO, ERUR #### [facility] [address] [place] [address] Dr. Anisa Carreno LEUKOCYTES MODERATE Abnormal NEGATIVE [facility] Comment on above: Performed By: #### U MICRO, ERUR #### [facility] [address] [address] [address] Anisa Carreno Nitrite Ql (U) Negative Normal NEGATIVE [facility] Comment on above: Performed By: #### U MICRO, ERUR #### [facility] [address] [place] [address] Dr. Anisa Carreno pH (U) 6.5 [pH] Normal 5-9 [facility] Comment on above: Performed By: #### U MICRO, ERUR #### [facility] [address] [place] [address] Dr. Anisa Carreno SPEC GRAVITY 1.010 Normal 1.005-<=1.025 [facility] Comment on above: Performed By: #### U MICRO, ERUR #### [facility] [address] [place] [address] Dr. Anisa Carreno UA PROTEIN Negative Normal NEGATIVE/ TRACE [facility] Comment on above: Performed By: #### U MICRO, ERUR #### [facility] [address] [place] [address] Dr. Anisa Carreno UR MICRO IND INDICATED Normal [facility] Comment on above: Performed By: #### U MICRO, ERUR #### [facility] [address] [place] [address] Dr. Anisa Carreno Urobilinogen Qn (U) 0.2 {Jody'U}/dL Normal 0.2 - 1.0 [facility] Comment on above: Performed By: #### U MICRO, ERUR #### [facility] [address] [place] [address] Dr. Anisa Carreno URINE MICROSCOPIC ONLYon BACTERIA TRACE Abnormal NONE SEEN [facility] Comment on above: Performed By: #### U MICRO, ERUR #### [facility] [address] [place] [address] Dr. Anisa Carreno Bacteria identified Cx Nom (U) INDICATED Normal [facility] Comment on above: Performed By: #### U MICRO, ERUR #### [facility] [address] [place] [address] Dr. Anisa Carreno CAST NONE SEEN Normal NONE SEEN [facility] Comment on above: Performed By: #### U MICRO, ERUR #### [facility] [address] [place] [address] Dr. Anisa Carreno Crystals LM Nom (Urine sed) NONE SEEN Normal NONE SEEN [facility] Comment on above: Performed By: #### U MICRO, ERUR #### [facility] [address] [place] [address] Dr. Anisa Carreno Epithelial cells LM Ql (Urine sed) NONE SEEN Normal NONE SEEN /RARE [facility] Comment on above: Performed By: #### U MICRO, ERUR #### [facility] [address] [place] [address] Dr. Anisa Carreno MUCOUS NONE SEEN Normal NONE SEEN [facility] Comment on above: Performed By: #### U MICRO, ERUR #### [facility] [address] [place] [address] Dr. Anisa Carreno RBC 0-2 Normal 0-2 [facility] Comment on above: Performed By: #### U MICRO, ERUR #### [facility] [address] [place] [address] Dr. Anisa Carreno WBC 10-20 Abnormal NONE SEEN [facility] Comment on above: Performed By: #### U MICRO, ERUR #### [facility] [address] [place] [address] Dr. Anisa Carreno CHLAMYDIA/GONOCOCCUS NIDIA ( AB/URINE/PAPon 04-23-2022 Chlamydia trachomatis, NIDIA Negative Normal Negative [facility] Comment on above: Performed By: #### C T/NGNA #### [facility] [address] [address] [address] Anisa Carreno Neisseria gonorrhoeae, NIDIA Negative Normal Negative [facility] Comment on above: Performed By: #### C T/NGNA #### [facility] [address] [place] [address] Dr. Anisa Carreno CULTURE URINEon 04-22-2022 CULTURE [...] Trimethoprim/Sulfametho xazole <=20 S F Normal [facility] Comment on above: Performed By: #### U MICRO, ERUR #### [facility] [address] [place] [address] Dr. Anisa Carreno CBC AUTO DIFFon 04-20-2022 BASO # 0.0 103/ul Normal 0.0-0.1 [facility] Comment on above: Performed By: #### U MICRO, ERUR #### [facility] [address] [place] [address] Dr. Anisa Carreno Basophils/100 WBC (Bld) 0.6 % Normal 0.2-2.0 [facility] Comment on above: Performed By: #### U MICRO, ERUR #### [facility] [address] [place] [address] Dr. Anisa Carreno EO # 0.1 103/ul Normal 0.0-0.7 [facility] Comment on above: Performed By: #### U MICRO, ERUR #### [facility] [address] [place] [address] Dr. Anisa Carreno Eosinophils/100 WBC (Bld) 0.9 % Normal 0.9-7.0 [facility] Comment on above: Performed By: #### U MICRO, ERUR #### [facility] [address] [place] [address] Dr. Anisa Carreno Erythrocyte distribution width (RBC) [Ratio] 12.1 % Normal 11.0-15.0 [facility] Comment on above: Performed By: #### U MICRO, ERUR #### [facility] [address] [place] [address] Dr. Anisa Carreno Hematocrit (Bld) [Volume fraction] 47.2 % Normal 42.0-54.0 [facility] Comment on above: Performed By: #### U MICRO, ERUR #### [facility] [address] [place] [address] Dr. Anisa Carreno Hemoglobin (Bld) [Mass/Vol] 15.8 g/dL Normal 14.0-18.0 [facility] Comment on above: Performed By: #### U MICRO, ERUR #### [facility] [address] [address] [address] Anisa Carreno IG # 0.02 10e3/ul Normal 0.00-0.03 [facility] Comment on above: Performed By: #### U MICRO, ERUR #### [facility] [address] [address] [address] Anisa Carreno IG % 0.3 % Normal 0.0-0.5 [facility] Comment on above: Performed By: #### U MICRO, ERUR #### [facility] [address] [address] [address] Anisa Carreno LYMPH # 1.6 103/ul Normal 1.2-3.8 [facility] Comment on above: Performed By: #### U MICRO, ERUR #### [facility] [address] [place] [address] Dr. Anisa Carreno Lymphocytes/100 WBC (Bld) 24.4 % Normal 20.5-60.0 [facility] Comment on above: Performed By: #### U MICRO, ERUR #### [facility] [address] [place] [address] Dr. Anisa Carreno MANUAL DIFF REQ NO Normal [facility] Comment on above: Performed By: #### U MICRO, ERUR #### [facility] [address] [address] [address] Anisa Carreno MCH (RBC) [Entitic mass] 32.3 pg Normal 25.9-34.0 [facility] Comment on above: Performed By: #### U MICRO, ERUR #### [facility] [address] [address] [address] Anisa Carreno MCHC (RBC) [Mass/Vol] 33.5 g/dL Normal 29.9-35.2 [facility] Comment on above: Performed By: #### U MICRO, ERUR #### [facility] [address] [address] [address] Anisa Carreno MCV (RBC) [Entitic vol] 96.5 fL Critically high 80.0-94.0 [facility] Comment on above: Performed By: #### U MICRO, ERUR #### [facility] [address] [address] [address] Anisa Carreno MONO # 0.5 103/ul Normal 0.3-0.8 [facility] Comment on above: Performed By: #### U MICRO, ERUR #### [facility] [address] [address] [address] Anisa Carreno Monocytes/100 WBC (Bld) 8.1 % Normal 1.7-12.0 [facility] Comment on above: Performed By: #### U MICRO, ERUR #### [facility] [address] [address] [address] Anisa Carreno NEUT # 4.4 103/ul Normal 1.4-6.5 [facility] Comment on above: Performed By: #### U MICRO, ERUR #### [facility] [address] [place] [address] Dr. Anisa Carreno Neutrophils/100 WBC (Bld) 65.7 % Normal 43.0-75.0 [facility] Comment on above: Performed By: #### U MICRO, ERUR #### [facility] [address] [address] [address] Anisa Carreno Platelet mean volume (Bld) [Entitic vol] 8.8 fL Critically low 9.5-13.5 [facility] Comment on above: Performed By: #### U MICRO, ERUR #### [facility] [address] [address] [address] Anisa Carreno PLT 289 103/ul Normal 150-450 [facility] Comment on above: Performed By: #### U MICRO, ERUR #### [facility] [address] [address] [address] Anisa Carreno RBC 4.89 106/ul Normal 4.70-6.10 [facility] Comment on above: Performed By: #### U MICRO, ERUR #### [facility] [address] [address] [address] Anisa Carreno WBC 6.7 103/ul Normal 4.0-11.0 [facility] Comment on above: Performed By: #### U MICRO, ERUR #### [facility] [address] [address] [address] Anisa MOHR URINE PROFILEon 3 Bilirubin Ql (U) Negative Normal NEGATIVE [facility] Comment on above: Performed By: #### U MICRO, ERUR #### [facility] [address] [place] [address] Dr. Anisa Carreno Clarity (U) CLEAR Normal CLEAR [facility] Comment on above: Performed By: #### U MICRO, ERUR #### [facility] [address] [address] [address] Anisa Carreno Color (U) LT. YELLOW Normal YELLOW [facility] Comment on above: Performed By: #### U MICRO, ERUR #### [facility] [address] [place] [address] Dr. Anisa PULLIAMD A micrscopic examination will be performed if indicated. Normal [facility] Comment on above: Performed By: #### U MICRO, ERUR #### [facility] [address] [place] [address] Dr. Anisa Carreno Glucose Ql (U) Negative Normal NEGATIVE [facility] Comment on above: Performed By: #### U MICRO, ERUR #### [facility] [address] [place] [address] Dr. Anisa Carreno Hemoglobin Ql (U) TRACE-INTACT Abnormal NEGATIVE [facility] Comment on above: Performed By: #### U MICRO, ERUR #### [facility] [address] [address] [address] Anisa Carreno Ketones Ql (U) Negative Normal NEGATIVE [facility] Comment on above: Performed By: #### U MICRO, ERUR #### [facility] [address] [address] [address] Anisa Carreno LEUKOCYTES SMALL Abnormal NEGATIVE [facility] Comment on above: Performed By: #### U MICRO, ERUR #### [facility] [address] [place] [address] Dr. Anisa Carreno Nitrite Ql (U) Negative Normal NEGATIVE [facility] Comment on above: Performed By: #### U MICRO, ERUR #### [facility] [address] [place] [address] Dr. Anisa Carreno pH (U) 6.0 [pH] Normal 5-9 [facility] Comment on above: Performed By: #### U MICRO, ERUR #### [facility] [address] [place] [address] Dr. Anisa Carreno SPEC GRAVITY 1.015 Normal 1.005-<=1.025 [facility] Comment on above: Performed By: #### U MICRO, ERUR #### [facility] [address] [place] [address] Dr. Anisa Carreno UA PROTEIN Negative Normal NEGATIVE/ TRACE [facility] Comment on above: Performed By: #### U MICRO, ERUR #### [facility] [address] [place] [address] Dr. Anisa Carreno UR MICRO IND INDICATED Normal [facility] Comment on above: Performed By: #### U MICRO, ERUR #### [facility] [address] [place] [address] Dr. Anisa Carreno Urobilinogen Qn (U) 0.2 {Jody'U}/dL Normal 0.2 - 1.0 [facility] Comment on above: Performed By: #### U MICRO, ERUR #### [facility] [address] [place] [address] Dr. Anisa Carreno LIPASEon 04-20-2022 Lipase [Catalytic activity/Vol] 166.0 U/L Normal 73.0-393.0 [facility] Comment on above: Performed By: #### L IPA, CMP #### [facility] [address] [place] [address] Dr. Anisa Carreno PROF 14(COMP METB)on 023 Albumin [Mass/Vol] 4.4 g/dL Normal 3.4-5.0 [facility] Comment on above: Performed By: #### L IPA, CMP #### [facility] [address] [place] [address] Dr. Anisa Carreno Albumin/Globulin [Mass ratio] 1.3 {ratio} Normal [facility] Comment on above: Performed By: #### L IPA, CMP #### [facility] [address] [place] [address] Dr. Anisa Carreno ALP [Catalytic activity/Vol] 63 U/L Normal 46-116 [facility] Comment on above: Performed By: #### L IPA, CMP #### [facility] [address] [place] [address] Dr. Anisa Carreno ALT [Catalytic activity/Vol] 20 U/L Normal 16-63 [facility] Comment on above: Performed By: #### L IPA, CMP #### [facility] [address] [place] [address] Dr. Anisa Carreno Anion gap [Moles/Vol] 13.0 mmol/L Normal [facility] Comment on above: Performed By: #### L IPA, CMP #### [facility] [address] [place] [address] Dr. Anisa Carreno AST [Catalytic activity/Vol] 10 U/L Critically low 15-37 [facility] Comment on above: Performed By: #### L IPA, CMP #### [facility] [address] [place] [address] Dr. Anisa Carreno Bilirubin [Mass/Vol] 0.7 mg/dL Normal 0.2-1.0 [facility] Comment on above: Performed By: #### L IPA, CMP #### [facility] [address] [place] [address] Dr. Anisa Carreno Calcium [Mass/Vol] 9.4 mg/dL Normal 8.5-10.1 [facility] Comment on above: Performed By: #### L IPA, CMP #### [facility] [address] [place] [address] Dr. Anisa Carreno Chloride [Moles/Vol] 102 mmol/L Normal 98-107 [facility] Comment on above: Performed By: #### L IPA, CMP #### [facility] [address] [place] [address] Dr. Anisa Carreno CO2 [Moles/Vol] 29.6 mmol/L Normal 21.0-32.0 [facility] Comment on above: Performed By: #### L IPA, CMP #### [facility] [address] [address] [address] Anisa Carreno Creatinine [Mass/Vol] 0.94 mg/dL Normal 0.70-1.30 [facility] Comment on above: Performed By: #### L IPA, CMP #### [facility] [address] [address] [address] Anisa Carreno EGFR-AF PORTUGUESE >60 Normal >=60 [facility] Comment on above: Performed By: #### L IPA, CMP #### [facility] [address] [place] [address] Dr. Anisa Carreno EGFR-NON AF [place]UESE >60 Normal >=60 [facility] Comment on above: Performed By: #### L IPA, CMP #### [facility] [address] [place] [address] Dr. Anisa Carreno Globulin (S) [Mass/Vol] 3.3 g/dL Normal [facility] Comment on above: Performed By: #### L IPA, CMP #### [facility] [address] [place] [address] Dr. Anisa Carreno Glucose [Mass/Vol] 101 mg/dL Normal 74-106 [facility] Comment on above: Performed By: #### L IPA, CMP #### [facility] [address] [place] [address] Dr. Anisa Carreno Potassium [Moles/Vol] 4.6 mmol/L Normal 3.5-5.1 [facility] Comment on above: Performed By: #### L IPA, CMP #### [facility] [address] [place] [address] Dr. Anisa Carreno Protein [Mass/Vol] 7.7 g/dL Normal 6.4-8.2 [facility] Comment on above: Performed By: #### L IPA, CMP #### [facility] [address] [place] [address] Dr. Anisa Carreno Sodium [Moles/Vol] 140 mmol/L Normal 136-145 [facility] Comment on above: Performed By: #### L IPA, CMP #### [facility] [address] [place] [address] Dr. Anisa Carreno Urea nitrogen [Mass/Vol] 16.0 mg/dL Normal 7.0-18.0 [facility] Comment on above: Performed By: #### L IPA, CMP #### [facility] [address] [place] [address] Dr. Anisa Carreno Urea nitrogen/Creatini ne [Mass ratio] 17.0 mg/mg Normal [facility] Comment on above: Performed By: #### L IPA, CMP #### [facility] [address] [place] [address] Dr. Anisa Carreno PROTIMEon 04-20-2022 INR Coag (PPP) [Relative time] 0.94 {INR} Normal [facility] Comment on above: Performed By: #### P T, PTT #### [facility] [address] [place] [address] Dr. Anisa Carreno INR GUIDELINES SEE BELOW Normal [facility] Comment on above: Result Comment: SAURABH RED INR: 2.0 - 3.0 CONDITIONS NOT LISTED BELOW 2.5 - 3.5 FOR PROSTHETIC HEART VALVE REPLACEMENT 2.5 - 3.5 RECURRENT THROMBOSIS Performed By: #### P T, PTT #### [facility] [address] [place] [address] Dr. Anisa Carreno PT Coag (PPP) [Time] 10.0 s Normal 9.0-11.6 [facility] Comment on above: Performed By: #### P T, PTT #### [facility] [address] [place] [address] Dr. Anisa Carreno PTTon 04-20-2022 aPTT Coag (Bld) [Time] 29.6 s Normal 22.3-36.2 [facility] Comment on above: Performed By: #### P T, PTT #### [facility] [address] [place] [address] Dr. Anisa Carreno URINE MICROSCOPIC ONLYon BACTERIA SMALL Abnormal NONE SEEN [facility] Comment on above: Performed By: #### U MICRO, ERUR #### [facility] [address] [place] [address] Dr. Anisa Carreno Bacteria identified Cx Nom (U) INDICATED Normal [facility] Comment on above: Performed By: #### U MICRO, ERUR #### [facility] [address] [place] [address] Dr. Anisa Carreno CAST NONE SEEN Normal NONE SEEN [facility] Comment on above: Performed By: #### U MICRO, ERUR #### [facility] [address] [place] [address] Dr. Anisa Carreno Crystals LM Nom (Urine sed) NONE SEEN Normal NONE SEEN [facility] Comment on above: Performed By: #### U MICRO, ERUR #### [facility] [address] [place] [address] Dr. Anisa Carreno Epithelial cells LM Ql (Urine sed) FEW Abnormal NONE SEEN /RARE [facility] Comment on above: Performed By: #### U MICRO, ERUR #### [facility] [address] [place] [address] Dr. Anisa Carreno MUCOUS NONE SEEN Normal NONE SEEN [facility] Comment on above: Performed By: #### U MICRO, ERUR #### [facility] [address] [place] [address] Dr. Anisa Carreno RBC 2-5 Abnormal 0-2 [facility] Comment on above: Performed By: #### U MICRO, ERUR #### [facility] [address] [place] [address] Dr. Anisa Carreno WBC 20-50 Abnormal NONE SEEN [facility] Comment on above: Performed By: #### U MICRO, ERUR #### [facility] [address] [place] [address] Dr. Anisa Carreno Chlamydia/GC/Trich NAAon Chlamydia Trachomotis, NIDIA Negative Normal Negative [facility] Comment on above: Performed By: #### G CCHLAMTRI #### [facility] , Neisseria Gonorrhoeae, NIDIA Negative Normal Negative [facility] Comment on above: Performed By: #### [facility] #### [facility] , Trichomonas NIDIA Negative Normal Negative [facility] Comment on above: Result Comment: Perf ormed at: =G - [facility] [address] [place] [id number] Aerospace Stress Engineer: Gail Aguilar MD, Phone: [phone] PERFORMED BY: [facility] [place] [address] PATHOLOGIST STAINED GLASS JOINER MARSHA HUGGINS M.D. Performed By: #### [facility] #### [facility] , SARS-CoV-2 (COVID-19) RNA NA A+probe Ql (Resp)on 11-15-2021 SARS-CoV-2 (COVID-19) RNA NIDIA+probe Ql (Unsp spec) Negative [employer] Other [employer] 06-07-2018 CNOV Office Visit (GMIT) MARIAM CLEVELAND ([id number]) 1985 M Date Time Provider Department 06/07/18 9:30 AM REBECCA HAWKINS During your visit today, we recorded the following information about you: Rebecca Hawkins MD 06/07/2018 11:10 AM Signed [facility] CONNECTIVE TISSUE DISORDERS CLINIC Patient: Mariam [facility] # [id number] Date of clinic visit: June 07, 2018 PRESENTING PROBLEM: Mariam Cleveland is a 32 year old old man who was comes to Genetics Clinic for evaluation for a possible connective tissue disorder. The [facility] EMR was reviewed prior to the visit [...] triple beating He has never seen a helper electrical. Ophthalmology: - he wears glasses for mild [...] [facility] [place] [address]/ [place] [phone] or appointments office fax Referring Provider: RBOERTO KINSEY [[id number]] Allergies As of Date: 06/07/2018 (Not on File) Date Reviewed: Never Reviewed Visit Diagnosis:Chronic pain syndrome [G89.4] Problem List As Of Date: 06/07/2018 (None) Encounter Status:Closed by REBECCA HAWKINS MD on 06/07/18 Normal [facility] CNOV Office Visit (GMIT) MARIAM CLEVELAND ([id number]) 1985 M Date Time Provider Department 06/07/18 9:00 AM [facility] During your visit today, we recorded [...] in conjunction with Dr Rebecca Hawkins, Clinical Vp Software Engineering. Please see her clinic note for additional [...] start to black out with exertion. Mariam Cleevland was referred to genetics for further evaluation of connective tissue disorder. Cardiology evaluations: ECHO 05/04/2017 [facility] Aortic dilatation: No, but aortic dimensions not provided on OSH echo report Mitral valve prolapse: No Arterial tortuosity: Unknown Dural ectasia: Unknown Last eye exam: Unsure Training Mgr: Unknown - glasses since childhood - myopia [...] No SOCIAL HISTORY: Mariam Cleveland lives in [place], [place]. He does not have children. FAMILY [...] cancer, diabetes Patient's maternal ancestors are of [place], [place], and [place] descent, and paternal ancestors are of [place] and [place] descent. The remainder of the family history is negative for aneurysms, sudden , early-onset stroke/IA, known genetic disease, defects, multiple miscarriages or [...] for a total of 30 minutes in [id number] counseling. This plan is being carried out under oversight of Dr. Rebecca Hawkins, Clinical Vp Software Engineering. This note is available to the patient through [employer] and will be sent to the referring provider through [facility] or the [place] Mail as necessary. Valeria Gutierrez MS, [facility], Licensed Genetic Counselor [facility] CC: Dr. Rebecca Wooten [facility] CC: Mariam [place] [id number] [facility] [address] Roberto Kinsey DO [address] [facility] [address] Referring Provider: ROBERTO KINSEY [[id number]] Allergies As of Date: 06/07/2018 (Not on File) Date Reviewed: Never Reviewed Primary Visit Diagnosis:Chronic pain syndrome [G89.4] Problem List As Of Date: 06/07/2018 (None) Encounter Status:Closed by VALERIA GUTIERREZ CGC on 07/02/18 Normal [facility] PROGRESSon 06-07-2018 Protein mass conc HNO ID: [id number] Author: Rebecca Hawkins Service: ? Author Type: Physician Type: Progress Notes Filed: 06/07/2018 11:10 AM Note Text: [facility] CONNECTIVE TISSUE DISORDERS CLINIC Patient: Mariam Cleveland [facility] # [id number] Date of clinic visit: June 07, 2018 PRESENTING PROBLEM: Mariam Cleveland is a 32 year old old man who was comes to Genetics Clinic for evaluation for a possible connective tissue disorder. The [facility] EMR was reviewed prior to the visit [...] triple beating He has never seen a helper electrical. Ophthalmology: - he wears glasses for mild [...] [facility] [place] The [address]/ [place] [phone] or appointments office fax Normal [facility] Protein mass conc HNO ID: [id number] Author: Valeria Gutierrez Service: ? Author Type: Genetic Counselor Type: Progress Notes Filed: 07/02/2018 1:45 PM Note Text: GENETIC COUNSELING CONSULTATION Mariam Cleveland is a 32 year old male with a history of joint pain and hypermobility referred for genetic counseling by Dr. Roberto Kinsey. He is unaccompanied to his appointment today. The patient was seen in conjunction with Dr Rebecca Hawkins, Clinical Vp Software Engineering. Please see her clinic note for additional [...] connective tissue disorder. Cardiology evaluations: ECHO 05/04/2017 [facility] Aortic dilatation: No, but aortic dimensions not provided on OSH echo report Mitral valve prolapse: No Arterial tortuosity: Unknown Dural ectasia: Unknown Last eye exam: Unsure Training Mgr: Unknown - glasses since childhood - myopia [...] No SOCIAL HISTORY: Mariam Cleveland lives in [place], [place]. He does not have children. FAMILY [...] cancer, diabetes Patient's maternal ancestors are of [place], [place], and [place] descent, and paternal ancestors are of [place] and [place] descent. The remainder of the family history is negative for aneurysms, sudden , early-onset stroke/IA, known genetic disease, defects, multiple miscarriages or [...] for a total of 30 minutes in [id number] counseling. This plan is being carried out under oversight of Dr. Rebecca Hawkins, Clinical Vp Software Engineering. This note is available to the patient through [employer] and will be sent to the referring provider through [employer] or the [place] Mail as necessary. Valeria Gutierrez MS, [facility], Licensed Genetic Counselor [facility] CC: Dr. Rebecca Wooten, [facility] CC: Mariam Cleveland [address] [place] [address] Roberto Kinsey, DO [address] [place] [address] Normal [facility] Vital Signs Date Time Vital Sign Value Performing Clinician Facility 12-30-2022 09:44-0400 Blood Pressure Location Carlos A CARROLL [facility] 12-30-2022 09:44-0400 Diastolic blood pressure 70 mm[Hg] Carlos A CARROLL [facility] 12-30-2022 09:44-0400 Heart rate 68 /min Carlos A CARROLL [facility] 12-30-2022 09:44-0400 Respiratory rate 16 /min Carlos A CARROLL [facility] 12-30-2022 09:44-0400 Systolic blood pressure 95 mm[Hg] Carlos A CARROLL [facility] 10-24-2022 10:02-0400 Blood Pressure Location Carlos A CARROLL [facility] 10-24-2022 10:02-0400 Diastolic blood pressure 60 mm[Hg] Carlos A CARROLL [facility] 10-24-2022 10:02-0400 Heart rate 80 /min Carlos A CARROLL [facility] 10-24-2022 10:02-0400 Systolic blood pressure 100 mm[Hg] Carlos A CARROLL [facility] 11-15-2021 17:00-0400 Body height 187.96 cm Rebekah Morales Other [facility] Other 11-15-2021 17:00-0400 Body mass index (BMI) [Ratio] 18.61 kg/m2 Rebekah Morales Other [facility] Other 11-15-2021 17:00-0400 Body temperature 97.7 [degF] Rebekah Morales Other [facility] Other 11-15-2021 17:00-0400 Body weight 65.77 kg Rebekah Morales Other [facility] Other 11-15-2021 17:00-0400 Respiratory rate 18 /min Rebekah Morales Other [facility] Other 11-15-2021 17:00-0400 SaO2% (BldA) [Mass fraction] 96 % Rebekah Morales Other [employer] Other Encounters Encounter Date Encounter Type Care Provider Facility Start: 09-04-2023 [facility] Facility:Anni Chilelue Start: 05-16-2023 End: 05-17-2023 ambulatory NITESH SHAMMO Facility:[facility] Start: 05-16-2023 End: 05-16-2023 Lab Drop off Ladonna [facility] Start: 05-16-2023 End: 05-16-2023 Patient encounter procedure Ladonna X Orzech [facility] Start: 01-19-2023 End: 01-20-2023 ambulatory NITESH SHAMMO Facility:CD:[id number] Start: 12-30-2022 End: 12-31-2022 ambulatory NITESH SHAMMO Facility:[facility] Start: 12-30-2022 End: 12-30-2022 Patient encounter procedure Carlos A CARROLL [facility] Start: 10-24-2022 End: 10-25-2022 ambulatory NITESH SHAMMO Facility:[facility] Start: 10-24-2022 End: 10-24-2022 Patient encounter procedure Carlos A CARROLL [facility] Start: 08-10-2022 ambulatory NITESH SHAMMO Facility:[facility] Start: 07-30-2022 Encounter for genera l adult medical examination without abnormal findings NITESH SHAMMO [facility] Start: 07-27-2022 End: 07-27-2022 ambulatory NITESH SHAMMO Facility: Start: 07-27-2022 End: 07-27-2022 Encounter for general adult medical examination without abnormal findings NITESH SHAMMO Facility:[facility] Start: 06-22-2022 End: 06-22-[address] NONE LISTED REQUEST Facility:[facility] Start: 04-20-2022 End: 04-20-[address] NONE LISTED REQUEST Facility:[facility] Start: 03-18-2022 End: 03-18-2022 ambulatory Melissa Holland Facility:[facility] Start: 03-18-2022 End: 03-18-2022 ambulatory [employer] Melissa Holland Work Phone: [facility] Work Phone: Start: 03-18-2022 End: 03-18-2022 Departed [employer]erred [employer] NETWORK ENGINEERLinda Holland Work Phone: [facility] [place] Work Phone: Start: 11-15-2021 End: 11-15-2021 ambulatory Rebekah Morales Other [facility] Other Start: 11-15-2021 Office outpatient ne w 20 minutes Rebekah Morales [facility] Start: 10-03-2021 End: 10-03-[address] EUGENIO RIVAS . Facility: Start: 06-07-2018 End: 06-07-2018 Patient encounter procedure REBECCA HAWKINS [facility] Procedures Date Procedure Procedure Detail Performing Clinician Tonsillectomy Carlos A CARROLL Plan of Treatment Date Care Activity Detail Author Start: 03-18-2022 [facility] Immunizations Immunization Date Immunization Notes Care Provider Ramiro perry 06-18-1997 measles, mumps, rubella, and varicella virus vaccine Carlos A JOSE [facility] NEGATED: Highlighted row has not occurred!05-16-2023 influenza virus vaccine, unspecified formulation Ladonna Langston [facility] Payers Date Payer Category Payer Medicaid [id number] 2022 Self-pay [id number] 1984 Unknown [id number] 2.16.84 [id number] 1984 Unknown [id number] 2.16.84 0.1.768453.3.579.2.593 1984 Unknown [id number] 2.16.84 0.1.200321.3.579.2.593 1984 Unknown [id number] 2.16.84 0.1.976938.3.579.2.593 1984 Unknown [id number] 2.16.8 40.1.725056.3.579.2.727 1984 Unknown [id number] 2.16.8 40.1.897448.3.579.2.727 1984 Unknown [id number] 2.16.8 40.1.328137.3.579.2.727 1984 Unknown [id number] 2.16.8 40.1.535726.3.579.2.727 1984 Unknown [id number] 2.16.8 40.1.440906.3.579.2.727 1984 Unknown [id number] 2.16.8 40.1.336404.3.579.2.727 1984 Unknown [id number] 2.16.8 40.1.902771.3.579.2.727 1959 Unknown [id number] 2.16. [id number] 1959 Unknown [id number] Unknown [id number] 2.16.8 40.1.357463.3.579.2.531 Social History Date Type Detail Facility Unknown if ever smoked [facility] Other Sex Assigned At [facility] Start: 06-14-2017 Tobacco smoking stat us SCIS Smoker (finding) [facility] Start: 1985 Sex Assigned At Male [facility] Tobacco Vaping [facility] Tobacco smoking status No Smokin g Status Entered [facility] Start: 12-30-2022 Tobacco smoking status Never s moked tobacco (finding) [facility] Functional Status Date Assessment Result Facility 05-16-2023 Functional Status N/A [facility] 12-30-2022 Functional Status N/A [facility] 10-24-2022 Functional Status N/A [facility] Hospital Discharge instructions 12-30-2022 Note Date & Type Note Facility 12-30-2022 Hospital Discharg e instructions Patient Education 12/30/2022 10:03:39 Kidney Stones, Jrig-au-Ngvm Kidney Stones Kidney stones are rock-like masses [...] Follow these instructions at home: Medicines Take fvjk-vpb-xuolqmy and prescription medicines only as told by [...] provider. Document Revised: 11/08/2021 Document Reviewed: 11/08/2021 [employer] Patient Education 2022 [employer]. Follow Up Care 10/24/2022 10:53:30 With:JOSE GUTHRIE, Carlos A Burgos, URL Address: [facility] [address] , [place] [address] [phone] When: Unknown Comments:tracy Burgos ESWL w/ poss stent [facility] Hospital Discharge instructions 10-24-2022 Note Date [...] Follow these instructions at home: Medicines Take srlz-sdm-cxndqoz and prescription medicines only as told by [...] important. Where to find more information National [place] of Diabetes and Digestive and Kidney Diseases: [...] depends on the type of prostatitis. Take diox-nkd-bgospzp and prescription medicines only as told by [...] provider. Document Revised: 04/10/2020 Document Reviewed: 04/10/2020 [employer] Patient Education 2022 [employer]. Follow Up Care 08/10/2022 13:43:17 With:JOSE GUTHRIE, Carlos A Burgos, URL Address: [facility] [address], [place] [address] [phone] When: Unknown Comments:2 mos w/ PSA [facility] Evaluation note 11-15-2021 Note Date & Type [...] no improvement in 2 or 3 days. [facility] Other Evaluation + Plan note Note Date & Type Note Facility Evaluation + Plan note Future Appointments Appointment Date:12/30/2022 09:15:00 AM Scheduled Provider:Carlos A CARROLL MD Location:[facility] Appointment Type:URO Office Visit Diagnostic Tests PendingPSA Total 10/24/22 [facility] Evaluation + Plan note Note Date & Type Note Facility Evaluation + Plan note Future Appointments Appointment Date:08/11/2023 10:45:00 AM Scheduled Provider:Carlos A CARROLL MD Location:[facility] Appointment Type:URO Office Visit [facility] Evaluation + Plan note Note Date & Type Note Facility Evaluation + Plan note Future Appointments Appointment Date:08/11/2023 10:45:00 AM Scheduled Provider:Carlos A CARROLL MD Location:[facility] Appointment Type:URO Office Visit Diagnostic Tests PendingUrine Culture 05/16/23 [facility] Evaluation note Note Date & Type Note Facility Evaluation note No assessment information availa [facility] Work Phone: Hospital course Narrative Note Date & Type Note Facility Hospital course Narrative No data available for this section [facility] Hospital Discharge instructions Note Date & Type Note Facility Hospital Discharge instructions No data available for this section [facility] Progress note Note Date & Type Note Facility Progress note No data available for this section [facility] Summary Purpose Family History No Family [...] section and content) DATE CREATED AUTHOR 07/03/2018 [facility] DATE CREATED AUTHOR AUTHOR'S ORGANIZ ATION 03/30/2022 [facility] DATE CREATED AUTHOR AUTHOR'S ORGANIZ ATION 07/30/2022 [facility] DATE CREATED AUTHOR AUTHOR'S ORGANIZ ATION 07/25/2023 [facility] REASON FOR VISIT (unrecogniz ed section [...] BE BASED ON THE PRIMARY CLINICAL RECORDS. [facility] provides no warranty or guarantee of the accuracy or completeness of information in this document.
[2023-08-17 16:12] LABS: Calcium Urine Random 6.7 mg/dL (5.1-21.0); Sodium Urine Random 56 mmol/L (30-90)
[2023-08-17 16:33] LABS: Calcium 24 Hour Urine 174.2 mg/24hr (100.0-300.0); Sodium 24 Hour Urine 146 mmol/24h (40-220); Total Volume 24 Hour Urine 2600 mL/24hr
[2023-08-17 16:56] LABS: Phosphorus 3.2 mg/dL (2.6-4.7); Uric Acid 5.4 mg/dL (3.5-7.2)
[2023-08-18 04:09] LABS: Magnesium, U 8.8 mg/dL (Not Estab.); Magnesium,Urine 24hr 228.8 mg/24 hr (12.0-293.0); Phosphorus, Urine 27.6 mg/dL (Not Estab.); Phosphorus,Urine 24h 718 mg/24 hr (390-1425); Uric Acid, Urine 14.2 mg/dL (Not Estab.); Uric Acid,Urine 24hr 369.2 mg/24 hr (197.2-1078.7)
[2023-08-18 12:14] LABS: PTH, Intact 31 pg/mL (15-65)
== END 2023-08-17 15:46 | disposition home or self-care (01) ==
LOC: LAB 15:46
PROVIDERS: PCP Nurse Practitioner; Visit Provider Urology
DX: R53.83 Other fatigue (principal); Z13.6 Encounter for screening for cardiovascular disorders; R25.2 Cramp and spasm; N20.0 Calculus of kidney
CPT/HCPCS: 36415; 80053; 80061; 82340; 82507; 82570; 83735; 83945; 83970; 84100; 84105; 84300; 84402; 84403; 84550; 84560; 85027